=== PATIENT | female | born 1980 | race Caucasian/White ===

== ENCOUNTER 2020-01-16 14:45 | Outpatient (REF) | payer OTHER, SELFPAY ==
[2020-01-16 17:06] LABS: MANUAL DIFF FLAG NO
[2020-01-16 17:11] LABS: Basophils Percent Auto 0.3 % (0-2); Eosinophils Absolute Auto 0.1 X10*3/uL (0.0-0.4); Eosinophils Percent Auto 0.9 % (0-4); Hematocrit 43.7 % (37-47); Hemoglobin 14.5 g/dl (12.0-16.0); Imm Gran Abs Auto 0.01 X10*3/uL (0.00-0.03); Imm Gran Pct Auto 0.1 % (0.0-0.4); Lymphocytes Absolute Auto 2.8 X10*3/uL (1.2-4.9); Lymphocytes Percent Auto 41.3 % (20-40); Mean Corpuscular HGB Conc 33.2 g/dl (31.0-35.0); Mean Corpuscular Hemoglobin 31.3 pg (27.0-33.0); Mean Corpuscular Volume 94.4 fL (80-98); Mean Platelet Volume 9.9 fL (9.4-12.3); Monocytes Absolute Auto 0.5 X10*3/uL (0.1-1.2); Neutrophils Absolute Auto 3.4 X10*3/uL (2.0-8.3); Neutrophils Percent Auto 50.4 % (45-73); Platelet Count 335 X10*3/uL (160-400); Red Blood Count 4.63 X10*6/uL (4.20-5.50); Red Cell Distribution Width 11.9 % (11.0-16.0); White Blood Count 6.8 X10*3/uL (4.8-10.8)
[2020-01-16 17:46] LABS: Alanine Aminotransferase 15 U/L (0-31); Albumin Level 4.6 g/dL (3.5-5.0); Alkaline Phosphatase 86 U/L (39-117); Amylase 54 U/L (28-100); Anion Gap 11 (12-20); Aspartate Amino Transferase 18 U/L (5-31); Bilirubin Direct 0.2 mg/dL (0.0-0.5); Bilirubin Total 0.4 mg/dL (0.0-1.0); Blood Urea Nitrogen 12 mg/dL (9-16); Calcium 9.6 mg/dL (8.4-10.2); Carbon Dioxide 28 mmol/L (22-29); Chloride 101 mmol/L (96-108); Estimated Glomerular Filt Rate > 60; Glucose Random 81 mg/dL (60-115); Lipase 24 U/L (8-78); Potassium 4.2 mmol/l (3.3-5.1); Sodium 136 mmol/L (135-145); Total Protein 7.8 g/dL (6.5-8.0)
== END 2020-01-16 14:46 | disposition home or self-care (01) ==
LOC: HO.HMGCLDS 14:45
PROVIDERS: PCP Internal Medicine; Visit Provider Nurse Practitioner Family
DX: R10.9 Unspecified abdominal pain (principal)
CPT/HCPCS: 36415; 80048; 80076; 82150; 83690; 85025

== ENCOUNTER 2020-01-16 20:26 | Emergency (ER) | payer OTHER, SELFPAY ==
[2020-01-16 20:41] VITALS: BP 124/84; PULSE 93; RESP 16; TEMP 36.9; O2SAT 96; BMI 29.2
--- NOTE | 2020-01-16 21:25 | ED_ITS ---
HPI - Abdominal Pain General Chief Complaint: Abdominal Pain Stated Complaint: ABD PAIN Time Seen by Provider: 01/16/20 21:24 Source: patient Mode of arrival: ambulatory Limitations: no limitations History of Present Illness HPI narrative: epigastric pain started about 12 hours ago MD elicited complaint: abdominal pain Onset (ago): hour(s) Pain Consistency: constant Severity: moderate Quality: sharp Radiation: epigastric Migration to: no migration Associated symptoms: nausea Related Data Home Medications Medication Instructions Recorded Confirmed albuterol sulfate 90 mcg/actuation 2 puff PO Q2H PRN 01/16/20 aerosol inhaler bupropion HCl 150 mg 24 hr tablet, 150 mg PO DAILY 01/16/20 extended release dicyclomine 10 mg capsule [id number] mg PO QID PRN 01/16/20 duloxetine 60 mg capsule,delayed 60 mg PO DAILY 01/16/20 release famotidine 40 mg tablet 40 mg PO BEDTIME 01/16/20 loratadine 10 mg tablet 10 mg PO DAILY 01/16/20 sennosides 8.6 mg tablet 17.2 mg PO DAILY 01/16/20 tamsulosin 0.4 mg capsule 0.4 mg PO DAILY 01/16/20 Previous Rx's Medication Instructions Recorded omeprazole 20 mg capsule,delayed 20 mg PO DAILY 14 Days #14 cap 01/16/20 release ondansetron 4 mg disintegrating 4 mg PO Q6H PRN #30 tab 01/16/20 tablet bkpsjrqzr-foupzi-qhawrawm-scop 5 ml PO QID #50 ml 01/16/20 [] Allergies Allergy/AdvReac Type Severity Reaction Status Date / Time Penicillins Allergy Mild rash Verified 01/16/20 21:57 penicillin V Allergy Unknown swollen, Verified 01/16/20 21:57 swelling Review of Systems Constitutional: Reports no additional constitutional complaints Eyes: Reports no additional eye complaints Denies dizziness Cardiovascular: Reports no additional cardiovascular complaints Respiratory: Reports as per HPI Gastrointestinal: Reports no additional gastrointestinal complaints Genitourinary: Reports no additional female genitourinary complaints Musculoskeletal: Reports no additional musculoskeletal complaints Skin/Breast: Denies rash Reports system reviewed and no additional complaints, except as documented, Denies dizziness and Denies Sensory deficit (Neuro) Psychiatric: Denies anxiety Physical Exam Vital Signs: Vital Signs: Vital Signs Temp Pulse Resp BP Pulse Ox 01/16/20 20:41 98.5 F 93 16 124/84 96 Body Mass Index 29.2 Const: General: healthy appearing Nutritional Appearance: average body habitus Orientation/consciousness: oriented to person and patient oriented x3 Limitations: no limitations HENMT: Head: Yes normal to inspection Ears: external ears normal General nose exam: Normal external nose present Mouth: Normal oral and palatal mucos a present and oropharynx normal Throat: Yes posterior oropharynx normal Eyes: General: appearance normal, both eyes and all related structures Neck: Other: supple Neck: Yes normal visual inspection Chest: Chest palpation & inspection: normal inspection of the chest Resp: Auscultation: clear to auscultation bilaterally Cardio: Jugular venous distension: no JVD Rate: regular rate Rhythm: regular rhythm Heart sounds: S1 normal heart sound present and S2 normal heart sound present GI: Other: mild right upper quadrant tenderness, epigastric pain mild Inspection: Yes normal to inspection Palpation (GI): Tenderness to palpation present (GI) and No hepatosplenomegaly present Auscultation: normal bowel sounds : General: Yes no CVA tenderness Back/Spine/Pelvis: Back: no CVA tenderness Skin: General skin exam: no rashes or lesions noted Neuro: General: oriented to person and patient oriented x3 Cranial nerves: Yes CN's II-XII intact bilaterally Motor exam (neuro): 5/5 motor strength present throughout Sensory Exam: No Sensory deficit (Neuro) Extrem: General: Yes normal to inspection Psych: Appearance: grossly normal Course Course Course Narrative: Unofficial bedside ultasound shows contracted GB no stones seen Reevaluation(s) Reevaluation #1: patient sleeping resting comfortably Time: 22:49 MDM - Abdominal Pain MDM Narrative Medical decision making narrative: patient with gastritis vs biliary colic, however bedside ultrasound negative, lfts normal will dc home on protonix Differential Diagnosis Differential diagnosis: Likely gastritis, pancreatitis and peptic ulcer disease Lab Data Attestation: I reviewed the patient's lab results. Result diagrams: 01/16/20 21:45 01/16/20 21:45 Labs: Lab Results 01/16/20 01/16/20 01/16/20 Range/Units 21:45 21:45 21:45 WBC 7.4 (4.8-10.8) X10*3/uL RBC 4.32 (4.20-5.50) X10*6/uL Hgb 13.5 (12.0-16.0) g/dl Hct 40.6 (37-47) % MCV 94.0 (80-98) fL MCH 31.3 (27.0-33.0) pg MCHC 33.3 (31.0-35.0) g/dl RDW 11.7 (11.0-16.0) % Plt Count 296 (160-400) X10*3/uL MPV 9.5 (9.4-12.3) fL Immature Gran % (Auto) 0.3 (0.0-0.4) % Neut % (Auto) 41.5 L (45-73) % Lymph % (Auto) 46.3 H (20-40) % [place] % (Auto) 10.3 (2-11) % Eos % (Auto) 1.2 (0-4) % Baso % (Auto) 0.4 (0-2) % Lymph # (Auto) 3.4 (1.2-4.9) X10*3/uL [place] # (Auto) 0.8 (0.1-1.2) X10*3/uL Eos # (Auto) 0.1 (0.0-0.4) X10*3/uL Baso # (Auto) 0.0 (0.0-0.2) X10*3/uL Abs Immat Gran (auto) 0.02 (0.00-0.03) X10*3/uL Absolute Neuts (auto) 3.1 (2.0-8.3) X10*3/uL Absolute Nucleated RBC 0.000 (0.0-0.012) X10*3/uL Nucleated RBC % (auto) 0.0 (0.0-0.2) /100WBC Sodium 137 (135-145) mmol/L Potassium 4.3 (3.3-5.1) mmol/l Chloride 103 (96-108) mmol/L Carbon Dioxide 26 (22-29) mmol/L Anion Gap 12 (12-20) BUN 14 (9-16) mg/dL Creatinine 0.86 (0.5-1.4) mg/dL Estim Creat Clear Calc 82.7 Estimated GFR > 60 Random Glucose 87 (60-115) mg/dL Calcium 9.1 (8.4-10.2) mg/dL Total Bilirubin 0.2 (0.0-1.0) mg/dL Direct Bilirubin < 0.2 (0.0-0.5) mg/dL AST 18 (5-31) U/L ALT 14 (0-31) U/L Alkaline Phosphatase 78 (39-117) U/L Total Protein 6.8 (6.5-8.0) g/dL Albumin 3.9 (3.5-5.0) g/dL Lipase 30 (8-78) U/L Urine Test NEGATIVE (NEGATIVE) Discharge Plan Discharge Clinical Impression: Abdominal pain Qualifiers: Abdominal location: epigastric Qualified Code(s): R10.13 - Epigastric pain Gastritis Qualifiers: Gastritis type: unspecified gastritis Chronicity: unspecified Gastritis bleeding: without bleeding Qualified Code(s): K29.70 - Gastritis, unspecified, without bleeding Patient Disposition: Home, Self-Care Instructions: Gastritis (ED) Prescriptions: New fvveachaz-byfzdd-gbsfkkny-scop [] 16.2 mg-0.1037 mg/5 mL (5 mL) elixir 5 ml PO QID Qty: 50 RF: 0 No Action bupropion HCl 150 mg tablet extended release 24 hr 150 mg PO DAILY RF: 0 duloxetine 60 mg capsule,delayed release(DR/EC) 60 mg PO DAILY RF: 0 dicyclomine 10 mg capsule [id number] mg PO QID PRN (Reason: cramps) RF: 0 tamsulosin 0.4 mg capsule 0.4 mg PO DAILY RF: 0 sennosides 8.6 mg tablet 17.2 mg PO DAILY RF: 0 albuterol sulfate 90 mcg/actuation HFA aerosol inhaler 2 puff PO Q2H PRNRF: 0 loratadine 10 mg tablet 10 mg PO DAILY RF: 0 famotidine 40 mg tablet 40 mg PO BEDTIME RF: 0 ondansetron 4 mg tablet,disintegrating 4 mg PO Q6H PRN (Reason: nausea and vomiting) Qty: 30 RF: 0 omeprazole 20 mg capsule,delayed release(DR/EC) 20 mg PO DAILY 14 Days Qty: 14 RF: 0 PMFSH Past Medical History Medical History (Updated 01/16/20 @ 22:54 by Nick Onofre MD) Fibromyalgia Surgical History (Updated 01/16/20 @ 20:43 by Nils Matamoros) Hx of tonsillectomy Social History Social History Advance Directives: No Advance Directives Information Provided: Yes
--- NOTE | 2020-01-16 21:27 | PC.NURSE ---
Pt ambulating to the bathroom to provide urine sample with a negron/steady gait.
--- NOTE | 2020-01-16 21:32 | PC.NURSE ---
at bedside with Yolanda
[2020-01-16 21:55] LABS: MANUAL DIFF FLAG NO
[2020-01-16] MEDS: Pantoprazole Sodium 40 MG/10 ML VIAL IVPUSH (21:57)
[2020-01-16 21:59] LABS: Basophils Percent Auto 0.4 % (0-2); Eosinophils Absolute Auto 0.1 X10*3/uL (0.0-0.4); Eosinophils Percent Auto 1.2 % (0-4); Hematocrit 40.6 % (37-47); Hemoglobin 13.5 g/dl (12.0-16.0); Imm Gran Abs Auto 0.02 X10*3/uL (0.00-0.03); Imm Gran Pct Auto 0.3 % (0.0-0.4); Lymphocytes Absolute Auto 3.4 X10*3/uL (1.2-4.9); Lymphocytes Percent Auto 46.3 % (20-40); Mean Corpuscular HGB Conc 33.3 g/dl (31.0-35.0); Mean Corpuscular Hemoglobin 31.3 pg (27.0-33.0); Mean Platelet Volume 9.5 fL (9.4-12.3); Monocytes Absolute Auto 0.8 X10*3/uL (0.1-1.2); Monocytes Percent Auto 10.3 % (2-11); Neutrophils Absolute Auto 3.1 X10*3/uL (2.0-8.3); Neutrophils Percent Auto 41.5 % (45-73); Platelet Count 296 X10*3/uL (160-400); Red Blood Count 4.32 X10*6/uL (4.20-5.50); Red Cell Distribution Width 11.7 % (11.0-16.0); White Blood Count 7.4 X10*3/uL (4.8-10.8)
[2020-01-16 22:00] LABS: UPreg QC Valid YES; Urine Pregnancy NEGATIVE (NEGATIVE)
[2020-01-16 22:43] LABS: Alanine Aminotransferase 14 U/L (0-31); Albumin Level 3.9 g/dL (3.5-5.0); Alkaline Phosphatase 78 U/L (39-117); Anion Gap 12 (12-20); Aspartate Amino Transferase 18 U/L (5-31); Bilirubin Direct < 0.2 mg/dL (0.0-0.5); Bilirubin Total 0.2 mg/dL (0.0-1.0); Blood Urea Nitrogen 14 mg/dL (9-16); Calcium 9.1 mg/dL (8.4-10.2); Carbon Dioxide 26 mmol/L (22-29); Chloride 103 mmol/L (96-108); Creatinine Clr Calc Pharmacy 82.7; Estimated Glomerular Filt Rate > 60; Glucose Random 87 mg/dL (60-115); Lipase 30 U/L (8-78); Potassium 4.3 mmol/l (3.3-5.1); Sodium 137 mmol/L (135-145); Total Protein 6.8 g/dL (6.5-8.0)
--- NOTE | 2020-01-16 22:48 | PC.NURSE ---
MD at bedside discussing results and plan of care.
[2020-01-16 23:10] VITALS: BP 106/66; PULSE 82; RESP 16; O2SAT 96
== END 2020-01-16 23:17 | disposition home or self-care (01) ==
PROVIDERS: Emergency Provider Emergency Medicine; PCP Internal Medicine
DX: K29.70 Gastritis, unspecified, without bleeding (principal); R10.13 Epigastric pain
CPT/HCPCS: 36415; 80048; 80076; 81025; 83690; 85025; 96374; 99284

== ENCOUNTER 2020-01-17 09:35 | Outpatient (REF) | payer OTHER, SELFPAY ==
--- NOTE | 2020-01-17 09:39 | US_ITS ---
EXAMINATION: US ABDOMEN LIMITED CLINICAL INFORMATION: Unspecified abdominal pain. COMPARISON: Renal ultrasound 09/26/2019, CT abdomen and pelvis 12/29/2018 and 07/24/2018 TECHNIQUE: Real-time imaging of the right upper quadrant abdominal viscera. FINDINGS: PANCREAS: Pancreas is normal in size and contour and echogenicity. No pancreatic ductal distention or retroperitoneal effusion. LIVER: The liver is normal in size. The liver contour is normal. Parenchymal echogenicity is normal. There is a small cyst central right lobe measuring approximately 1.2 x 0.9 x 0.8 cm, also noted on prior imaging. There is no intrahepatic biliary duct dilatation seen. GALLBLADDER: Normal. The gallbladder is physiologically distended without evidence of stones, sludge, polyps, wall thickening or pericholecystic fluid. COMMON BILE DUCT: Normal in caliber measuring 0.4 cm in diameter. 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 No hydronephrosis. No renal calculi or focal parenchymal lesions. The kidney measures 12.1 cm in maximum dimension. FREE FLUID: None. IMPRESSION: 1. No cholelithiasis or ductal dilatation. Unremarkable pancreas. 2. No right hydronephrosis.
== END 2020-01-17 09:36 | disposition home or self-care (01) ==
LOC: HO.HMGCX 09:35
PROVIDERS: PCP Internal Medicine; Visit Provider Nurse Practitioner Family
DX: R10.9 Unspecified abdominal pain (principal)
CPT/HCPCS: 76705

== ENCOUNTER 2020-02-04 10:10 | Emergency (ER) | payer OTHER, SELFPAY ==
[2020-02-04 10:25] VITALS: BP 142/88; PULSE 68; RESP 16; TEMP 36; O2SAT 100; BMI 28.3
--- NOTE | 2020-02-04 10:26 | ED_ITS ---
HPI - Abdominal Pain General Chief Complaint: Abdominal Pain Stated Complaint: abd pain Time Seen by Provider: 02/04/20 10:17 Source: patient Mode of arrival: ambulatory Limitations: no limitations History of Present Illness HPI narrative: 39 yo female with a past medical history of fibromyalgia, h.pylpori here with abdominal pain x 2 days with nausea. No vomiting/diarrhea/urinary symptoms/fevers/chills. Seen here 01/16 and had labs, US unremarkable. Discussed over zoom with her GI (July Luciano) after ED visit who recommended repeat h.pylori testing, starting prilosec 20mg daily. Patient tells me she has been working alot and has not been able to provide stool sample for h.pylori. Increasing pain since yesterday after eating some [place] potatoes and corned beef meal. MD elicited complaint: abdominal pain Onset (ago): day(s) Pain Consistency: constant Location: diffuse Severity: moderate Migration to: no migration Exacerbating factors: nothing Relieving factors: nothing Associated symptoms: denies other symptoms Related Data Home Medications Medication Instructions Recorded Confirmed albuterol sulfate 90 mcg/actuation 2 puff PO Q2H PRN 01/16/20 aerosol inhaler bupropion HCl 150 mg 24 hr tablet, 150 mg PO DAILY 01/16/20 extended release dicyclomine 10 mg capsule [id number] mg PO QID PRN 01/16/20 duloxetine 60 mg capsule,delayed 60 mg PO DAILY 01/16/20 release famotidine 40 mg tablet 40 mg PO BEDTIME 01/16/20 loratadine 10 mg tablet 10 mg PO DAILY 01/16/20 sennosides 8.6 mg tablet 17.2 mg PO DAILY 01/16/20 tamsulosin 0.4 mg capsule 0.4 mg PO DAILY 01/16/20 Previous Rx's Medication Instructions Recorded ondansetron 4 mg disintegrating 4 mg PO Q6H PRN #30 tab 01/16/20 tablet tctuexpit-aayzrg-skeklvvh-scop 5 ml PO QID #50 ml 01/16/20 [] nitrofurantoin monohyd/m-cryst 100 mg PO Q12H 5 Days #10 cap 02/04/20 [Macrobid] sucralfate [Carafate] 1 g PO BID #14 tab 02/04/20 Allergies Allergy/AdvReac Type Severity Reaction Status Date / Time Penicillins Allergy Mild rash Verified 01/16/20 21:57 penicillin V Allergy Unknown swollen, Verified 01/16/20 21:57 swelling Review of Systems Review of Systems Yes all other systems are reviewed and are negative Constitutional: Reports no additional constitutional complaints, Denies body ache(s), Denies chills, Denies fever(s), Denies headache(s) and Denies weakness Eyes: Reports no additional eye complaints and Denies change in vision Reports system reviewed and no additional complaints, except as documented, Denies dizziness, Denies headache(s), Denies nasal congestion, Denies nasal dis charge and Denies neck pain Cardiovascular: Reports no additional cardiovascular complaints, Denies chest pain, Denies leg edema and Denies dyspnea Respiratory: Reports no additional respiratory complaints, Denies cough and Denies dyspnea Gastrointestinal: Reports no additional gastrointestinal complaints, Reports abdominal pain, Denies diarrhea, Reports nausea and Denies vomiting Genitourinary: Reports no additional female genitourinary complaints and Denies urinary incontinence Musculoskeletal: Reports no additional musculoskeletal complaints, Denies back pain, Denies arthralgias, Denies joint swelling, Denies neck pain, Denies numbness and Denies tingling Skin/Breast: Reports system reviewed and no additional complaints, except as docu and Denies rash Reports system reviewed and no additional complaints, except as documented, Den ies Abnormal speech present, Denies dizziness, Denies headache(s), Denies numbness, Denies tingling and Denies weakness Physical Exam Vital Signs: Vital Signs: Vital Signs Temp Pulse Resp BP Pulse Ox 02/04/20 13:29 95.8 F L 66 15 109/67 99 02/04/20 11:02 16 02/04/20 10:25 96.8 F 68 16 142/88 H 100 Body Mass Index 28.3 Const: Other: Appears uncomfortable, in pain General: cooperative and healthy appearing Orientation/consciousness: patient oriented x3 Limitations: no limitations HENMT: Head: Yes normal to inspection Ears: hearing grossly normal bilaterally General nose exam: Normal external nose present Face and sinus: Yes normal facial exam Mouth: Normal oral and palatal mucosa present Throat: Yes posterior oropharynx normal Eyes: General: appearance normal, both eyes and all related structures Pupils: Equal, round and reactive pupils present Neck: Neck: Yes normal visual inspection Chest: Chest palpation & inspection: normal inspection of the chest Resp: Effort & Inspection: normal respiratory effort Auscultation: clear to auscultation bilaterally Cardio: Rate: regular rate Rhythm: regular rhythm Peripheral pulses: Peripheral pulses 2+ throughout GI: Other: Diffuse moderate tenderness, more focal in the right upper/lower quadrants. Inspection: Yes normal to inspection Palpation (GI): Soft to palpation and Tenderness to palpation present (GI) Auscultation: normal bowel sounds Back/Spine/Pelvis: Thoracic/Lumbar Spine: thoracic and lumbar spine normal to inspection Skin: General skin exam: no rashes or lesions noted Neuro: General: patient oriented x3, no focal motor deficits and normal sensation to monofilament Cranial nerves: Yes Equal, round and reactive pupils present Cognition (Neuro): normal cognition Speech: No Abnormal speech present Gait exam (Neuro): Normal gait present Motor exam (neuro): 5/5 motor strength present throughout Extrem: General: Yes normal to inspection Course Course Course Narrative: 39 yo female here with diffuse AP, nausea x 2 days. Will check labs, UA, check CT A/P. Give NSB, antiemetic, analgesia and re-assess. 1305-Labs unremarkable, UA ?early UTI. Ct a/p unremarkable. Unable to visualize appendix however patient has no focal tenderness in the RLQ. No rebound, guarding, leukocytosis. Feeling improved on discharge. Will discharge home and continue PPI, start carafate, f/u with GI for h.pylori testing as previously recommended. MDM - Abdominal Pain MDM Narrative Medical decision making narrative: Considered peptic ulcer disease, gastritis, GERD, gastroenteritis, cholecystitis, appendicitis, renal colic Medical Records Attestation: I reviewed the patient's medical records. Lab Data Attestation: I reviewed the patient's lab results. Result diagrams: 02/04/20 10:52 02/04/20 10:52 Labs: Lab Results 02/04/20 02/04/20 02/04/20 Range/Units 10:52 10:52 10:52 WBC 5.7 (4.8-10.8) X10*3/uL RBC 4.67 (4.20-5.50) X10*6/uL Hgb 14.6 (12.0-16.0) g/dl Hct 44.1 (37-47) % MCV 94.4 (80-98) fL MCH 31.3 (27.0-33.0) pg MCHC 33.1 (31.0-35.0) g/dl RDW 11.6 (11.0-16.0) % Plt Count 356 (160-400) X10*3/uL MPV 9.5 (9.4-12.3) fL Immature Gran % (Auto) 0.0 (0.0-0.4) % Neut % (Auto) 42.9 L (45-73) % Lymph % (Auto) 47.5 H (20-40) % [place] % (Auto) 8.5 (2-11) % Eos % (Auto) 0.7 (0-4) % Baso % (Auto) 0.4 (0-2) % Lymph # (Auto) 2.7 (1.2-4.9) X10*3/uL [place] # (Auto) 0.5 (0.1-1.2) X10*3/uL Eos # (Auto) 0.0 (0.0-0.4) X10*3/uL Baso # (Auto) 0.0 (0.0-0.2) X10*3/uL Abs Immat Gran (auto) 0.00 (0.00-0.03) X10*3/uL Absolute Neuts (auto) 2.4 (2.0-8.3) X10*3/uL Absolute Nucleated RBC 0.000 (0.0-0.012) X10*3/uL Nucleated RBC % (auto) 0.0 (0.0-0.2) /100WBC Sodium 140 (135-145) mmol/L Potassium 4.8 (3.3-5.1) mmol/l Chloride 102 (96-108) mmol/L Carbon Dioxide 31 H (22-29) mmol/L Anion Gap 12 (12-20) BUN 12 (9-16) mg/dL Creatinine 0.79 (0.5-1.4) mg/dL Estim Creat Clear Calc 88.7 Estimated GFR > 60 Random Glucose 90 (60-115) mg/dL Calcium 9.8 (8.4-10.2) mg/dL Magnesium 2.2 (1.6-2.6) mg/dL Total Bilirubin 0.7 (0.0-1.0) mg/dL Direct Bilirubin 0.2 (0.0-0.5) mg/dL AST 23 (5-31) U/L ALT 14 (0-31) U/L Alkaline Phosphatase 88 (39-117) U/L Total Protein 7.5 (6.5-8.0) g/dL Albumin 4.4 (3.5-5.0) g/dL Lipase 37 (8-78) U/L Urine Color Urine Appearance Urine pH (5.0-8.0) Ur Specific [place] (1.005-1.025) Urine Protein (NEG-TRACE) MG/DL Urine Glucose (UA) (NEG) MG/DL Urine Ketones (NEG) MG/DL Urine Blood (NEG) Urine Nitrite (NEG) Ur Leukocyte Esterase (NEG) Urine RBC (0) /HPF Urine WBC (0-4) /HPF Ur Squamous Epith Cells /LPF Urine Bacteria /LPF Urine Test (NEGATIVE) 02/04/20 Range/Units 10:52 WBC (4.8-10.8) X10*3/uL RBC (4.20-5.50) X10*6/uL Hgb (12.0-16.0) g/dl Hct (37-47) % MCV (80-98) fL MCH (27.0-33.0) pg MCHC (31.0-35.0) g/dl RDW (11.0-16.0) % Plt Count (160-400) X10*3/uL MPV (9.4-12.3) fL Immature Gran % (Auto) (0.0-0.4) % Neut % (Auto) (45-73) % Lymph % (Auto) (20-40) % [place] % (Auto) (2-11) % Eos % (Auto) (0-4) % Baso % (Auto) (0-2) % Lymph # (Auto) (1.2-4.9) X10*3/uL [place] # (Auto) (0.1-1.2) X10*3/uL Eos # (Auto) (0.0-0.4) X10*3/uL Baso # (Auto) (0.0-0.2) X10*3/uL Abs Immat Gran (auto) (0.00-0.03) X10*3/uL Absolute Neuts (auto) (2.0-8.3) X10*3/uL Absolute Nucleated RBC (0.0-0.012) X10*3/uL Nucleated RBC % (auto) (0.0-0.2) /100WBC Sodium (135-145) mmol/L Potassium (3.3-5.1) mmol/l Chloride (96-108) mmol/L Carbon Dioxide (22-29) mmol/L Anion Gap (12-20) BUN (9-16) mg/dL Creatinine (0.5-1.4) mg/dL Estim Creat Clear Calc Estimated GFR Random Glucose (60-115) mg/dL Calcium (8.4-10.2) mg/dL Magnesium (1.6-2.6) mg/dL Total Bilirubin (0.0-1.0) mg/dL Direct Bilirubin (0.0-0.5) mg/dL AST (5-31) U/L ALT (0-31) U/L Alkaline Phosphatase (39-117) U/L Total Protein (6.5-8.0) g/dL Albumin (3.5-5.0) g/dL Lipase (8-78) U/L Urine Color YELLOW Urine Appearance CLEAR Urine pH 7.0 (5.0-8.0) Ur Specific [place] 1.010 (1.005-1.025) Urine Protein NEG (NEG-TRACE) MG/DL Urine Glucose (UA) NEG (NEG) MG/DL Urine Ketones NEG (NEG) MG/DL Urine Blood TRACE (NEG) Urine Nitrite NEG (NEG) Ur Leukocyte Esterase NEG (NEG) Urine RBC 0-2 (0) /HPF Urine WBC 0 (0-4) /HPF Ur Squamous Epith Cells TRACE /LPF Urine Bacteria NONE /LPF Urine Test NEGATIVE (NEGATIVE) Imaging Data CT scan - abdomen: Attestation: I personally reviewed and interpreted this imaging study as follows: Radiologist's impression: EXAMINATION: CT ABDOMEN AND PELVIS WITH CONTRAST CLINICAL INFORMATION: Diffuse abdominal pain, vomiting. COMPARISON: CT chest 09/17/2019, CT abdomen and pelvis 12/21/2018 TECHNIQUE: Multidetector volumetric images were obtained from the superior aspect of the liver through the pubic symphysis following administration 85 mL ofOmnipaque 350 intravenous contrast. Sagittal and coronal reformatted images were obtained on the technologist's workstation. Oral contrast: No This CT examination was performed using dose optimization techniques as appropriate, variously including the following: *Automated exposure control *Adjustment of mA and/or kV according to patient size (this includes techniques or standardized protocols for targeted exams where dose is matched to indication/reason for exam; i.e. extremities or head) *Use of iterative reconstruction technique DLP: 668 mGy-cm FINDINGS: LUNG BASES: There is minimal dependent atelectasis. LIVER, GALLBLADDER, AND BILIARY TREE: The liver is normal in size, shape, and attenuation. There is a 1.1 cm hypodensity right hepatic lobe, image 21/3, likely cysts. There is a left hepatic lobe hypodensity with peripheral contrast enhancement likely hemangioma measuring 1.5 cm and axial image 17/3. No intrahepatic ductal dilatation seen. The gallbladder is unremarkable with no evidence of radiopaque gallstones, gallbladder wall thickening, or obvious pericholecystic inflammatory changes. PANCREAS: Unremarkable. SPLEEN: Unremarkable. ADRENAL GLANDS: Unremarkable. KIDNEYS AND URETERS: The kidneys are normal in size, shape, and attenuation. No hydronephrosis, hydroureter, or calculi seen. No perinephric stranding. BLADDER: Unremarkable. GASTROINTESTINAL TRACT: There is scattered stool and gas seen throughout the colon without distention. The small bowel loops are normal caliber. Appendix is not visualized with certainty. The stomach is nondistended. ABDOMINAL WALL: No significant hernia is appreciated. LYMPH NODES: Few benign lymph nodes are seen in the right lower quadrant mesentery. VASCULAR: Unremarkable. PELVIC VISCERA: The uterus is retroverted with an IUD well located within endometrial canal. No adnexal mass seen. There is no free fluid. OSSEOUS STRUCTURES: No lytic or sclerotic process seen. CT/CT abdomen pelvis w con IMPRESSION: No acute intra-abdominal process seen. Likely small cyst right hepatic lobe and a hemangioma left hepatic lobe. Mild constipation. Appendix is not seen. Retroverted uterus. Discharge Plan Discharge Clinical Impression: Gastritis, UTI (urinary tract infection) Patient Disposition: Home, Self-Care Instructions: Gastritis (ED) Additional Instructions: Very bland diet Follow-up with GI as discussed for additional testing. Prescriptions: New nitrofurantoin monohyd/m-cryst [Macrobid] 100 mg capsule 100 mg PO Q12H 5 Days Qty: 10 RF: 0 sucralfate [Carafate] 1 gram tablet 1 g PO BID Qty: 14 RF: 0 No Action kmjhsrjzq-dgscor-gjxnqvbu-scop [] 16.2 mg-0.1037 mg/5 mL (5 mL) elixir 5 ml PO QID Qty: 50 RF: 0 bupropion HCl 150 mg tablet extended release 24 hr 150 mg PO DAILY RF: 0 duloxetine 60 mg capsule,delayed release(DR/EC) 60 mg PO DAILY RF: 0 dicyclomine 10 mg capsule [id number] mg PO QID PRN (Reason: cramps) RF: 0 tamsulosin 0.4 mg capsule 0.4 mg PO DAILY RF: 0 sennosides 8.6 mg tablet 17.2 mg PO DAILY RF: 0 albuterol sulfate 90 mcg/actuation HFA aerosol inhaler 2 puff PO Q2H PRNRF: 0 loratadine 10 mg tablet 10 mg PO DAILY RF: 0 famotidine 40 mg tablet 40 mg PO BEDTIME RF: 0 ondansetron 4 mg tablet,disintegrating 4 mg PO Q6H PRN (Reason: nausea and vomiting) Qty: 30 RF: 0 Referrals: Monalisa Urban MD [Primary Care Provider] - 2 days Stand Alone Forms: Work/School Release Interventions: ED Discharge Assessment Last Done: 02/04/20 14:42 Discharge Date/Time: 02/04/20 14:43 [facility] Past Medical History Attestation statement: The following information was validated with the patient. Source: obtained from family and nursing notes reviewed Medical History Fibromyalgia Surgical History Hx of tonsillectomy Social History Social History Smoking Status: Never smoker Use of substances other than those prescribed or required for medical reasons: No Advance Directives: No Advance Directives Information Provided: Yes
[2020-02-04 11:02] VITALS: RESP 16
[2020-02-04] MEDS: Morphine Sulfate 4 MG/ML CARTRIDGE IVPUSH (11:02)
[2020-02-04] MEDS: ondansetron HCL 4 MG/2 ML VIAL IVPUSH (11:02)
[2020-02-04] MEDS: 0.9 % Sodium Chloride 1,000 ML 999 ML IV (11:02)
[2020-02-04] MEDS: Famotidine/PF 20 MG/2 ML VIAL IVPUSH (11:03)
--- NOTE | 2020-02-04 11:03 | PC.NURSE ---
ns 1l bolus scanned x 3
[2020-02-04 11:25] LABS: MANUAL DIFF FLAG NO
[2020-02-04 11:28] LABS: Basophils Percent Auto 0.4 % (0-2); Eosinophils Percent Auto 0.7 % (0-4); Hematocrit 44.1 % (37-47); Hemoglobin 14.6 g/dl (12.0-16.0); Lymphocytes Absolute Auto 2.7 X10*3/uL (1.2-4.9); Lymphocytes Percent Auto 47.5 % (20-40); Mean Corpuscular HGB Conc 33.1 g/dl (31.0-35.0); Mean Corpuscular Hemoglobin 31.3 pg (27.0-33.0); Mean Corpuscular Volume 94.4 fL (80-98); Mean Platelet Volume 9.5 fL (9.4-12.3); Monocytes Absolute Auto 0.5 X10*3/uL (0.1-1.2); Monocytes Percent Auto 8.5 % (2-11); Neutrophils Absolute Auto 2.4 X10*3/uL (2.0-8.3); Neutrophils Percent Auto 42.9 % (45-73); Platelet Count 356 X10*3/uL (160-400); Red Blood Count 4.67 X10*6/uL (4.20-5.50); Red Cell Distribution Width 11.6 % (11.0-16.0); White Blood Count 5.7 X10*3/uL (4.8-10.8)
[2020-02-04 11:48] LABS: Lipase 37 U/L (8-78); Magnesium 2.2 mg/dL (1.6-2.6)
[2020-02-04 11:55] LABS: Alanine Aminotransferase 14 U/L (0-31); Albumin Level 4.4 g/dL (3.5-5.0); Alkaline Phosphatase 88 U/L (39-117); Anion Gap 12 (12-20); Aspartate Amino Transferase 23 U/L (5-31); Bilirubin Direct 0.2 mg/dL (0.0-0.5); Bilirubin Total 0.7 mg/dL (0.0-1.0); Blood Urea Nitrogen 12 mg/dL (9-16); Calcium 9.8 mg/dL (8.4-10.2); Carbon Dioxide 31 mmol/L (22-29); Chloride 102 mmol/L (96-108); Creatinine Clr Calc Pharmacy 88.7; Estimated Glomerular Filt Rate > 60; Glucose Random 90 mg/dL (60-115); Potassium 4.8 mmol/l (3.3-5.1); Sodium 140 mmol/L (135-145); Total Protein 7.5 g/dL (6.5-8.0)
[2020-02-04 12:02] LABS: Glucose Urine UA NEG (NEG); Leukocyte Esterase Urine NEG (NEG); Nitrite Urine NEG (NEG); Urine Blood TRACE (NEG); Urine Ketones NEG (NEG); Urine Protein NEG (NEG-TRACE)
[2020-02-04 12:06] LABS: Appearance Urine CLEAR; Color Urine YELLOW
[2020-02-04 12:08] LABS: UPreg QC Valid YES; Urine Pregnancy NEGATIVE (NEGATIVE)
[2020-02-04 12:28] LABS: RBC Urine 0-2 /HPF (0); Squamous Epithelial Cell Urine TRACE /LPF; WBC Urine 0 /HPF (0-4)
[2020-02-04] MEDS: iohexoL 350 MG/ML 100 ML INFUS..BTL IV (12:31)
[2020-02-04 13:29] VITALS: BP 109/67; PULSE 66; RESP 15; TEMP 35.4; O2SAT 99
[2020-02-04] MEDS: Lidocaine HCl Viscous 2 % 15 ML SOLUTION MUCOUS MEM (13:35)
[2020-02-04] MEDS: Magnesium Hydrox/Alum Hydrox 30 ML ORAL.SUSP PO (13:35)
== END 2020-02-04 14:43 | disposition home or self-care (01) ==
PROVIDERS: Nurse Practitioner Family; Emergency Provider Emergency Medicine; PCP Internal Medicine
DX: K29.70 Gastritis, unspecified, without bleeding (principal); N39.0 Urinary tract infection, site not specified; Z79.899 Other long term (current) drug therapy
CPT/HCPCS: 36415; 74177; 80048; 80076; 81001; 81003; 81025; 83690; 83735; 85025; 96361; 96374; 96375; 99284; J2270; J2405; Q9967

== ENCOUNTER 2020-02-05 17:58 | Outpatient (REF) | payer OTHER, SELFPAY | END 2020-02-05 17:59 | disposition home or self-care (01) | LOC: HO.LNP 17:58 | PROVIDERS: Visit Provider Nurse Practitioner | DX: R10.13 Epigastric pain (principal); A04.8 Other specified bacterial intestinal infections | CPT/HCPCS: 87338 ==

== ENCOUNTER 2020-02-17 18:47 | Emergency (ER) | payer OTHER, SELFPAY ==
[2020-02-17 19:23] VITALS: BP 115/62; PULSE 100; RESP 16; TEMP 36.5; O2SAT 100; BMI 27.4
[2020-02-17 20:22] LABS: Glucose Urine UA NEG (NEG); Leukocyte Esterase Urine NEG (NEG); Nitrite Urine NEG (NEG); Urine Blood 1+ (NEG); Urine Ketones NEG (NEG); Urine Protein NEG (NEG-TRACE)
[2020-02-17 20:24] LABS: Appearance Urine CLEAR; Color Urine YELLOW
[2020-02-17 20:25] LABS: UPreg QC Valid YES; Urine Pregnancy NEGATIVE (NEGATIVE)
[2020-02-17 20:29] LABS: Squamous Epithelial Cell Urine 1+ /LPF; WBC Urine 0 /HPF (0-4)
[2020-02-17 21:33] LABS: Basophils Percent Auto 0.4 % (0-2); Eosinophils Percent Auto 0.5 % (0-4); Hematocrit 41.1 % (37-47); Hemoglobin 13.6 g/dl (12.0-16.0); Imm Gran Abs Auto 0.01 X10*3/uL (0.00-0.03); Imm Gran Pct Auto 0.1 % (0.0-0.4); Lymphocytes Absolute Auto 3.6 X10*3/uL (1.2-4.9); Lymphocytes Percent Auto 47.1 % (20-40); MANUAL DIFF FLAG NO; Mean Corpuscular HGB Conc 33.1 g/dl (31.0-35.0); Mean Corpuscular Hemoglobin 31.2 pg (27.0-33.0); Mean Corpuscular Volume 94.3 fL (80-98); Mean Platelet Volume 9.4 fL (9.4-12.3); Monocytes Absolute Auto 0.7 X10*3/uL (0.1-1.2); Monocytes Percent Auto 8.8 % (2-11); Neutrophils Absolute Auto 3.3 X10*3/uL (2.0-8.3); Neutrophils Percent Auto 43.1 % (45-73); Platelet Count 293 X10*3/uL (160-400); Red Blood Count 4.36 X10*6/uL (4.20-5.50); Red Cell Distribution Width 11.5 % (11.0-16.0); White Blood Count 7.7 X10*3/uL (4.8-10.8)
--- NOTE | 2020-02-17 21:35 | ED.ABDPAIN ---
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 likely IBS comes here with lower abdominal pain for last 6 hours with nausea patient has been constipated for a while no vomiting no fever previous workup was negative had upper GI 3 years ago which showed H pylori patient has a plan to follow-up with poultry slaughterer MD elicited complaint: abdominal pain Pertinent past history: constipation Onset (ago): hour(s) (7) Pain Consistency: constant Location: suprapubic Severity: mild Quality: cramping Radiation: suprapubic Migration to: no migration Related Data Home Medications Medication Instructions Recorded Confirmed albuterol sulfate 90 mcg/actuation 2 puff PO Q2H PRN 01/16/20 aerosol inhaler bupropion HCl 150 mg 24 hr tablet, 150 mg PO DAILY 01/16/20 extended release dicyclomine 10 mg capsule [id number] mg PO QID PRN 01/16/20 duloxetine 60 mg capsule,delayed 60 mg PO DAILY 01/16/20 release famotidine 40 mg tablet 40 mg PO BEDTIME 01/16/20 loratadine 10 mg tablet 10 mg PO DAILY 01/16/20 sennosides 8.6 mg tablet 17.2 mg PO DAILY 01/16/20 tamsulosin 0.4 mg capsule 0.4 mg PO DAILY 01/16/20 Previous Rx's Medication Instructions Recorded ondansetron 4 mg disintegrating 4 mg PO Q6H PRN #30 tab 01/16/20 tablet dcipesbdz-zosmis-oshkfgvj-scop 5 ml PO QID #50 ml 01/16/20 [] nitrofurantoin monohyd/m-cryst 100 mg PO Q12H 5 Days #10 cap 02/04/20 [Macrobid] sucralfate [Carafate] 1 g PO BID #14 tab 02/04/20 Allergies Allergy/AdvReac Type Severity Reaction Status Date / Time Penicillins Allergy Mild rash Verified 01/16/20 21:57 penicillin V Allergy Unknown swollen, Verified 01/16/20 21:57 swelling Review of Systems Review of Systems REVIEW OF SYSTEMS: Pertinent positives and negatives are stated above in the history. GEN: no fevers, chills, fatigue HEENT: no nasal congestion, sore throat, ear pain NEURO: no headache, dizziness, focal weakness PULM: no cough, shortness of breath CV: no chest pain, palpitations, LE edema ABD: no vomiting, diarrhea : no dysuria, urgency, frequency SKIN: no rash ROS otherwise negative x 10 Physical Exam Vital Signs: Vital Signs: Last Vital Signs Temp 97.7 F 02/17/20 19:23 Pulse 100 02/17/20 19:23 Resp 16 02/17/20 19:23 BP 115/62 02/17/20 19:23 Pulse Ox 100 02/17/20 19:23 Body Mass Index 27.4 Appearance: Alert. Oriented X3. No acute distress. Eyes: Pupils equal, round and reactive to light. ENT: Pharynx normal. Neck: Normal inspection. Neck supple. CVS: Normal heart rate and rhythm. Pulses normal. Respiratory: No respiratory distress. Breath sounds normal. Abdomen: Soft mild diffuse tenderness lower abdomen no rebound tenderness no guarding no masses bowel sounds normal. Skin: Skin warm and dry. Normal skin color. Normal skin turgor. Extremities: No lower extremity edema. Good range of movement Neuro: Oriented X 3. No motor deficit. No sensory deficit. Course Course Course Narrative: patient with chronic nonspecific lower abdominal pain in the past on dicyclomine which she did not take today comes here with similar complaints already seen by poultry slaughterer clinically patient is IBS labs were normal to discharge her home on dicyclomine advised to follow-up with poultry slaughterer MDM - Abdominal Pain Differential Diagnosis Differential diagnosis: Likely abdominal pain and constipation Medical Records Attestation: I reviewed the patient's medical records. Lab Data Attestation: I reviewed the patient's lab results. Result diagrams: 02/17/20 21:25 02/17/20 21:25 Labs: Lab Results 02/17/20 02/17/20 02/17/20 Range/Units 19:59 19:59 21:25 WBC 7.7 (4.8-10.8) X10*3/uL RBC 4.36 (4.20-5.50) X10*6/uL Hgb 13.6 (12.0-16.0) g/dl Hct 41.1 (37-47) % MCV 94.3 (80-98) fL MCH 31.2 (27.0-33.0) pg MCHC 33.1 (31.0-35.0) g/dl RDW 11.5 (11.0-16.0) % Plt Count 293 (160-400) X10*3/uL MPV 9.4 (9.4-12.3) fL Immature Gran % (Auto) 0.1 (0.0-0.4) % Neut % (Auto) 43.1 L (45-73) % Lymph % (Auto) 47.1 H (20-40) % [place] % (Auto) 8.8 (2-11) % Eos % (Auto) 0.5 (0-4) % Baso % (Auto) 0.4 (0-2) % Lymph # (Auto) 3.6 (1.2-4.9) X10*3/uL [place] # (Auto) 0.7 (0.1-1.2) X10*3/uL Eos # (Auto) 0.0 (0.0-0.4) X10*3/uL Baso # (Auto) 0.0 (0.0-0.2) X10*3/uL Abs Immat Gran (auto) 0.01 (0.00-0.03) X10*3/uL Absolute Neuts (auto) 3.3 (2.0-8.3) X10*3/uL Absolute Nucleated RBC 0.000 (0.0-0.012) X10*3/uL Nucleated RBC % (auto) 0.0 (0.0-0.2) /100WBC Hold Blue Top Sodium (135-145) mmol/L Potassium (3.3-5.1) mmol/l Chloride (96-108) mmol/L Carbon Dioxide (22-29) mmol/L Anion Gap (12-20) BUN (9-16) mg/dL Creatinine (0.5-1.4) mg/dL Estim Creat Clear Calc Estimated GFR Random Glucose (60-115) mg/dL Calcium (8.4-10.2) mg/dL Total Bilirubin (0.0-1.0) mg/dL AST (5-31) U/L ALT (0-31) U/L Alkaline Phosphatase (39-117) U/L Total Protein (6.5-8.0) g/dL Albumin (3.5-5.0) g/dL Urine Color YELLOW Urine Appearance CLEAR Urine pH 7.0 (5.0-8.0) Ur Specific [place] 1.010 (1.005-1.025) Urine Protein NEG (NEG-TRACE) MG/DL Urine Glucose (UA) NEG (NEG) MG/DL Urine Ketones NEG (NEG) MG/DL Urine Blood 1+ H (NEG) Urine Nitrite NEG (NEG) Ur Leukocyte Esterase NEG (NEG) Urine RBC 1-4 (0) /HPF Urine WBC 0 (0-4) /HPF Ur Squamous Epith Cells 1+ /LPF Urine Bacteria NONE /LPF Urine Test NEGATIVE (NEGATIVE) 02/17/20 02/17/20 Range/Units 21:25 21:25 WBC (4.8-10.8) X10*3/uL RBC (4.20-5.50) X10*6/uL Hgb (12.0-16.0) g/dl Hct (37-47) % MCV (80-98) fL MCH (27.0-33.0) pg MCHC (31.0-35.0) g/dl RDW (11.0-16.0) % Plt Count (160-400) X10*3/uL MPV (9.4-12.3) fL Immature Gran % (Auto) (0.0-0.4) % Neut % (Auto) (45-73) % Lymph % (Auto) (20-40) % [place] % (Auto) (2-11) % Eos % (Auto) (0-4) % Baso % (Auto) (0-2) % Lymph # (Auto) (1.2-4.9) X10*3/uL [place] # (Auto) (0.1-1.2) X10*3/uL Eos # (Auto) (0.0-0.4) X10*3/uL Baso # (Auto) (0.0-0.2) X10*3/uL Abs Immat Gran (auto) (0.00-0.03) X10*3/uL Absolute Neuts (auto) (2.0-8.3) X10*3/uL Absolute Nucleated RBC (0.0-0.012) X10*3/uL Nucleated RBC % (auto) (0.0-0.2) /100WBC Hold Blue Top SEE NOTE Sodium 137 (135-145) mmol/L Potassium 4.0 (3.3-5.1) mmol/l Chloride 102 (96-108) mmol/L Carbon Dioxide 29 (22-29) mmol/L Anion Gap 10 L (12-20) BUN 13 (9-16) mg/dL Creatinine 0.80 (0.5-1.4) mg/dL Estim Creat Clear Calc 86.2 Estimated GFR > 60 Random Glucose 67 (60-115) mg/dL Calcium 8.9 D (8.4-10.2) mg/dL Total Bilirubin 0.5 (0.0-1.0) mg/dL AST 17 (5-31) U/L ALT 13 (0-31) U/L Alkaline Phosphatase 72 (39-117) U/L Total Protein 7.1 (6.5-8.0) g/dL Albumin 4.3 (3.5-5.0) g/dL Urine Color Urine Appearance Urine pH (5.0-8.0) Ur Specific [place] (1.005-1.025) Urine Protein (NEG-TRACE) MG/DL Urine Glucose (UA) (NEG) MG/DL Urine Ketones (NEG) MG/DL Urine Blood (NEG) Urine Nitrite (NEG) Ur Leukocyte Esterase (NEG) Urine RBC (0) /HPF Urine WBC (0-4) /HPF Ur Squamous Epith Cells /LPF Urine Bacteria /LPF Urine Test (NEGATIVE) Discharge Plan Discharge Prescriptions: No Action nitrofurantoin monohyd/m-cryst [Macrobid] 100 mg capsule 100 mg PO Q12H 5 Days Qty: 10 RF: 0 sucralfate [Carafate] 1 gram tablet 1 g PO BID Qty: 14 RF: 0 cuxxvjphb-meryye-[place]ak-scop [] 16.2 mg-0.1037 mg/5 mL (5 mL) elixir 5 ml PO QID Qty: 50 RF: 0 bupropion HCl 150 mg tablet extended release 24 hr 150 mg PO DAILY RF: 0 duloxetine 60 mg capsule,delayed release(DR/EC) 60 mg PO DAILY RF: 0 dicyclomine 10 mg capsule [id number] mg PO QID PRN (Reason: cramps) RF: 0 tamsulosin 0.4 mg capsule 0.4 mg PO DAILY RF: 0 sennosides 8.6 mg tablet 17.2 mg PO DAILY RF: 0 albuterol sulfate 90 mcg/actuation HFA aerosol inhaler 2 puff PO Q2H PRNRF: 0 loratadine 10 mg tablet 10 mg PO DAILY RF: 0 famotidine 40 mg tablet 40 mg PO BEDTIME RF: 0 ondansetron 4 mg tablet,disintegrating 4 mg PO Q6H PRN (Reason: nausea and vomiting) Qty: 30 RF: 0 PMFSH Past Medical History Medical History Fibromyalgia Surgical History Hx of tonsillectomy Social History Social History Smoking Status: Never smoker Advance Directives: No Advance Directives Information Provided: No Advance Directives on File: No
[2020-02-17] MEDS: Dicyclomine HCl 10 MG CAPSULE 20 MG PO (21:51)
[2020-02-17 22:08] LABS: Alanine Aminotransferase 13 U/L (0-31); Albumin Level 4.3 g/dL (3.5-5.0); Alkaline Phosphatase 72 U/L (39-117); Anion Gap 10 (12-20); Aspartate Amino Transferase 17 U/L (5-31); Bilirubin Total 0.5 mg/dL (0.0-1.0); Blood Urea Nitrogen 13 mg/dL (9-16); Calcium 8.9 mg/dL (8.4-10.2); Carbon Dioxide 29 mmol/L (22-29); Chloride 102 mmol/L (96-108); Creatinine Clr Calc Pharmacy 86.2; Estimated Glomerular Filt Rate > 60; Glucose Random 67 mg/dL (60-115); Sodium 137 mmol/L (135-145); Total Protein 7.1 g/dL (6.5-8.0)
== END 2020-02-17 22:24 | disposition home or self-care (01) ==
PROVIDERS: Emergency Provider Internal Medicine; PCP Internal Medicine
DX: R10.30 Lower abdominal pain, unspecified (principal); K59.00 Constipation, unspecified; Z79.899 Other long term (current) drug therapy
CPT/HCPCS: 36415; 80053; 81001; 81025; 85025; 99283

== ENCOUNTER → 2020-02-26 15:47 | Outpatient (BNVA) | payer OTHER, SELFPAY | PROVIDERS: PCP Internal Medicine; Referring Provider Internal Medicine; Visit Provider Nurse Practitioner | DX: K59.04 Chronic idiopathic constipation (principal); R10.13 Epigastric pain; M79.7 Fibromyalgia; Z87.891 Personal history of nicotine dependence | CPT/HCPCS: 99212 ==

== ENCOUNTER 2020-03-10 14:33 | Emergency (ER) | payer OTHER, SELFPAY ==
[2020-03-10 15:00] VITALS: BP 107/74; PULSE 91; RESP 18; TEMP 37.3; O2SAT 98; BMI 28.3
--- NOTE | 2020-03-10 15:34 | CT_ITS ---
EXAMINATION: CT ABDOMEN AND PELVIS WITH CONTRAST CLINICAL INFORMATION: Right lower quadrant abdominal pain COMPARISON: Multiple prior exams. Most recent CT scan abdomen pelvis 02/04/2020 TECHNIQUE: Multidetector volumetric images were obtained from the superior aspect of the liver through the pubic symphysis following administration 85 mL of Omnipaque 350 intravenous contrast. Sagittal and coronal reformatted images were obtained on the technologist's workstation. Oral contrast: No This CT examination was performed using dose optimization techniques as appropriate, variously including the following: *Automated exposure control *Adjustment of mA and/or kV according to patient size (this includes techniques or standardized protocols for targeted exams where dose is matched to indication/reason for exam; i.e. extremities or head) *Use of iterative reconstruction technique DLP: 594 mGy-cm FINDINGS: LUNG BASES: The visualized lung bases are unremarkable. LIVER, GALLBLADDER, AND BILIARY TREE: The liver is normal in size, shape, and attenuation. No focal hepatic lesion or biliary ductal dilatation is present. Small hypodensity in the mid right lobe of liver unchanged since prior studies consistent with small hepatic cyst. There is a stable hemangioma the anterior left lobe of which liver measuring about 1.4 cm of size. The gallbladder is unremarkable with no evidence of radiopaque gallstones, gallbladder wall thickening, or obvious pericholecystic inflammatory changes. PANCREAS: Unremarkable. SPLEEN: Unremarkable. ADRENAL GLANDS: Unremarkable. KIDNEYS AND URETERS: The kidneys are normal in size, shape, and attenuation. No hydronephrosis, hydroureter, or calculi seen. No perinephric stranding. BLADDER: Unremarkable. GASTROINTESTINAL TRACT: There is no acute abnormality. There is no bowel wall thickening /edema. There is no bowel obstruction. There is a moderate volume of stool in the colon. The appendix is nonvisualized . There is no inflammation the mesentery The small bowel loops are unremarkable. The stomach is normal. There is no hiatal hernia. ABDOMINAL WALL: No significant hernia is appreciated. LYMPH NODES: Normal. VASCULAR: Unremarkable. PELVIC VISCERA: Uterus is retroverted. IUD in the endometrial cavity. There is no adnexal abnormality. OSSEOUS STRUCTURES: Unremarkable. CT/CT abdomen pelvis w con IMPRESSION: There is no acute abnormality the abdomen or the pelvis. The appendix is not visualized. There is no inflammation the mesentery. There is no acute abnormality of the bowel.
[2020-03-10] MEDS: 0.9 % Sodium Chloride 1,000 ML 999 ML IV (15:48)
[2020-03-10] MEDS: Morphine Sulfate 4 MG/ML CARTRIDGE IVPUSH (15:52)
[2020-03-10] MEDS: ondansetron HCL 4 MG/2 ML VIAL IVPUSH (15:52)
[2020-03-10 15:53] VITALS: BP 112/72; PULSE 72; RESP 17; O2SAT 100
[2020-03-10 15:54] LABS: MANUAL DIFF FLAG NO
[2020-03-10 15:57] LABS: Basophils Percent Auto 0.3 % (0-2); Eosinophils Percent Auto 0.5 % (0-4); Glucose Urine UA NEG (NEG); Hematocrit 41.5 % (37-47); Imm Gran Abs Auto 0.01 X10*3/uL (0.00-0.03); Imm Gran Pct Auto 0.1 % (0.0-0.4); Leukocyte Esterase Urine NEG (NEG); Lymphocytes Absolute Auto 2.8 X10*3/uL (1.2-4.9); Lymphocytes Percent Auto 38.6 % (20-40); Mean Corpuscular HGB Conc 33.7 g/dl (31.0-35.0); Mean Corpuscular Hemoglobin 31.5 pg (27.0-33.0); Mean Corpuscular Volume 93.3 fL (80-98); Mean Platelet Volume 9.6 fL (9.4-12.3); Monocytes Absolute Auto 0.5 X10*3/uL (0.1-1.2); Monocytes Percent Auto 6.9 % (2-11); Neutrophils Absolute Auto 3.9 X10*3/uL (2.0-8.3); Neutrophils Percent Auto 53.6 % (45-73); Nitrite Urine NEG (NEG); PH 7.5 (5.0-8.0); Platelet Count 321 X10*3/uL (160-400); Red Blood Count 4.45 X10*6/uL (4.20-5.50); Red Cell Distribution Width 11.3 % (11.0-16.0); Specific Gravity - Urine 1.015 (1.005-1.025); Urine Blood TRACE (NEG); Urine Ketones NEG (NEG); Urine Protein NEG (NEG-TRACE); White Blood Count 7.3 X10*3/uL (4.8-10.8)
[2020-03-10 16:00] LABS: Appearance Urine CLEAR; Color Urine YELLOW; UPreg QC Valid YES; Urine Pregnancy NEGATIVE (NEGATIVE)
[2020-03-10 16:18] LABS: Bacteria Urine TRACE /LPF; RBC Urine 0 /HPF (0); Squamous Epithelial Cell Urine 1+ /LPF; WBC Urine 0 /HPF (0-4)
[2020-03-10 16:20] VITALS: BP 113/73; PULSE 78; RESP 17; TEMP 36.9; O2SAT 100
[2020-03-10] MEDS: Ketorolac Tromethamine 30 MG/ML VIAL IVPUSH (16:28)
[2020-03-10 16:39] LABS: Alanine Aminotransferase 13 U/L (0-31); Albumin Level 4.3 g/dL (3.5-5.0); Alkaline Phosphatase 68 U/L (39-117); Anion Gap 10 (12-20); Aspartate Amino Transferase 18 U/L (5-31); Bilirubin Total 0.5 mg/dL (0.0-1.0); Blood Urea Nitrogen 7 mg/dL (9-16); Calcium 9.2 mg/dL (8.4-10.2); Carbon Dioxide 28 mmol/L (22-29); Chloride 103 mmol/L (96-108); Estimated Glomerular Filt Rate > 60; Glucose Random 88 mg/dL (60-115); Potassium 4.1 mmol/l (3.3-5.1); Sodium 137 mmol/L (135-145)
[2020-03-10] MEDS: iohexoL 350 MG/ML 100 ML INFUS..BTL IV (17:01)
--- NOTE | 2020-03-10 17:46 | US_ITS ---
EXAMINATION: PELVIC ULTRASOUND CLINICAL INFORMATION: Pelvic pain with question of torsion COMPARISON: CT abdomen pelvis earlier today TECHNIQUE: Both transabdominal endovaginal scanning was performed. Spectral Doppler imaging was also utilized. FINDINGS: Retroverted retroflexed uterus is present measuring 9.5 x 3.4 x 6.2 cm. Endometrial thickness is 0.4 cm. An IUD appears in good position within the endometrial cavity. Right ovary measures 3.7 x 1.7 x 1.9 cm for a volume of 6.3 mL and contains a corpus luteal cyst measuring 2.0 x 0.9 x 1.2 cm. Left ovary measures 3.2 x 1.9 x 1.4 cm for a volume of 4.5 mL and appears normal. A small amount of free fluid is present in the cul-de-sac. Doppler study: Both ovaries demonstrate normal arterial and venous Doppler signal. There is no evidence of ovarian torsion. US/US pelvic complete IMPRESSION: An IUD is present in good position within the uterus. A small amount of free pelvic fluid is seen. No evidence of ovarian torsion.
--- NOTE | 2020-03-10 17:46 | US_ITS ---
EXAMINATION: PELVIC ULTRASOUND CLINICAL INFORMATION: Pelvic pain with question of torsion COMPARISON: CT abdomen pelvis earlier today TECHNIQUE: Both transabdominal endovaginal scanning was performed. Spectral Doppler imaging was also utilized. FINDINGS: Retroverted retroflexed uterus is present measuring 9.5 x 3.4 x 6.2 cm. Endometrial thickness is 0.4 cm. An IUD appears in good position within the endometrial cavity. Right ovary measures 3.7 x 1.7 x 1.9 cm for a volume of 6.3 mL and contains a corpus luteal cyst measuring 2.0 x 0.9 x 1.2 cm. Left ovary measures 3.2 x 1.9 x 1.4 cm for a volume of 4.5 mL and appears normal. A small amount of free fluid is present in the cul-de-sac. Doppler study: Both ovaries demonstrate normal arterial and venous Doppler signal. There is no evidence of ovarian torsion. US/US pelvic ovarian doppler IMPRESSION: An IUD is present in good position within the uterus. A small amount of free pelvic fluid is seen. No evidence of ovarian torsion.
[2020-03-10] MEDS: Acetaminophen 325 MG TABLET 975 MG PO (17:52)
--- NOTE | 2020-03-10 18:00 | US_ITS ---
EXAMINATION: PELVIC ULTRASOUND CLINICAL INFORMATION: Pelvic pain with question of torsion COMPARISON: CT abdomen pelvis earlier today TECHNIQUE: Both transabdominal endovaginal scanning was performed. Spectral Doppler imaging was also utilized. FINDINGS: Retroverted retroflexed uterus is present measuring 9.5 x 3.4 x 6.2 cm. Endometrial thickness is 0.4 cm. An IUD appears in good position within the endometrial cavity. Right ovary measures 3.7 x 1.7 x 1.9 cm for a volume of 6.3 mL and contains a corpus luteal cyst measuring 2.0 x 0.9 x 1.2 cm. Left ovary measures 3.2 x 1.9 x 1.4 cm for a volume of 4.5 mL and appears normal. A small amount of free fluid is present in the cul-de-sac. Doppler study: Both ovaries demonstrate normal arterial and venous Doppler signal. There is no evidence of ovarian torsion. US/US transvaginal IMPRESSION: An IUD is present in good position within the uterus. A small amount of free pelvic fluid is seen. No evidence of ovarian torsion.
--- NOTE | 2020-03-10 19:07 | ED_ITS ---
HPI - Abdominal Pain General Chief Complaint: Abdominal Pain Stated Complaint: abd pain Time Seen by Provider: 03/10/20 15:33 Source: patient Mode of arrival: ambulatory Limitations: no limitations History of Present Illness HPI narrative: 31-year-old female with history of anxiety presenting with complaint of states she was seen this morning at her primary care doctor for acute right lower quadrant pain and since the emergency room for rule out appendicitis. States she woke up with right lower quadrant abdominal pain this morning progressively getting worse with associated nausea but no vomiting or diarrhea. Denies any fever or chills. No recent sick contacts. No URI symptoms. MD elicited complaint: abdominal pain Onset (ago): hour(s) Location: RLQ Severity: moderate Quality: cramping and stabbing Migration to: no migration Exacerbating factors: nothing Associated symptoms: denies other symptoms Treatments prior to arrival: other Related Data Home Medications Medication Instructions Recorded Confirmed albuterol sulfate 90 mcg/actuation 2 puff PO Q2H PRN 01/16/20 aerosol inhaler bupropion HCl 150 mg 24 hr tablet, 150 mg PO DAILY 01/16/20 extended release dicyclomine 10 mg capsule [id number] mg PO QID PRN 01/16/20 duloxetine 60 mg capsule,delayed 60 mg PO DAILY 01/16/20 release famotidine 40 mg tablet 40 mg PO BEDTIME 01/16/20 loratadine 10 mg tablet 10 mg PO DAILY 01/16/20 tamsulosin 0.4 mg capsule 0.4 mg PO DAILY 01/16/20 diphenhydramine HCl 25 mg tablet 25 mg PO BEDTIME 02/26/20 Previous Rx's Medication Instructions Recorded ondansetron 4 mg disintegrating 4 mg PO Q6H PRN #30 tab 01/16/20 tablet linaclotide 145 mcg capsule 145 mcg PO QAM #30 cap 02/26/20 Allergies Allergy/AdvReac Type Severity Reaction Status Date / Time Penicillins Allergy Mild rash Verified 02/26/20 15:55 Review of Systems Review of Systems Constitutional: No Weight loss, No Fever, No Chills, No Night Sweats, No Fatigue, No Malaise ENT/Mouth: No Hearing loss, No Ear Pain, No Nasal Congestion, No Sinus Pain, No Hoarseness, No sore throat, No Rhinorrhea, No Swallowing Difficulty Eyes: No Eye Pain, No Swelling, No Redness, No Foreign Body, No Discharge, No Vision Changes Cardiovascular: No Chest Pain, No SOB, No Dyspnea on Exertion, No Orthopnea, No Edema, No Palpitations Respiratory: No Cough, No Sputum, No Wheezing, No Smoke Exposure, No Dyspnea Gastrointestinal: + Nausea, No Vomiting, No Diarrhea, No Constipation, + abdominal Pain, No Hematochezia, No Melena Genitourinary: no irregular bleeding, No Dysuria, No Urinary Frequency, No Hematuria, No Urinary Incontinence, No Urgency, No Flank Pain, No Urinary Flow Changes, No Hesitancy Musculoskeletal: No joint pain, No Myalgias, No Joint Swelling Skin: No Skin Lesions, No rash Neuro: No Weakness, No Numbness, No Paresthesias, No Loss of Consciousness, No Dizziness, No Headache Psych: No Anxiety/Panic, No Depression, No SI/HI/AH/VH, No Social Issues Heme/Lymph: No Bruising, No Bleeding,No Lymphadenopathy Endocrine: No Polyuria, No Polydipsia, No Temperature Intolerance Physical Exam Vital Signs: Vital Signs: Last Vital Signs Temp 98.7 F 03/10/20 19:21 Pulse 70 03/10/20 19:21 Resp 16 03/10/20 19:21 BP 102/69 03/10/20 19:21 Pulse Ox 100 03/10/20 19:21 Body Mass Index 28.3 Reviewed Const: General: cooperative and healthy appearing; No acute distress or intoxicated appearing Nutritional Appearance: average body habitus Orientation/consciousness: patient oriented x3 HENMT: Head: Yes normal to inspection Ears: hearing grossly normal bilaterally Eyes: General: appearance normal, both eyes and all related structures Visual Marie: normal visual marie by confrontation Neck: Neck: Yes normal visual inspection and No tender Thyroid: Thyroid no rmal Chest: Chest palpation & inspection: normal inspection of the chest Resp: Effort & Inspection: normal respiratory effort Auscultation: clear to auscultation bilaterally Cardio: Jugular venous distension: no JVD Rhythm: regular rhythm GI: Inspection: Yes normal to inspection Palpation (GI): Tenderness to palpation present (GI) and Guarding due to palpation present (GI) in the RLQ Percussion: Yes normal to percussion Auscultation: normal bowel sounds : General: Yes no CVA tenderness Back/Spine/Pelvis: Back: no CVA tenderness Skin: General skin exam: no rashes or lesions noted Neuro: General: patient oriented x3 Extrem: General: Yes normal to inspection Course Course Course Narrative: CT scan of the abdomen pelvis with IV contrast showed no acute abnormality. She has for additional pain medications subsequently ultrasound of the pelvis was done rule out cyst versus torsion and this was also within normal limits. At this point patient has had serial examinations as well as studies all reassuring unclear etiology of her pain though I do not suspect this to be any acute etiology. No evidence of acute abdomen. No peritonitis. She is hemodynamically stable. Will discharge home with clear precaution return follow-up instructions with advice to follow up with her smallpox hospital doctor in return instructions as well as follow-up with GI. Patient did eat and drink in the ED. He got up to go the bathroom without any evidence of abdominal guarding. MDM - Abdominal Pain MDM Narrative Medical decision making narrative: labs overall reassuring. No leukocytosis risk and benefits of repeating the CT scan reviewed including differential of having renal calculi, appendicitis versus ovarian etiology she would like to go ahead and proceed with a CT scan. Differential Diagnosis Differential diagnosis: Likely abdominal pain, acute appendicitis, calculus of kidney, ovarian cyst and renal colic; Unlikely aortic dissection, bowel perforation, constipation, diverticulitis, endometriosis, gastroenteritis, gastritis, mesenteric ischemia, pancreatitis, peptic ulcer disease and small bowel obstruction Differential diagnosis narrative:: Medical Records Attestation: I reviewed the patient's medical records. Medical records narrative: PATIENT WAS HERE PREVIOUSLY IN JANUARY AND THEN IN BEGINNING OF FEBRUARY FOR WHICH SHE REPORTS EPIGASTRIC PAIN THIS PAIN IS DIFFERENT. THESE RECORDS REVIEWED INCLUDING ULTRASOUND OF THE ABDOMEN WELL ct ABD/ PELVIC Lab Data Result diagrams: 03/10/20 15:46 03/10/20 15:46 Labs: Lab Results 03/10/20 03/10/20 03/10/20 Range/Units 15:46 15:46 15:46 WBC 7.3 (4.8-10.8) X10*3/uL RBC 4.45 (4.20-5.50) X10*6/uL Hgb 14.0 (12.0-16.0) g/dl Hct 41.5 (37-47) % MCV 93.3 (80-98) fL MCH 31.5 (27.0-33.0) pg MCHC 33.7 (31.0-35.0) g/dl RDW 11.3 (11.0-16.0) % Plt Count 321 (160-400) X10*3/uL MPV 9.6 (9.4-12.3) fL Immature Gran % (Auto) 0.1 (0.0-0.4) % Neut % (Auto) 53.6 (45-73) % Lymph % (Auto) 38.6 (20-40) % [place] % (Auto) 6.9 (2-11) % Eos % (Auto) 0.5 (0-4) % Baso % (Auto) 0.3 (0-2) % Lymph # (Auto) 2.8 (1.2-4.9) X10*3/uL [place] # (Auto) 0.5 (0.1-1.2) X10*3/uL Eos # (Auto) 0.0 (0.0-0.4) X10*3/uL Baso # (Auto) 0.0 (0.0-0.2) X10*3/uL Abs Immat Gran (auto) 0.01 (0.00-0.03) X10*3/uL Absolute Neuts (auto) 3.9 (2.0-8.3) X10*3/uL Absolute Nucleated RBC 0.000 (0.0-0.012) X10*3/uL Nucleated RBC % (auto) 0.0 (0.0-0.2) /100WBC Sodium 137 (135-145) mmol/L Potassium 4.1 (3.3-5.1) mmol/l Chloride 103 (96-108) mmol/L Carbon Dioxide 28 (22-29) mmol/L Anion Gap 10 L (12-20) BUN 7 L (9-16) mg/dL Creatinine 0.77 (0.5-1.4) mg/dL Estim Creat Clear Calc 91.0 Estimated GFR > 60 Random Glucose 88 (60-115) mg/dL Calcium 9.2 (8.4-10.2) mg/dL Total Bilirubin 0.5 (0.0-1.0) mg/dL AST 18 (5-31) U/L ALT 13 (0-31) U/L Alkaline Phosphatase 68 (39-117) U/L Total Protein 7.0 (6.5-8.0) g/dL Albumin 4.3 (3.5-5.0) g/dL Urine Color YELLOW Urine Appearance CLEAR Urine pH 7.5 (5.0-8.0) Ur Specific [place] 1.015 (1.005-1.025) Urine Protein NEG (NEG-TRACE) MG/DL Urine Glucose (UA) NEG (NEG) MG/DL Urine Ketones NEG (NEG) MG/DL Urine Blood TRACE (NEG) Urine Nitrite NEG (NEG) Ur Leukocyte Esterase NEG (NEG) Urine RBC 0 (0) /HPF Urine WBC 0 (0-4) /HPF Ur Squamous Epith Cells 1+ /LPF Urine Bacteria TRACE /LPF Urine Test NEGATIVE (NEGATIVE) Imaging Data CT scan - abdomen: Radiologist's impression: [place] [address] CT Scan Report Signed Patient: Jennifer Landrum#: [id number] : 1980Acct:[id number] Age/Sex: 39 / FADM Date: 03/10/20 Loc: HO.ED Attending Dr: Ordering Physician: Jasen Mccelllan NP Date of Service: 03/10/20 Procedure(s): CT abdomen pelvis w con Accession Number(s): [id number] cc: Jasen Mcclellan NP~ EXAMINATION: CT ABDOMEN AND PELVIS WITH CONTRAST CLINICAL INFORMATION: Right lower quadrant abdominal pain COMPARISON: Multiple prior exams. Most recent CT scan abdomen pelvis 02/04/2020 TECHNIQUE: Multidetector volumetric images were obtained from the superior aspect of the liver through the pubic symphysis following administration 85 mL of Omnipaque 350 intravenous contrast. Sagittal and coronal reformatted images were obtained on the technologist's workstation. Oral contrast: No This CT examination was performed using dose optimization techniques as appropriate, variously including the following: *Automated exposure control *Adjustment of mA and/or kV according to patient size (this includes techniques or standardized protocols for targeted exams where dose is matched to indication/reason for exam; i.e. extremities or head) *Use of iterative reconstruction technique DLP: 594 mGy-cm FINDINGS: LUNG BASES: The visualized lung bases are unremarkable. LIVER, GALLBLADDER, AND BILIARY TREE: The liver is normal in size, shape, and attenuation. No focal hepatic lesion or biliary ductal dilatation is present. Small hypodensity in the mid right lobe of liver unchanged since prior studies consistent with small hepatic cyst. There is a stable hemangioma the anterior left lobe of which liver measuring about 1.4 cm of size. The gallbladder is unremarkable with no evidence of radiopaque gallstones, gallbladder wall thickening, or obvious pericholecystic inflammatory changes. PANCREAS: Unremarkable. SPLEEN: Unremarkable. ADRENAL GLANDS: Unremarkable. KIDNEYS AND URETERS: The kidneys are normal in size, shape, and attenuation. No hydronephrosis, hydroureter, or calculi seen. No perinephric stranding. BLADDER: Unremarkable. GASTROINTESTINAL TRACT: There is no acute abnormality. There is no bowel wall thickening /edema. There is no bowel obstruction. There is a moderate volume of stool in the colon. The appendix is nonvisualized . There is no inflammation the mesentery The small bowel loops are unremarkable. The stomach is normal. There is no hiatal hernia. ABDOMINAL WALL: No significant hernia is appreciated. LYMPH NODES: Normal. VASCULAR: Unremarkable. PELVIC VISCERA: Uterus is retroverted. IUD in the endometrial cavity. There is no adnexal abnormality. OSSEOUS STRUCTURES: Unremarkable. CT/CT abdomen pelvis w con IMPRESSION: There is no acute abnormality the abdomen or the pelvis. The appendix is not visualized. There is no inflammation the mesentery. There is no acute abnormality of the bowel. Dictated By:MAURILIO WYMAN MD Signed By:<Electronically signed by MAURILIO WYMAN MD in OV>03/10/20 1722 DD/ 1534 TD/TT: Equine Manager: CHRYSTAL Pelvis ovarian ultrasound: Radiologist's impression: [address] [address] Ultrasound Report Signed Patient: Jennifer Landrum#: [id number] : 1980Acct:[id number] Age/Sex: 39 / FADM Date: 03/10/20 Loc: HO.ED Attending Dr: Ordering Physician: Jasen Mcclellan NP Date of Service: 03/10/20 Procedure(s): US pelvic ovarian doppler Accession Number(s): [id number] cc: Jasen Mcclellan NP~ EXAMINATION: PELVIC ULTRASOUND CLINICAL INFORMATION: Pelvic pain with question of torsion COMPARISON: CT abdomen pelvis earlier today TECHNIQUE: Both transabdominal endovaginal scanning was performed. Spectral Doppler imaging was also utilized. FINDINGS: Retroverted retroflexed uterus is present measuring 9.5 x 3.4 x 6.2 cm. Endometrial thickness is 0.4 cm. An IUD appears in good position within the endometrial cavity. Right ovary measures 3.7 x 1.7 x 1.9 cm for a volume of 6.3 mL and contains a corpus luteal cyst measuring 2.0 x 0.9 x 1.2 cm. Left ovary measures 3.2 x 1.9 x 1.4 cm for a volume of 4.5 mL and appears normal. A small amount of free fluid is present in the cul-de-sac. Doppler study: Both ovaries demonstrate normal arterial and venous Doppler signal. There is no evidence of ovarian torsion. US/US pelvic ovarian doppler IMPRESSION: An IUD is present in good position within the uterus. A small amount of free pelvic fluid is seen. No evidence of ovarian torsion. Dictated By:ÁNGELA LEACH MD Signed By:<Electronically signed by ÁNGELA LEACH MD in OV>03/10/20 1842 DD/ 1746 TD/TT: Equine Manager: SS Discharge Plan Discharge Clinical Impression: Abdominal pain Patient Disposition: Home, Self-Care Instructions: Abdominal Pain (ED) Additional Instructions: your CT scan of the abdomen did not show any acute infection or evidence of appendicitis today Your blood work was overall stable The ultrasound did not show any ovarian cyst or ovarian torsion I do not have a clear cause of your pain today I would like for to follow up with her primary care doctor and if abdominal pain continues please 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 Return to emergency if any concerns or worsening symptoms Thank you Prescriptions: No Action bupropion HCl 150 mg tablet extended release 24 hr 150 mg PO DAILY RF: 0 duloxetine 60 mg capsule,delayed release(DR/EC) 60 mg PO DAILY RF: 0 dicyclomine 10 mg capsule [id number] mg PO QID PRN (Reason: cramps) RF: 0 tamsulosin 0.4 mg capsule 0.4 mg PO DAILY RF: 0 albuterol sulfate 90 mcg/actuation HFA aerosol inhaler 2 puff PO Q2H PRNRF: 0 loratadine 10 mg tablet 10 mg PO DAILY RF: 0 famotidine 40 mg tablet 40 mg PO BEDTIME RF: 0 ondansetron 4 mg tablet,disintegrating 4 mg PO Q6H PRN (Reason: nausea and vomiting) Qty: 30 RF: 0 Linzess 145 mcg capsule 145 mcg PO QAM Qty: 30 RF: 3 Referrals: Monalisa Urban MD [Primary Care Provider] - 1 week [facility] Past Medical History Medical History Fibromyalgia Surgical History Hx of tonsillectomy Family History Family History (Updated 02/26/20 @ 16:04 by BOB Moy) Family/Other No problems noted. Social History Social History (Updated 02/26/20 @ 16:05 by BOB Moy) Alcohol intake: current Alcohol intake frequency: holidays/special occasions only Smoking Status: Never smoker Advance Directives: No Advance Directives Information Provided: Yes
[2020-03-10 19:21] VITALS: BP 102/69; PULSE 70; RESP 16; TEMP 37.1; O2SAT 100
== END 2020-03-10 20:45 | disposition home or self-care (01) ==
PROVIDERS: Nurse Practitioner Primary Care; Emergency Provider Emergency Medicine; PCP Internal Medicine
DX: R10.31 Right lower quadrant pain (principal); R10.2 Pelvic and perineal pain
CPT/HCPCS: 36415; 74177; 76830; 76856; 80053; 81001; 81025; 85025; 93975; 96361; 96374; 96375; 99284; J1885; J2270; J2405; Q9967

== ENCOUNTER → 2020-03-18 14:53 | Outpatient (BNVA) | payer OTHER, SELFPAY | PROVIDERS: PCP Internal Medicine; Visit Provider Nurse Practitioner | DX: Z76.89 Persons encountering health services in other specified circumstances (principal) ==

== ENCOUNTER 2020-10-05 17:37 | Emergency (ER) | payer OTHER, SELFPAY ==
--- NOTE | ~2020-10-05 | CT_ITS ---
EXAMINATION: CT ABDOMEN AND PELVIS WITHOUT CONTRAST CLINICAL INFORMATION: Right side abdomen pain COMPARISON: Portions of a previous study 03/10/20 TECHNIQUE: Multidetector volumetric imaging was performed from the superior aspect of the liver through the pubic symphysis. Sagittal and coronal reformatted images were obtained on the technologist's workstation. This CT examination was performed using dose optimization techniques as appropriate, variously including the following: *Automated exposure control *Adjustment of mA and/or kV according to patient size (this includes techniques or standardized protocols for targeted exams where dose is matched to indication/reason for exam; i.e. extremities or head) *Use of iterative reconstruction technique DLP: 519 mGy-cm FINDINGS: Digital Traffic Enumerator: No opaque calculus. Gas and enteric material throughout large and small bowel to level the rectum. LUNG BASES: There are a few nonspecific reticular opacities in the visualized lung bases. LIVER, GALLBLADDER, AND BILIARY TREE: There is a circumscribed round low attenuating lesion in hepatic segment 6 which likely represents a cyst and is unchanged. There is a subtle low attenuating lesion abutting the ventral aspect at the junction of hepatic segment 2 and 3. Previously this had peripheral enhancement suggesting hemangioma. There is no opaque gallstone. There is no biliary dilation. PANCREAS: Limited assessment without a definite abnormality. SPLEEN: Normal ADRENAL GLANDS: No suspicious abnormality KIDNEYS AND URETERS: There is visualization of the intrarenal collecting system and proximal ureter on the right. The mid and distal ureter do not appear dilated and there is no definite opaque urinary calculus. There is no perinephric stranding. No suspicious renal mass. BLADDER: Within normal limits GASTROINTESTINAL TRACT: Large amount of fecal residue throughout the colon. No definite CT evidence of acute appendicitis. No evidence of small bowel obstruction. No suspicious abnormality the stomach. There are a few nonspecific mesenteric lymph nodes. ABDOMINAL WALL: No significant hernia is appreciated. LYMPH NODES: No retroperitoneal adenopathy. No upper abdominal fluid. Trace amount of nonspecific free pelvic fluid. There was a similar amount of pelvic fluid on 03/10/20 VASCULAR: No abdominal aortic aneurysm PELVIC VISCERA: The uterus is retroverted and retroflexed. Small amount of gas near the vaginal fornices. There is an IUD present which appears contained within the uterus. OSSEOUS STRUCTURES: No suspicious abnormality. CT/CT abdomen pelvis wo con IMPRESSION: No etiology for right-sided pain demonstrated. Specifically no evidence of opaque urinary calculus. No bowel obstruction.
[2020-10-05 17:50] VITALS: BP 118/77; PULSE 93; RESP 18; TEMP 37.3; O2SAT 99; BMI 27.8
--- NOTE | 2020-10-05 18:31 | ED.ABDPAIN ---
HPI - Abdominal Pain General Chief Complaint: Abdominal Pain Stated Complaint: Abd pain Time Seen by Provider: 10/05/20 18:29 Source: patient Mode of arrival: ambulatory Limitations: no limitations History of Present Illness HPI narrative: 39-year-old female came in to the emergency department for evaluation of nausea, vomiting, abdominal pain. Symptoms started since yesterday, no history of suspicious bad food, patient just traveled from [place] yesterday, no sick contact, symptoms is worsening by food, nothing made symptoms better, no fever, no chills. Never had the symptoms in the past, patient was evaluated at walk-in Urgent care clinic. Related Data Home Medications Medication Instructions Recorded Confirmed albuterol sulfate 90 mcg/actuation 2 puff PO Q2H PRN 01/16/20 04/07/20 aerosol inhaler duloxetine 60 mg capsule,delayed 60 mg PO DAILY 01/16/20 04/07/20 release loratadine 10 mg tablet 10 mg PO DAILY 01/16/20 04/07/20 diphenhydramine HCl 25 mg tablet 25 mg PO BEDTIME 02/26/20 04/07/20 lorazepam 0.5 mg tablet 0.5 mg PO DAILY PRN 04/07/20 04/07/20 Previous Rx's Medication Instructions Recorded linaclotide 145 mcg capsule 145 mcg PO QAM #30 cap 02/26/20 dicyclomine 20 mg tablet 20 mg PO QID 30 Days #120 tab 03/18/20 lactulose 10 gram/15 mL oral 10 g PO BEDTIME PRN 30 Days #237 ml 04/07/20 solution pantoprazole 40 mg tablet,delayed 40 mg PO DAILY 90 Days #90 tab 04/07/20 release bupropion HCl 150 mg 24 hr tablet, 150 mg PO DAILY 90 Days #90 tab 08/25/20 extended release terbinafine HCl 250 mg tablet 250 mg PO DAILY 90 Days #90 tab 08/25/20 omeprazole magnesium [Prilosec OTC] 20 mg PO BID #60 tab 10/05/20 ondansetron HCl [Zofran] 4 mg PO Q8H PRN #10 tab 10/05/20 Allergies Allergy/AdvReac Type Severity Reaction Status Date / Time Penicillins Allergy Mild rash Verified 04/07/20 11:40 Review of Systems Review of Systems all other systems are reviewed and are negative Constitutional: Reports as per HPI and Reports no additional constitutional complaints Eyes: Reports as per HPI and Reports no additional eye complaints Reports system reviewed and no additional complaints, except as documented Cardiovascular: Reports as per HPI and Reports no additional cardiovascular complaints Respiratory: Reports as per HPI and Reports no additional respiratory complaints Gastrointestinal: Reports as per HPI and Reports no additional gastrointestinal complaints Genitourinary: Reports no additional female genitourinary complaints Musculoskeletal: Reports no additional musculoskeletal complaints Skin/Breast: Reports system reviewed and no additional complaints, except as docu Psychiatric: Reports no additional psychiatric complaints Endocrine: Reports no additional endocrine complaints Hematologic/Lymphatic: Reports no additional hematologic/lymphatic complaints Allergic/Immunologic: Reports no additional allergic/immunologic complaints Reports system reviewed and no additional complaints, except as documented and Reports Abnormal speech present Physical Exam Vital Signs: Vital Signs: Last Vital Signs Temp 98.9 F 10/05/20 19:15 Pulse 75 10/05/20 20:00 Resp 16 10/05/20 20:00 BP 100/65 10/05/20 20:00 Pulse Ox 99 10/05/20 20:00 Body Mass Index 27.8 vital signs have been reviewed as appeared to be correct. Blood pressure normal. Heart rate normal. Respiration rate normal. Temperature normal. Oxygen saturation normal. Appearance: Alert. Oriented X3. No acute distress. Head: Normal external exam. Normocephalic. Atraumatic. No Mg signs noted. No raccoon eyes noted Eyes: PERRLA. EOMI. Conjunctiva and sclera normal. Eyelids normal. ENT: TM's Normal. Pharynx normal. Uvula midline. Moist mucous membranes. No trismus noted. No drooling noted. No muffled voice noted. Neck: Normal inspection. Neck supple. FROM. No adenopathy. Thyroid Normal. No meningeal signs. No neck mass noted. CVS: Normal heart rate and rhythm. Heart sound normal. No murmurs noted. Pulses normal throughout. Respiratory: No respiratory distress. Painless inspiration. Breath sounds normal. No wheezes/rales/rhonchi noted. Chest nontender. No accessory muscle usage noted or decreased air movement noted. Abdomen: Soft, lower abdominal tenderness, no rebound tenderness, no guarding. Bowel sounds normal in all 4 quadrants. No distention noted. No organomegaly noted. No visible injury noted. Back: No CVA tenderness. Full range of motion noted. Skin: Skin warm and dry. Normal skin color. Normal skin turgor. No rashes/lesions/lacerations noted. Extremities: No lower extremity edema. Extremities exhibit normal range of motion. Extremities nontender. Neuro: Oriented X 3. No motor deficit. No sensory deficit. Reflexes normal. Course Course Course Narrative: assessment and plan. 39-year-old female with nausea, vomiting, abdominal pain. Physical exam laboratory workup consistent with gastritis. Patient exam has improved, no nausea, no vomiting able to tolerate p.o. intake, slight epigastric abdominal pain and tenderness. Discharge the patient on Prilosec/Zofran and follow up with GI. MDM - Abdominal Pain Lab Data Attestation: I reviewed the patient's lab results. Result diagrams: 10/05/20 19:25 10/05/20 19:25 Labs: Lab Results 10/05/20 10/05/20 10/05/20 Range/Units 19:25 19:25 19:25 WBC 5.8 (4.8-10.8) X10*3/uL RBC 4.48 (4.20-5.50) X10*6/uL Hgb 14.0 (12.0-16.0) g/dl Hct 41.1 (37-47) % MCV 91.7 (80-98) fL MCH 31.3 (27.0-33.0) pg MCHC 34.1 (31.0-35.0) g/dl RDW 11.6 (11.0-16.0) % Plt Count 220 D (160-400) X10*3/uL MPV 9.6 (9.4-12.3) fL Immature Gran % (Auto) 0.2 (0.0-0.4) % Neut % (Auto) 64.1 (45-73) % Lymph % (Auto) 22.8 (20-40) % Hanson % (Auto) 12.5 H (2-11) % Eos % (Auto) 0.2 (0-4) % Baso % (Auto) 0.2 (0-2) % Lymph # (Auto) 1.3 (1.2-4.9) X10*3/uL Hanson # (Auto) 0.7 (0.1-1.2) X10*3/uL Eos # (Auto) 0.0 (0.0-0.4) X10*3/uL Baso # (Auto) 0.0 (0.0-0.2) X10*3/uL Abs Immat Gran (auto) 0.01 (0.00-0.03) X10*3/uL Absolute Neuts (auto) 3.7 (2.0-8.3) X10*3/uL Absolute Nucleated RBC 0.000 (0.0-0.012) X10*3/uL Nucleated RBC % (auto) 0.0 (0.0-0.2) /100WBC Sodium 137 (135-145) mmol/L Potassium 4.1 (3.3-5.1) mmol/L Chloride 104 (96-108) mmol/L Carbon Dioxide 23 (22-29) mmol/L Anion Gap 14 (12-20) BUN 10 (9-16) mg/dL Creatinine 0.84 (0.5-1.4) mg/dL Estim Creat Clear Calc 82.6 Estimated GFR > 60 Random Glucose 95 (60-115) mg/dL Calcium 8.8 (8.4-10.2) mg/dL Total Bilirubin 0.7 (0.0-1.0) mg/dL Direct Bilirubin 0.2 (0.0-0.5) mg/dL AST 13 (5-31) U/L ALT 9 (0-31) U/L Alkaline Phosphatase 61 (39-117) U/L Total Protein 6.4 L (6.5-8.0) g/dL Albumin 3.9 (3.5-5.0) g/dL Lipase 17 (8-78) U/L Urine Color YELLOW Urine Appearance CLEAR Urine pH 6.0 (5.0-8.0) Ur Specific [place] <= 1.005 (1.005-1.025) Urine Protein NEG (NEG-TRACE) MG/DL Urine Glucose (UA) NEG (NEG) MG/DL Urine Ketones 5 (NEG) MG/DL Urine Blood 2+ H (NEG) Urine Nitrite NEG (NEG) Ur Leukocyte Esterase NEG (NEG) Urine RBC 15-29 H (0) /HPF Urine WBC 0-2 (0-4) /HPF Ur Squamous Epith Cells 2+ /LPF Urine Bacteria TRACE /LPF Urine Mucus TRACE /LPF Urine Test (NEGATIVE) 10/05/20 Range/Units 19:25 WBC (4.8-10.8) X10*3/uL RBC (4.20-5.50) X10*6/uL Hgb (12.0-16.0) g/dl Hct (37-47) % MCV (80-98) fL MCH (27.0-33.0) pg MCHC (31.0-35.0) g/dl RDW (11.0-16.0) % Plt Count (160-400) X10*3/uL MPV (9.4-12.3) fL Immature Gran % (Auto) (0.0-0.4) % Neut % (Auto) (45-73) % Lymph % (Auto) (20-40) % Hanson % (Auto) (2-11) % Eos % (Auto) (0-4) % Baso % (Auto) (0-2) % Lymph # (Auto) (1.2-4.9) X10*3/uL [place] # (Auto) (0.1-1.2) X10*3/uL Eos # (Auto) (0.0-0.4) X10*3/uL Baso # (Auto) (0.0-0.2) X10*3/uL Abs Immat Gran (auto) (0.00-0.03) X10*3/uL Absolute Neuts (auto) (2.0-8.3) X10*3/uL Absolute Nucleated RBC (0.0-0.012) X10*3/uL Nucleated RBC % (auto) (0.0-0.2) /100WBC Sodium (135-145) mmol/L Potassium (3.3-5.1) mmol/L Chloride (96-108) mmol/L Carbon Dioxide (22-29) mmol/L Anion Gap (12-20) BUN (9-16) mg/dL Creatinine (0.5-1.4) mg/dL Estim Creat Clear Calc Estimated GFR Random Glucose (60-115) mg/dL Calcium (8.4-10.2) mg/dL Total Bilirubin (0.0-1.0) mg/dL Direct Bilirubin (0.0-0.5) mg/dL AST (5-31) U/L ALT (0-31) U/L Alkaline Phosphatase (39-117) U/L Total Protein (6.5-8.0) g/dL Albumin (3.5-5.0) g/dL Lipase (8-78) U/L Urine Color Urine Appearance Urine pH (5.0-8.0) Ur Specific [place] (1.005-1.025) Urine Protein (NEG-TRACE) MG/DL Urine Glucose (UA) (NEG) MG/DL Urine Ketones (NEG) MG/DL Urine Blood (NEG) Urine Nitrite (NEG) Ur Leukocyte Esterase (NEG) Urine RBC (0) /HPF Urine WBC (0-4) /HPF Ur Squamous Epith Cells /LPF Urine Bacteria /LPF Urine Mucus /LPF Urine Test NEGATIVE (NEGATIVE) Discharge Plan Discharge Clinical Impression: Gastritis Patient Disposition: Home, Self-Care Instructions: Gastritis (ED) Prescriptions: New ondansetron HCl [Zofran] 4 mg tablet 4 mg PO Q8H PRN (Reason: nausea and vomiting) Qty: 10 RF: 0 omeprazole magnesium [Prilosec OTC] 20 mg tablet,delayed release (DR/EC) 20 mg PO BID Qty: 60 RF: 0 No Action bupropion HCl 150 mg tablet extended release 24 hr 150 mg PO DAILY 90 Days Qty: 90 RF: 3 terbinafine HCl 250 mg tablet 250 mg PO DAILY 90 Days Qty: 90 RF: 0 lorazepam 0.5 mg tablet 0.5 mg PO DAILY PRNRF: 0 lactulose 10 gram/15 mL solution 10 g PO BEDTIME PRN (Reason: constipation) 30 Days Qty: 237 RF: 1 pantoprazole 40 mg tablet,delayed release (DR/EC) 40 mg PO DAILY 90 Days Qty: 90 RF: 1 duloxetine 60 mg capsule,delayed release(DR/EC) 60 mg PO DAILY RF: 0 albuterol sulfate 90 mcg/actuation HFA aerosol inhaler 2 puff PO Q2H PRNRF: 0 loratadine 10 mg tablet 10 mg PO DAILY RF: 0 diphenhydramine HCl [Benadryl Allergy] 25 mg tablet 25 mg PO BEDTIME RF: 0 Linzess 145 mcg capsule 145 mcg PO QAM Qty: 30 RF: 3 dicyclomine 20 mg tablet 20 mg PO QID 30 Days Qty: 120 RF: 3 Referrals: Felicia Velazquez MD [Physician] - 2 days [facility] Past Medical History Medical History Fibromyalgia Surgical History Hx of tonsillectomy Family History Family History Father Medical history unknown Mother Medical history unknown Maternal Grandmother Breast cancer Maternal Grandfather No problems noted. Paternal Grandmother No problems noted. Social History Social History Alcohol intake: current Alcohol intake frequency: holidays/special occasions only Advance Directives: No Advance Directives Information Provided: Yes Patient : No
[2020-10-05 19:15] VITALS: BP 107/68; PULSE 80; RESP 16; TEMP 37.2; O2SAT 98
[2020-10-05] MEDS: 0.9 % Sodium Chloride 1,000 ML 999 ML IVCONT (19:26)
[2020-10-05] MEDS: Famotidine/PF 20 MG/2 ML VIAL IVPUSH (19:29)
[2020-10-05] MEDS: Magnesium Hydrox/Alum Hydrox 30 ML ORAL.SUSP PO (19:29)
[2020-10-05] MEDS: ondansetron HCL 4 MG/2 ML VIAL IVPUSH (19:29)
[2020-10-05 19:31] LABS: Basophils Percent Auto 0.2 % (0-2); Eosinophils Percent Auto 0.2 % (0-4); Hematocrit 41.1 % (37-47); Imm Gran Abs Auto 0.01 X10*3/uL (0.00-0.03); Imm Gran Pct Auto 0.2 % (0.0-0.4); Lymphocytes Absolute Auto 1.3 X10*3/uL (1.2-4.9); Lymphocytes Percent Auto 22.8 % (20-40); MANUAL DIFF FLAG NO; Mean Corpuscular HGB Conc 34.1 g/dl (31.0-35.0); Mean Corpuscular Hemoglobin 31.3 pg (27.0-33.0); Mean Corpuscular Volume 91.7 fL (80-98); Mean Platelet Volume 9.6 fL (9.4-12.3); Monocytes Absolute Auto 0.7 X10*3/uL (0.1-1.2); Monocytes Percent Auto 12.5 % (2-11); Neutrophils Absolute Auto 3.7 X10*3/uL (2.0-8.3); Neutrophils Percent Auto 64.1 % (45-73); Platelet Count 220 X10*3/uL (160-400); Red Blood Count 4.48 X10*6/uL (4.20-5.50); Red Cell Distribution Width 11.6 % (11.0-16.0); White Blood Count 5.8 X10*3/uL (4.8-10.8)
[2020-10-05 19:34] LABS: UPreg QC Valid YES; Urine Pregnancy NEGATIVE (NEGATIVE)
[2020-10-05 19:35] LABS: Appearance Urine CLEAR; Color Urine YELLOW; Glucose Urine UA NEG (NEG); Leukocyte Esterase Urine NEG (NEG); Nitrite Urine NEG (NEG); Specific Gravity - Urine <= 1.005 (1.005-1.025); Urine Blood 2+ (NEG); Urine Ketones 5 MG/DL (NEG); Urine Protein NEG (NEG-TRACE)
[2020-10-05 19:39] LABS: Bacteria Urine TRACE /LPF; Mucus Urine TRACE /LPF; Squamous Epithelial Cell Urine 2+ /LPF; WBC Urine 0-2 /HPF (0-4)
[2020-10-05 19:57] LABS: Alanine Aminotransferase 9 U/L (0-31); Albumin Level 3.9 g/dL (3.5-5.0); Alkaline Phosphatase 61 U/L (39-117); Anion Gap 14 (12-20); Aspartate Amino Transferase 13 U/L (5-31); Bilirubin Direct 0.2 mg/dL (0.0-0.5); Bilirubin Total 0.7 mg/dL (0.0-1.0); Blood Urea Nitrogen 10 mg/dL (9-16); Calcium 8.8 mg/dL (8.4-10.2); Carbon Dioxide 23 mmol/L (22-29); Chloride 104 mmol/L (96-108); Creatinine Clr Calc Pharmacy 82.6; Estimated Glomerular Filt Rate > 60; Glucose Random 95 mg/dL (60-115); Lipase 17 U/L (8-78); Potassium 4.1 mmol/L (3.3-5.1); Sodium 137 mmol/L (135-145); Total Protein 6.4 g/dL (6.5-8.0)
[2020-10-05 20:00] VITALS: BP 100/65; PULSE 75; RESP 16; O2SAT 99
== END 2020-10-05 21:24 | disposition home or self-care (01) ==
PROVIDERS: Emergency Provider Emergency Medicine; PCP Internal Medicine
DX: K29.70 Gastritis, unspecified, without bleeding (principal); R10.30 Lower abdominal pain, unspecified
CPT/HCPCS: 36415; 74176; 80048; 80076; 81001; 81025; 83690; 85025; 96361; 96374; 96375; 99284; J2405

== ENCOUNTER 2020-10-14 10:40 | Outpatient (REF) | payer OTHER, SELFPAY ==
--- NOTE | ~2020-10-14 | FL_ITS ---
EXAMINATION: Upper GI air-contrast study CLINICAL INFORMATION: Epigastric pain COMPARISON: None TECHNIQUE: Routine upper GI contrast study was performed. FINDINGS: Following oral administration of thick barium and effervescent granules there is normal propagation bolus from the oral cavity through the pharynx, esophagus into stomach without any evidence of obstruction, narrowing or stricture. No intrinsic or extrinsic compression seen. On placing patient supine and prone lying, the course, caliber and peristalsis of the stomach, duodenal bulb and sweep is normal. The mucosal pattern of stomach and the duodenum is normal. No gastroesophageal reflux or hiatal hernia seen. FLUOROSCOPY TIME: 1.8 minutes DOSE AREA PRODUCT: 19.25 uGy-m2 (microgray-meter squared) FL/FL upper GI series IMPRESSION: Unremarkable upper GI air-contrast study.
== END 2020-10-14 10:41 | disposition home or self-care (01) ==
LOC: HO.XRAY 10:40
PROVIDERS: PCP Internal Medicine; Visit Provider Nurse Practitioner Family
DX: R10.13 Epigastric pain (principal)
CPT/HCPCS: 74240

== ENCOUNTER 2020-10-26 16:26 | Outpatient (REF) | payer OTHER, SELFPAY ==
--- NOTE | ~2020-10-26 | CT_ITS ---
EXAMINATION: CT CHEST WITHOUT CONTRAST CLINICAL INFORMATION: Follow-up pulmonary nodule COMPARISON: Previous chest CT scans most recent September 2019 TECHNIQUE: Multidetector volumetric CT imaging of the chest was done. Axial MIP volume rendering provided. Sagittal and coronal reformatted images were obtained. This CT examination was performed using dose optimization techniques as appropriate, variously including the following: *Automated exposure control *Adjustment of mA and/or kV according to patient size (this includes techniques or standardized protocols for targeted exams where dose is matched to indication/reason for exam; i.e. extremities or head) *Use of iterative reconstruction technique DLP: 126 mGy-cm FINDINGS: FUNNEL COATER: Unremarkable LUNGS: There is a 3 mm left lower lobe nodule axial image 274 series 7 that is stable. The lungs are otherwise clear. MEDIASTINUM: The mediastinum is normal. PLEURA: There is no pleural effusion. No pleural mass or thickening. AXILLA: No lymphadenopathy. UPPER ABDOMEN: There is a small central low-attenuation lesion in the liver measuring 1 cm axial image 51 series 3 that is stable. OSSEOUS STRUCTURES: Unremarkable. CT/CT chest wo con IMPRESSION: Stable small 3 mm left lower lobe pulmonary nodule.
== END 2020-10-26 16:27 | disposition home or self-care (01) ==
LOC: HO.CT 16:26
PROVIDERS: Visit Provider Internal Medicine Pulmonary Disease
DX: R91.1 Solitary pulmonary nodule (principal)
CPT/HCPCS: 71250

== ENCOUNTER 2021-09-27 15:33 | Outpatient (REF) | payer OTHER, SELFPAY ==
[2021-09-27 15:54] LABS: MANUAL DIFF FLAG NO
[2021-09-27 16:50] LABS: Basophils Percent Auto 0.4 % (0-2); Eosinophils Percent Auto 0.6 % (0-4); Hematocrit 42.2 % (37.0-47.0); Hemoglobin 13.9 g/dl (12.0-16.0); Imm Gran Abs Auto 0.01 X10*3/uL (0.00-0.03); Imm Gran Pct Auto 0.2 % (0.0-0.4); Lymphocytes Absolute Auto 2.3 X10*3/uL (1.2-4.9); Lymphocytes Percent Auto 48.8 % (20-40); Mean Corpuscular HGB Conc 32.9 g/dl (31.0-35.0); Mean Corpuscular Hemoglobin 30.5 pg (27.0-33.0); Mean Corpuscular Volume 92.7 fL (80.0-98.0); Monocytes Absolute Auto 0.4 X10*3/uL (0.1-1.2); Monocytes Percent Auto 8.1 % (2-11); Neutrophils Percent Auto 41.9 % (45-73); Platelet Count 273 X10*3/uL (160-400); Red Blood Count 4.55 X10*6/uL (4.20-5.50); Red Cell Distribution Width 11.8 % (11.0-16.0); White Blood Count 4.7 X10*3/uL (4.8-10.8)
[2021-09-27 17:23] LABS: Alanine Aminotransferase 13 U/L (0-31); Albumin Level 4.1 g/dL (3.5-5.0); Alkaline Phosphatase 62 U/L (39-117); Anion Gap 10 (12-20); Aspartate Amino Transferase 18 U/L (5-31); Bilirubin Total 0.6 mg/dL (0.0-1.0); Blood Urea Nitrogen 7 mg/dL (9-16); Calcium 9.1 mg/dL (8.4-10.2); Carbon Dioxide 26 mmol/L (22-29); Chloride 107 mmol/L (96-108); Cholesterol 197 mg/dL; Estimated Glomerular Filt Rate > 60; Glucose Fasting 83 mg/dL (60-99); HDL Cholesterol 64 mg/dL; LDL Cholesterol Calculated 115 mg/dl; Potassium 4.5 mmol/L (3.3-5.1); Sodium 138 mmol/L (135-145); Total Protein 6.7 g/dL (6.5-8.0); Triglycerides 91 mg/dL
[2021-09-27 18:16] LABS: Folate 17.4 ng/mL (> or = 4.0); Vitamin B12 1049 pg/mL (200-900)
[2021-10-01 16:36] LABS: Vitamin D 25-OH, D2 <4 ng/mL; Vitamin D 25-OH, D3 22 ng/mL; Vitamin D 25-OH, Total 22 ng/mL (30-100)
== END 2021-09-27 15:34 | disposition home or self-care (01) ==
LOC: HO.LAB 15:33
PROVIDERS: PCP Internal Medicine; Visit Provider Nurse Practitioner Acute Care
DX: Z00.00 Encounter for general adult medical examination without abnormal findings (principal); M79.7 Fibromyalgia
CPT/HCPCS: 36415; 80053; 80061; 82306; 82607; 82746; 85025

== ENCOUNTER 2022-03-20 21:37 | Emergency (ER) | payer OTHER, SELFPAY ==
--- NOTE | ~2022-03-20 | XR_ITS ---
EXAMINATION: XR ANKLE, RIGHT CLINICAL INFORMATION: Ankle pain COMPARISON: None TECHNIQUE: AP, lateral, and mortise views of the right ankle. FINDINGS: There is soft tissue swelling laterally as well as medially. A spiral fracture is present of the lateral malleolus. There is widening of the medial clear space measuring 6 mm. No other fractures are seen. A plantar calcaneal spur is incidentally noted. XR/XR ankle RT min 3V IMPRESSION: Spiral fracture lateral malleolus with widening of the medial clear space indicating possible instability.
[2022-03-20 21:46] VITALS: BP 131/84; PULSE 94; RESP 18; TEMP 36.8; O2SAT 99; BMI 27.4
[2022-03-20] MEDS: Acetaminophen 325 MG TABLET 975 MG PO (22:12)
--- NOTE | 2022-03-20 22:36 | ED.LOWEXIN ---
HPI - Extremity Injury (Lower) General Chief Complaint: Extremity Injury, Lower Stated Complaint: ankle inj Time Seen by Provider: 03/20/22 22:16 Source: patient Mode of arrival: ambulatory Limitations: no limitations History of Present Illness HPI Narrative: Patient is a 41 year old assigned female at with a history of anxiety presenting to the emergency department today with right ankle pain. Patient states that she stepped on something on the stairs and rolled her right ankle. Patient denies hitting her head with the incident. Patient denies any loss of consciousness with the incident. Patient denies any dizziness, lightheadedness, abdominal pain, nausea, vomiting, fever, chills, blurry vision, double vision, loss of vision, chest pain, difficulty breathing, shortness of breath, back pain, night sweats, pain with urination, increased urinary frequency, increased urinary urgency, blood in her urine or stool, syncope or a near syncopal episode, bowel incontinence, bladder incontinence, bowel retention, bladder retention, or any other complaints at this time. MD complaint: ankle injury Onset (ago): minute(s) Place: home Severity: moderate Severity scale (1-10): 4 Relieving factors: nothing Exacerbating factors: weight bearing and movement Related Data Home Medications Medication Instructions Recorded Confirmed albuterol sulfate 90 mcg/actuation 2 puff PO Q2H PRN 01/16/20 11/25/21 aerosol inhaler Previous Rx's Medication Instructions Recorded bupropion HCl 150 mg 24 hr tablet, 150 mg PO DAILY 90 days #90 tabs 06/02/21 extended release ibuprofen 800 mg tablet 800 mg PO Q8H PRN pain #20 tabs 06/02/21 trazodone 50 mg tablet 50 mg PO BEDTIME PRN sleep #14 tabs 06/02/21 omeprazole 40 mg capsule,delayed 40 mg PO DAILY #30 caps 11/25/21 release nirmatrelvir 300 mg (150 mg 3 ea PO PER PKG DIR 5 days #30 ea 12/01/21 x2)-ritonavir 100 mg tablet,dose pack(EUA) (Paxlovid) lorazepam 0.5 mg tablet (Ativan) 0.5 mg PO BEDTIME PRN anxiety 30 12/14/21 days #20 tabs azithromycin 250 mg tablet See Rx Instructions PO .COMPLEX #6 02/21/22 tabs hydrocodone 5 mg-acetaminophen 325 1 tab PO Q6H PRN pain #5 tabs 03/20/22 mg tablet Allergies Allergy/AdvReac Type Severity Reaction Status Date / Time Penicillins Allergy Mild rash Verified 11/25/21 15:44 Review of Systems Constitutional: Constitutional: Reports no additional constitutional complaints, Denies chills, Denies fever(s) and Denies night sweats Eyes: Eyes: Reports no additional eye complaints, Denies blurry vision, Denies change in vision, Denies diplopia, Denies eye discharge, Denies loss of vision and Denies eye pain ENT: Denies dizziness Cardiovascular: Cardiovascular: Reports no additional cardiovascular complaints, Denies chest pain, Denies lightheadedness, Denies Loss of Consciousness and Denies dyspnea Respiratory: Respiratory: Reports no additional respiratory complaints and Denies dyspnea Gastrointestinal: Gastrointestinal: Reports no additional gastrointestinal complaints, Denies abdominal pain, Denies melena, Denies hematochezia, Denies change in bowel habits and Denies change in stool character Genitourinary: Genitourinary: Denies hematuria, Denies urinary frequency, Denies dysuria, Denies urinary incontinence, Denies urinary hesitancy and Denies urinary urgency Musculoskeletal: Musculoskeletal: Reports no additional musculoskeletal complaints, Denies numbness and Denies tingling Comments: right ankle pain Neurologic: Denies dizziness, Denies loss of vision, Denies numbness and Denies tingling Psychiatric: Psychiatric: Reports no additional psychiatric complaints Endocrine: Endocrine: Reports no additional endocrine complaints Hematologic/Lymphatic: Hematologic/Lymphatic: Reports no additional hematologic/lymphatic complaints Allergic/Immunologic: Allergic/Immunologic: Reports no additional allergic/immunologic complaints [facility] Past Medical History Attestation statement: The following information was validated with the patient. Source: old records reviewed and nursing notes reviewed Medical History Anxiety Fibromyalgia Left arm numbness Surgical History Hx of tonsillectomy Family History Family History Father Medical history unknown Mother Medical history unknown Maternal Grandmother Breast cancer Maternal Grandfather No problems noted. Paternal Grandmother No problems noted. Social History Social History (Reviewed 03/21/22 @ 00:00 by CECIL Bird Housing: House Alcohol intake: current Alcohol intake frequency: holidays/special occasions only Patient Tobacco Use Status: Never used Tobacco Second Hand Smoke Exposure: No Advance Directives: No Advance Directives Information Provided: No service: No Current occupational status: employed Physical Exam Vital Signs: Vital Signs: Last Vital Signs Temp 98.4 F 03/20/22 22:42 Pulse 87 03/20/22 22:42 Resp 17 03/20/22 22:42 BP 135/83 03/20/22 22:42 Pulse Ox 99 03/20/22 22:42 O2 Del Method 03/20/22 22:42 BMI result Body Mass Index 27.4 Const: General: cooperative, no acute distress, alert and awake Nutritional Appearance: well nourished Orientation/consciousness: patient oriented x3 Limitations: no limitations HEENT: Head: Yes normal to inspection and Yes atraumatic Ears: hearing grossly normal bilaterally and external ears normal General nose exam: Normal external nose present, no nasal discharge noted and no epistaxis Face and sinus: Yes normal facial exam, No abrasion and No laceration Mouth: Normal oral and palatal mucosa present, no drooling and no muffled voice Eyes: General: appearance normal, both eyes and all related structures Periorbital: periorbital findings normal Eyelids: Yes eyelids normal Conjunctivae: conjunctivae normal Pupils: Equal, round and reactive pupils present EOM: EOMs intact bilaterally Neck: Neck: Yes normal visual inspection, Yes full ROM and Yes no lymphadenopathy Chest: Chest palpation & inspection: normal inspection of the chest Resp: Effort & Inspection: normal respiratory effort and able to speak in complete sentences Auscultation: clear to auscultation bilaterally Cardio: Rate: regular rate Rhythm: regular rhythm GI: Inspection: Yes normal to inspection Palpation (GI): Soft to palpation, not firm, nontender, no guarding and not rigid Neuro: General: patient oriented x3 and moves all extremities Cranial nerves: Yes Equal, round and reactive pupils present Cognition (Neuro): normal cognition Motor exam (neuro): 5/5 motor strength present throughout Sensory Exam: Normal double simultaneous stimulation for sensation Coordination: [id number] test normal Extrem: Other: painful ROM of the right ankle and mild swelling to the lateral aspect of the right ankle General: Yes full ROM and Yes capillary refill normal Psych: Appearance: grossly normal Mental Status: mental status grossly normal Affect: normal affect Attitude: cooperative Thought process: Normal thought process present Thought content: Normal thought content present Insight: Good insight present (Psych) Medications Administered Discontinued Medications Generic Name Dose Route Start Last Admin Trade Name Isabella PRN Reason Stop Dose Admin Acetaminophen 975 mg 03/20/22 22:02 03/20/22 22:12 Acetaminophen 325 Mg Tablet PO 03/20/22 22:03 975 mg ONCE ONE Administration Morphine Sulfate 4 mg 03/20/22 22:46 03/20/22 23:02 Morphine Sulfate 4 Mg/Ml Cartridge IM 03/20/22 22:47 4 mg ONCE ONE Administration Protocol Ondansetron HCl 4 mg 03/20/22 22:46 03/20/22 23:02 Ondansetron Odt 4 Mg Tab.Rapdis TRANSLINGU 03/20/22 22:47 4 mg ONCE ONE Administration Medical Decision Making Medical Decision Making MDM Narrative: Patient is a 41 year old assigned female at with a history of anxiety presenting to the emergency department today with right ankle pain. Patient's physical exam showed mild swelling to the lateral aspect of the right ankle and painful ROM of the right ankle but was otherwise unremarkable. Patient's right ankle x-ray showed a spiral fracture of the lateral malleolus with widening of the medial clear space indicating possible instability. I explained my physical exam findings as well as all test results to the patient. I answered all questions asked by the patient. Patient received IM Morphine which she stated helped her pain significantly. Patient's right ankle was placed in a posterior short leg splint with ankle stirrups, without incident. Patient was given crutches with crutch instructions. I stressed the importance of the patient taking her medication as prescribed. I stressed the importance of the patient following up with her primary care provider and an orthopedic provider. I stressed the importance of the patient returning to the emergency department immediately if her symptoms were to worsen or if she were to develop any dizziness, shortness of breath, difficulty breathing, chest pain, blurry vision, loss of vision, nausea, vomiting, abdominal pain, fever, chills, back pain, or any other complaints. Patient verbalized agreement and understanding with this treatment plan and discharge. Differential Diagnosis Differential Diagnoses: The differential diagnosis associated with the presentation includes ankle fracture Radiology Impression Discussion of test interpretation with radiology: I have reviewed the radiologist's reading. Radiologist Impression: EXAMINATION: XR ANKLE, RIGHT CLINICAL INFORMATION: Ankle pain? COMPARISON: None? TECHNIQUE: AP, lateral, and mortise views of the right ankle. FINDINGS: There is soft tissue swelling laterally as well as medially. A spiral fracture is present of the lateral malleolus. There is widening of the medial clear space measuring 6 mm. No other fractures are seen. A plantar calcaneal spur is incidentally noted. XR/XR ankle RT min 3V IMPRESSION: Spiral fracture lateral malleolus with widening of the medial clear space indicating possible instability. Dictated By: Nick Granda MD Signed By: Electronically signed by Nick Granda MD 03/20/22 0905 Procedures Orthopedic Splinting/Casting Injury #1: Side: right Lower Extremity Injury Location: ankle Lower Extremity Immobilizer: posterior splint Other Orthopedic Equipment: crutches Discharge Plan Discharge Clinical Impression: Ankle fracture Patient Disposition: Home, Self-Care Instructions: Ankle Fracture (ED), Narcotic Safety (ED), Safe Disposal of Narcotics (ED) Additional Instructions: Follow up with your primary care provider and the accounting specialist. Return to the emergency department immediately if your symptoms worsen or if you develop any dizziness, shortness of breath, difficulty breathing, chest pain, blurry vision, loss of vision, nausea, vomiting, abdominal pain, fever, chills, back pain, or any other complaints. Prescriptions: New hydrocodone-acetaminophen 5-325 mg tablet 1 tab PO Q6H PRN (Reason: pain) Qty: 5 0RF Rx Instructions: Partial Fill upon patient request. No Action Paxlovid (EUA) 300 mg (150 mg x 2)-100 mg tablets,dose pack 3 ea PO PER PKG DIR 5 Days Qty: 30 0RF lorazepam [Ativan] 0.5 mg tablet 0.5 mg PO BEDTIME PRN (Reason: anxiety) 30 Days Qty: 20 0RF albuterol sulfate 90 mcg/actuation HFA aerosol inhaler 2 puff PO Q2H PRN bupropion HCl 150 mg tablet extended release 24 hr 150 mg PO DAILY 90 Days Qty: 90 3RF trazodone 50 mg tablet 50 mg PO BEDTIME PRN (Reason: sleep) Qty: 14 0RF Hold Instructions: Doctor's Order Rx Instructions: 1/2 tablet po at bedtime, if tolerate, and no effects may take full tablet. ibuprofen 800 mg tablet 800 mg PO Q8H PRN (Reason: pain) Qty: 20 0RF omeprazole 40 mg capsule,delayed release(DR/EC) 40 mg PO DAILY Qty: 30 0RF azithromycin 250 mg tablet See Rx Instructions PO .COMPLEX Qty: 6 0RF Rx Instructions: take 500 mg today (day 1), then 250 mg for 4 days (days 2-5) PO [place] [facility] [place] [facility] [place] Group] (Call to establish and follow up with an accounting specialist. ) Monalisa Urban MD [Primary Care Provider] - Stand Alone Forms: Work/School Release Interventions: ED Discharge Assessment Last Done: 03/20/22 23:56 Discharge Date/Time: 03/20/22 23:57 Print Language: Occitan
[2022-03-20 22:42] VITALS: BP 135/83; PULSE 87; RESP 17; TEMP 36.9; O2SAT 99
[2022-03-20] MEDS: Ondansetron ODT 4 MG TAB.RAPDIS TRANSLINGU (23:02)
[2022-03-20] MEDS: Morphine Sulfate 4 MG/ML CARTRIDGE IM (23:02)
== END 2022-03-20 23:57 | disposition home or self-care (01) ==
PROVIDERS: Emergency Provider Emergency Medicine; PCP Internal Medicine
DX: S82.891A Other fracture of right lower leg, initial encounter for closed fracture (principal); W10.9XXA Fall (on) (from) unspecified stairs and steps, initial encounter; Y93.9 Activity, unspecified; Y92.9 Unspecified place or not applicable; Y99.9 Unspecified external cause status; Z79.899 Other long term (current) drug therapy
CPT/HCPCS: 29515; 73610; 96372; 99283; 99284; J2270

== ENCOUNTER → 2022-03-21 14:17 | Outpatient (BNVA) | payer OTHER, SELFPAY | PROVIDERS: PCP Internal Medicine; Visit Provider Physician Assistant | DX: S82.61XA Displaced fracture of lateral malleolus of right fibula, initial encounter for closed fracture (principal) | CPT/HCPCS: 99202 ==

== ENCOUNTER 2022-03-23 08:30 | Day surgery (SDC) | payer OTHER, SELFPAY ==
--- NOTE | 2022-03-22 12:32 | HO.ANESPROP2 ---
Documented by User: Emeli Muse NP 03/22/22 12:33 HPI - Anesthesia Eval Consult details Narrative: 41yo F for Right Ankle Fracture ORIF PMFSH Active Problems Active Problems: All Active Problems (Updated 03/21/22 @ 00:01 by Lena Avalos) Upper respiratory tract infection (Acute) Depression, major, recurrent, moderate (Acute) Anxiety (Acute) Persistent insomnia (Acute) Physical exam (Acute) Fibromyalgia (Acute) Left arm numbness (Acute) Right lower quadrant abdominal pain (Acute) Chronic idiopathic constipation (Acute) Abdominal pain (Acute) Past Medical History Medical History Anxiety Fibromyalgia Left arm numbness Family History Family History Father Medical history unknown Mother Medical history unknown Maternal Grandmother Breast cancer Maternal Grandfather No problems noted. Paternal Grandmother No problems noted. 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 Meds Allergies Allergy/AdvReac Type Severity Reaction Status Date / Time Penicillins Allergy Severe Anaphylaxis Verified 03/23/22 09:14 Home Medications Medication Instructions Recorded Confirmed Last Taken Type albuterol sulfate 90 mcg/actuation 2 puff PO Q2H PRN 01/16/20 03/21/22 Unknown History aerosol inhaler Exam Exam Date and Time: March 22, 2022 1232 Pertinent Lab Results Pertinent Lab Results: Laboratory Tests 09/27/21 09/27/21 15:53 15:53 WBC 4.7 L Hgb 13.9 Hct 42.2 Plt Count 273 Sodium 138 Potassium 4.5 Chloride 107 Carbon Dioxide 26 BUN 7 L Creatinine 0.77 Assessment and Plan Assessment Anesthesia Assessment: Chart Reviewed Documented by User: Cristian Marroquin MD 03/23/22 17:35 [facility] Past Medical History Medical History Anxiety Fibromyalgia Left arm numbness Family History Family History Father Medical history unknown Mother Medical history unknown Maternal Grandmother Breast cancer Maternal Grandfather No problems noted. Paternal Grandmother No problems noted. 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 Meds Allergies Allergy/AdvReac Type Severity Reaction Status Date / Time Penicillins Allergy Severe Anaphylaxis Verified 03/23/22 09:14 Home Medications Medication Instructions Recorded Confirmed Last Taken Type albuterol sulfate 90 mcg/actuation 2 puff PO Q2H PRN 01/16/20 03/21/22 Unknown History aerosol inhaler Exam Airway Mallampati Class: IV TM Dist: >3cm Neck ROM: Full Loose/Missing/Broken Teeth: Yes (Multiple chipped teeth) Heart: S1,S2 Lungs: b/l breath sounds Assessment and Plan Assessment Anesthesia Assessment: Anesthesia Plan Discussed Final Anesthetic Review Family History of Problems with Anesthesia: No History of Problems with Anesthesia: No NPO: Yes ASA Class: II Final Preanesthetic Review: Meds/Allgs Chart Reviewed, Consent Obtained/Reviewed and Anes Risks/Benef Reviewed Patient Risk: Intermediate Procedure Risk: Intermediate Anesthetic Plan Anesthetic Plan: GA and Regional Block Disposition: Standard PACU
[2022-03-23] VITALS (11 sets, daily range): BP systolic 100–135; BP diastolic 53–80; PULSE 63–98; RESP 16–18; TEMP 36.6–37.2; O2SAT 98–100; BMI 28.9
--- NOTE | ~2022-03-23 | FL_ITS ---
EXAMINATION: XR FLUOROSCOPY WITH IMAGES CLINICAL INFORMATION: OR internal fixation right ankle COMPARISON: March 20, 2022 TECHNIQUE: Fluoroscopy Supervised By: Dr. Parveen Thompson. Fluoroscopy Time: 0.2 minutes. Cumulative Dose: 0.849 mGy. DAP: 0.0147 mGycm2. Images: 4. FINDINGS: Intraoperative fluoroscopic images provided demonstrating OR internal fixation of distal right fibular fracture. FL/FL guidance in OR IMPRESSION: Intraoperative fluoroscopy for orthopedic procedure.
[2022-03-23 09:01] LABS: UPreg QC Valid YES; Urine Pregnancy NEGATIVE (NEGATIVE)
[2022-03-23] MEDS: Lactated Ringers 1,000 ML 100 ML IVCONT (09:28)
--- NOTE | 2022-03-23 10:08 | MHC.SHP ---
Pre-Procedural Eval Section A Date of Service: 03/23/22 The patient is an INPATIENT: No Changes since office visit: No Cold of Flu in the past 2 weeks, No New Medical Problems, No Changes in Medication and No Patient answered all questions The History & Physical has been completed within 30 days and I have reviewed it.: Yes Section B Chief Complaint: Displaced fracture of lateral malleolus of right f Allergies: Allergies Allergy/AdvReac Type Severity Reaction Status Date / Time Penicillins Allergy Severe Anaphylaxis Verified 03/23/22 09:14 Plan I have reviewed the history and physical and performed a pertinent physical examination on my patient. No changes have occurred unless specified. Time Spent With Patient Time: Total time managing care of this patient today ____ minutes.
--- NOTE | 2022-03-23 11:28 | PM.OP ---
Brief Operative Note Date of Service: 03/23/22 Pre-op diagnosis: Right ankle fracture Post-op diagnosis: same Procedure: 1) ORIF right lateral malleolus 2) ORIF right syndesmosis Implants: Juliocesar lateral locking plate Arthrex syndesmosis tightrope Surgeon: Parveen Thompson MD Anesthesia: GETA and regional Was an Industrial Pipefitter Journeyman used for this Procedure?: Yes Industrial Pipefitter Journeyman: Danielle Benjamin Estimated blood loss (mL): 20 Tourniquet time (min): 35 IV fluids (mL): 1,000 Pathology: none sent Condition: stable Disposition: PACU
[2022-03-23] MEDS: Haloperidol Lactate 5 MG/ML VIAL 1 MG IV (13:16)
[2022-03-23] MEDS: oxyCODONE HCl Immed Release 5 MG TABLET PO (13:44)
--- NOTE | 2022-03-23 15:14 | P.OP_ITS ---
Operative Note Operative Note Date of Service: 03/23/22 Narrative: Brief Operative Note Date of Service: 03/23/22 Pre-op diagnosis: Right ankle fracture Post-op diagnosis: same Procedure: 1) ORIF right lateral malleolus 2) ORIF right syndesmosis Implants: Juliocesar lateral locking plate Arthrex syndesmosis tightrope Surgeon: Parveen Thompson MD Anesthesia: GETA and regional Was an Computer Hardware Technician used for this Procedure?: Yes Computer Hardware Technician: Danielle Benjamin Estimated blood loss (mL): 20 Tourniquet time (min): 35 IV fluids (mL): 1,000 Pathology: none sent Condition: stable Disposition: PACU Procedure in detail: Patient was brought to the operating room and placed supine on the operative table. All bony prominences were well padded and a time-out was called to identify proper site proper procedure proper surgeon. IV antibiotics per weight were administered. I began by exsanguinating limb is slightly tourniquet to 300 mm Hg. I then made a standard posterolateral incision over the fibula. Full- thickness flaps were taken down to the fibular shaft and distal fibula. The fracture was identified and cleaned with a combination of curette, rongeur and irrigation. A lag screw was placed perpindicular to the fracture using standard AO technique. A lobster claw was used to provisionally reduce the fracture and a 6 hole distal fibular locking plate was applied using standard AO technique. Biplanar fluoroscopy was used to confirm hardware position and fracture reduction. Once I was satisfied that both of these were acceptable I irrigated copiously and turned my attention to the medial side. The syndesmosis was tested using external rotation test and was found to be unstable. Therefore I drilled a tightrope from lateral to medial at an superior angle of 20deg. I tightrope was then placed through the fibular plate and tightened. The external rotation test was subsequently negative. Final radiographs were obtained. All instrumentation was removed and copious irrigation was performed. Absorbable suture and jasbir were used for closure and the patient was placed into sterile dressings and a well-padded posterior splint. Tourniquet was let down and the patient was extubated brought to recovery room in stable condition there were no known complications.
== END 2022-03-23 14:41 | disposition home or self-care (01) ==
PROVIDERS: Nurse Practitioner; PCP Internal Medicine; Visit Provider Orthopaedic Surgery
PROC: (CPT 27792; principal; 2022-03-23 10:30)
DX: S82.61XA Displaced fracture of lateral malleolus of right fibula, initial encounter for closed fracture (principal); X50.1XXA Overexertion from prolonged static or awkward postures, initial encounter; W22.8XXA Striking against or struck by other objects, initial encounter; Y93.01 Activity, walking, marching and hiking; Y92.9 Unspecified place or not applicable; Y99.8 Other external cause status; F41.1 Generalized anxiety disorder; M79.7 Fibromyalgia; Z79.899 Other long term (current) drug therapy; Z88.0 Allergy status to penicillin
CPT/HCPCS: 27792; 27829; 81025; C1713; J0690; J1170; J2250; J2405; J2550; J2795; J3010

== ENCOUNTER 2022-03-29 14:55 | Outpatient (REF) | payer OTHER, SELFPAY ==
--- NOTE | ~2022-03-29 | XR_ITS ---
EXAMINATION: XR ANKLE, RIGHT CLINICAL INFORMATION: Pain. COMPARISON: 03/20/2022. TECHNIQUE: AP, lateral, and mortise views of the right ankle. FINDINGS: Patient is status post or internal fixation of distal right fibular fracture with plate and side screw. Skin jasbir are seen in place. The previously noted widening of the medial clear space is no longer evident. Calcaneal spur plantar spur is seen. XR/XR ankle RT min 3V IMPRESSION: Satisfactory postoperative appearance of the right ankle.
== END 2022-03-29 14:56 | disposition home or self-care (01) ==
LOC: HO.HOSX 14:55
PROVIDERS: PCP Internal Medicine; Visit Provider Physician Assistant
DX: S82.61XD Displaced fracture of lateral malleolus of right fibula, subsequent encounter for closed fracture with routine healing (principal)
CPT/HCPCS: 29515; 73610

== ENCOUNTER 2022-04-01 07:31 | Outpatient (REF) | payer OTHER, SELFPAY | END 2022-04-01 07:32 | disposition home or self-care (01) | LOC: HO.HOSX 07:31 | PROVIDERS: Visit Provider Physician Assistant | DX: S82.61XD Displaced fracture of lateral malleolus of right fibula, subsequent encounter for closed fracture with routine healing (principal) | CPT/HCPCS: 29405 ==

== ENCOUNTER 2022-04-07 17:13 | Outpatient (REF) | payer OTHER, SELFPAY ==
--- NOTE | ~2022-04-07 | XR_ITS ---
EXAMINATION: XR ANKLE, RIGHT CLINICAL INFORMATION: Pain COMPARISON: Ankle radiographs 03/29/2022 TECHNIQUE: AP, lateral, and mortise views of the right ankle. FINDINGS: Status post ORIF of the ankle with lateral plate and screw fixation and Endobutton along the medial malleolus, in unchanged alignment. There is decreased conspicuity of the distal fibular fracture margins compatible with ongoing healing. No new fracture or dislocation. Plantar calcaneal spurring. Ankle mortise is congruent. Soft tissues are unremarkable. No tibiotalar joint effusion. XR/XR ankle RT min 3V IMPRESSION: ORIF of the ankle in unchanged alignment with decreased conspicuity of the distal fibular fracture margins compatible with ongoing healing.
== END 2022-04-07 17:14 | disposition home or self-care (01) ==
LOC: HO.HOSX 17:13
PROVIDERS: Visit Provider Physician Assistant
DX: S82.61XD Displaced fracture of lateral malleolus of right fibula, subsequent encounter for closed fracture with routine healing (principal)
CPT/HCPCS: 29405; 73610

== ENCOUNTER → 2022-04-11 14:22 | Outpatient (BNVA) | payer OTHER, SELFPAY | PROVIDERS: PCP Internal Medicine; Visit Provider Physician Assistant | DX: S82.61XA Displaced fracture of lateral malleolus of right fibula, initial encounter for closed fracture (principal) | CPT/HCPCS: 29405 ==

== ENCOUNTER 2022-05-02 17:17 | Outpatient (REF) | payer OTHER, SELFPAY ==
--- NOTE | ~2022-05-02 | XR_ITS ---
EXAMINATION: XR ANKLE, RIGHT CLINICAL INFORMATION: Pain in right ankle and joints of right foot COMPARISON: 04/07/2022 TECHNIQUE: AP, lateral, and mortise views of the right ankle. FINDINGS: Lateral buttress plate and multiple screws are seen at the distal fibula with an additional syndesmotic tightrope repair with endobuttons medially and laterally. The distal fibular fracture remains faintly visualized. The ankle mortise is symmetric. No diastasis of the distal tibial fibular syndesmosis. A well-defined plantar calcaneal spur is seen. XR/XR ankle RT min 3V IMPRESSION: Normal alignment of the ankle. The distal fibular fracture remains faintly visualized in anatomic alignment. The ankle mortise is symmetric.
== END 2022-05-02 17:18 | disposition home or self-care (01) ==
LOC: HO.HOSX 17:17
PROVIDERS: Visit Provider Physician Assistant
DX: S82.61XD Displaced fracture of lateral malleolus of right fibula, subsequent encounter for closed fracture with routine healing (principal); X58.XXXD Exposure to other specified factors, subsequent encounter
CPT/HCPCS: 73610

== ENCOUNTER 2022-06-13 12:02 | Outpatient (REF) | payer OTHER, SELFPAY ==
--- NOTE | ~2022-06-13 | XR_ITS ---
EXAMINATION: XR ANKLE, RIGHT CLINICAL INFORMATION: Pain right ankle and joint. COMPARISON: Right ankle 05/02/2022 TECHNIQUE: AP, lateral, and mortise views of the right ankle. FINDINGS: There is a lateral fibular plate and screws stabilizing old healed fibular fracture. Distal medial tibial button is stable.. The ankle mortise and subtalar joints are normal. There is a small calcaneal heel spur. No acute recurrent fracture seen. XR/XR ankle RT min 3V IMPRESSION: Stabilized fibular heel fracture with lateral plate and screws. No change from 05/02/2022. There is no recurrent fracture seen. The soft tissues are normal.
== END 2022-06-13 12:03 | disposition home or self-care (01) ==
LOC: HO.HOSX 12:02
PROVIDERS: Visit Provider Physician Assistant
DX: M25.571 Pain in right ankle and joints of right foot (principal); Z98.890 Other specified postprocedural states; Z87.81 Personal history of (healed) traumatic fracture
CPT/HCPCS: 73610; 99212

== ENCOUNTER 2022-07-21 07:43 | Outpatient (REF) | payer OTHER, SELFPAY ==
--- NOTE | ~2022-07-21 | XR_ITS ---
EXAMINATION: XR ANKLE, RIGHT CLINICAL INFORMATION: Ankle pain COMPARISON: 06/13/2022 TECHNIQUE: AP, lateral, and mortise views of the right ankle. FINDINGS: Distal fibular and medial malleolus are orthopedic hardware without evidence of hardware complication. No acute fracture or dislocation. Ankle mortise is preserved. Calcaneal enthesopathy. XR/XR ankle RT min 3V IMPRESSION: No acute fracture or dislocation. Orthopedic hardware without evidence of hardware complication.
== END 2022-07-21 07:44 | disposition home or self-care (01) ==
LOC: HO.HOSX 07:43
PROVIDERS: Visit Provider Physician Assistant
DX: M25.571 Pain in right ankle and joints of right foot (principal); M72.2 Plantar fascial fibromatosis; Z98.890 Other specified postprocedural states; Z87.81 Personal history of (healed) traumatic fracture
CPT/HCPCS: 73610; 99212

== ENCOUNTER 2022-08-09 14:00 | Outpatient (RCR) | payer OTHER, SELFPAY ==
--- NOTE | 2022-05-06 15:50 | MHC.PT.EP ---
[facility] [place] Office [place] Office [place] Office [address] Shauna Dave [address] [phone] F: [phone] F: [phone] F: [phone] F: [phone] Physical Therapy Plan of Care Date of Evaluation: Date of Surgery: 03/23/22 Diagnosis: S/P ORIF Rt ANKLE Assessment: 41 YO FEMALE REF TO PT S/P ORIF Rt DISTAL FIBULA ON 03/23/22- SHE HAD HER CAST REMOVED 05/03/22 AND IS CURRENTLY IN A TALL BOOT- PER ORTHO SHE IS CLEARED FOR PWB Rt W BOOT AND CRUTCHES. 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 AND HAS BEEN OOW SINCE HER FALL/ INJURY. Pt RESIDES IN A 3 LEVEL HOME- SHE HAS DECR AROM Rt DISTAL LE, HEALING INCISION Rt LAT ANKLE W DECR SOFT TISSUE MOBILITY, (+) EDEMA DISTAL Rt LE, STRENGTH DEFICITS IN Rt LE , AND DISCOMFORT IN HER Rt FOOT/ ANKLE AND GREAT TOE TINGLING. HER OVERALL FUNCT MOB HAS BEEN INFLUENCED DUE TO HER Rt LE NWB-> PWB STATUS- SHE BUTTOCK SCOOTS ON THE STAIRS AND HAS DIFFIC SLEEPING AND W LONGER WALKS. Pt IS A VERY GOOD PT CANDIDATE TO GUIDE HER IN HER POST-OP COURSE, PAIN MGMT, AND GRAD RETURN TO ADLs/ WORK. Pt IS MOTIVATED FOR PT. 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 Manual therapy to restore motion and function. Therapeutic exercise to improve strength and flexibility. Neuromuscular re-education for posture and balance. Therapeutic activities to return to functional activities of daily living. Electronically signed by: TYLER DOUGLAS,PT Please sign and return to therapist. Thank you for your referral.
== END 2022-08-09 15:29 | disposition home or self-care (01) ==
LOC: HO.PT 14:00
PROVIDERS: PCP Internal Medicine; Visit Provider Physician Assistant
DX: S82.61XD Displaced fracture of lateral malleolus of right fibula, subsequent encounter for closed fracture with routine healing (principal)
CPT/HCPCS: 97110; 97112; 97116; 97140; 97162; 97530

== ENCOUNTER 2022-09-07 11:33 | Outpatient (REF) | payer OTHER, SELFPAY ==
--- NOTE | ~2022-09-07 | US_ITS ---
EXAMINATION: US SOFT TISSUE HEAD/NECK CLINICAL INFORMATION: Generalized enlarged lymph nodes. COMPARISON: None available. TECHNIQUE: Linear transducer grayscale and color Doppler examination of the area indicated by patient, approximately level 3 right neck. Right neck scanned levels II through V. FINDINGS: The cutaneous, subcutaneous, muscular and fascial planes are unremarkable. At the right cervical level II, 2.0 x 0.9 x 2.7 cm and 1.4 x 0.7 x 1.2 cm reniform lymph nodes are seen. These show corticomedullary differentiation and no focal cortical thickening. There are vascular marbella. At right cervical level III, a 1.3 x 0.4 x 0.9 cm lymph node is seen, with cortical medullary differentiation, no focal cortical thickening and a vascular hilum. At right cervical level Va, 1.7 x 0.5 x 1.1 cm reniform lymph node is seen, with corticomedullary differentiation and a vascular hilum. No mass or fluid collection is seen. There is no foreign body. US/US soft tiss head and/or neck IMPRESSION: Mildly enlarged right cervical lymph nodes is seen, as detailed. These are likely nonspecific. They should be managed on a clinical basis. If of continued clinical concern, recommend repeat ultrasound examination of the soft tissues of the neck in 3-6 months to ensure stability/regression.
== END 2022-09-07 11:34 | disposition home or self-care (01) ==
LOC: HO.HMGCX 11:33
PROVIDERS: PCP Internal Medicine; Visit Provider Internal Medicine
DX: R59.1 Generalized enlarged lymph nodes (principal)
CPT/HCPCS: 76536

== ENCOUNTER 2022-10-12 14:23 | Outpatient (AMB) | payer OTHER, SELFPAY ==
--- NOTE | 2022-10-12 14:24 | MHC.OFFVIS ---
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 However, there is a new development in that the pain seems to have moved from the upper abdomen down to the right lower quadrant.? She presented again to the ER in the again did blood work and imaging but no definitive diagnosis was obtained. I tell her that I really think this is bowel spasm given the weight moves around the only forget that travels that way through the body are the intestines.? There is an outside shot could also involve the ureters but she has had no dysuria or blood in the urine. I tell her that if the dicyclomine works at all then we can move her to something stronger, I am considered imipramine, to help her with the pain but this is something of a test to see if this is in fact bile related since we can not find anything else.? She is able to repeat verbalize understanding and is agreeable to this.? I did not started on dicyclomine before because she was constipated but now that we have the bowels regulated I think we can begin to added on some medications even though they may be slightly constipating.? We also have the option of increasing the Linzess if needed. ? ? ? Medications:?New: ? dicyclomine 20 mg? PO QID 30 d ays 120 tabs 3RF ? ? (2) Right lower quadrant abdominal pain: ?Code(s): R10.31 - Right lower quadrant pain ?Category:?Medical ? ? ? Medications:?New: ? dicyclomine 20 mg? PO QID 30 d ays 120 tabs 3RF ? ? 2018 EGD FINDINGS: Video endoscope was introduced without difficulty. It was navigated into the posterior pharynx and into the esophagus. Esophageal mucosa was normal down to the distal 1 cm, where there was slight hyperemia. GE junction was clear and distinct. On entering the stomach, fundus and upper body were confluent. There was an immediate tendency for the scope to retroflex with a good view of a slightly deeper than usual fundic pool. GE junction appeared clear. Scope was repositioned couple of times and then was able to angle slightly, so that we would move through the distal body and into the antrum. There was mild erythema, two focal erosive changes seen. The pylorus was open. Duodenal bulb proximally had slight maybe flattened villi; however, with water jet, there was villi seen to be more prominent. Duodenal biopsies were obtained. Gastric biopsies were obtained. PLAN: The patient will be seen back in the office. Some of her problems may be due to the shape of her stomach in a combination of what she might be eating at that time or whether or not her bowels have been moving regularly. Her symptoms should be reassessed with consideration to further imaging studies. GRAFT OR IMPLANTS: None. CONDITION OF THE PATIENT: Postprocedure, stable. Amanda Zelaya MD MEN/MODL DIAGNOSIS A. Small bowel, biopsies: Small intestinal mucosa within normal limi ts; negative for active and chronic enter itis, intraepithel ial lymphocytosis, villous blunting, dyspla tony, and carcinoma . B. Gastric, ran dom, biopsies: An tral and corpus mu cosa with moderate chronic active gastri tis with scattered Helicobacter pylo ri; negative for i ntestinal metapl tejas, dysplasia, a nd carcinoma. TODAY'S VISIT The pt has been lost to follow up since 2019. She has a history of H pylori erosive gastritis in 2019 and was treated with quadruple therapy and had a subsequent negative H pylori breath test. She fell on her stairs and fractured her right ankle and this needed plates and screws. This was over the winter of 2021/2022. She has been having epigastric to gastric pain over the past year. At first it was intermittent but not it is happening more often and is more painful. It is a dull/aching pain 6-7/10, and it does not seem to matter if she eats of if her stomach is empty. She has a hx of erosive gastritis in 2019 and was on bid protonix, but has not been on this for 3 years. Also, she was on NSAIDS after her ankle fx although not at this time. She is moving her bowels well and not having the cramping pain she had in the past. She is not using Linzess. Will get EGD, HP breath test and restart her bid protonix. ROV 6 weeks. . PFSH Medical History Anxiety Fibromyalgia Left arm numbness Surgical History History of ankle surgery Hx of tonsillectomy Family History Father Medical history unknown Mother Medical history unknown Maternal Grandmother Breast cancer Maternal Grandfather No problems noted. Paternal Grandmother No problems noted. 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 Current occupational exposures/hazards: No Cognitive needs: No Hearing needs: No Vision needs: No Review of Systems Const Denies fatigue, Denies fever(s), Denies night sweats, Reports poor appetite and Reports weight loss (10 lbs christel) ENT Reports Normal hearing present, Denies dental pain, Denies dysphagia, Denies hearing loss, Denies mouth pain, Denies odynophagia, Denies throat swelling, Denies tongue swelling and Reports other (Dentition adequate) Card Reports no additional complaints Resp Reports no additional complaints GI Reports abdominal pain, Denies melena, Denies bloating, Denies hematochezia, Denies constipation, Denies GI cramping, Denies dysphagia, Denies excessive flatus, Denies early satiety, Denies heartburn, Denies diarrhea, Denies nausea, Denies odynophagia, Denies vomiting and Denies hematemesis Skin/Breast Denies pruritus, Denies lesions, Denies rash and Denies jaundice Neuro Reports Normal hearing present and Denies Abnormal speech present Endo Denies fatigue Aller/Immun Denies throat swelling and Denies tongue swelling Physical Exam Vital Signs: Last Vital Signs Pulse 86 10/12/22 14:34 BP 96/67 10/12/22 14:34 BMI result Body Mass Index 27.5 Const General: cooperative, no acute distress, well developed and well groomed Nutritional Appearance: average body habitus and well nourished Orientation/consciousness: oriented to person, oriented to place and oriented to time Limitations: No language barrier HEENT Head: Yes normocephalic and Yes atraumatic Eyes General: appearance normal, both eyes and all related structures Pupils: Equal, round and reactive pupils present Neck Neck: Yes normal visual inspection and Yes no lymphadenopathy Thyroid: Thyroid normal Resp Effort & Inspection: normal respiratory effort and able to speak in complete sentences Auscultation: clear to auscultation bilaterally Cardio Rate: regular rate Rhythm: regular rhythm Heart sounds: Normal, physiologic split S2 sound present Peripheral pulses: radial pulses present and posterior tibial pulses present GI Inspection: No distended, No Abdominal panniculus present and Yes striae Palpation (GI): Soft to palpation, Tenderness to palpation present (GI) in the epigastrum, no guarding, not rigid and No hepatosplenomegaly present Percussion: Yes normal to percussion Auscultation: normal bowel sounds Rectal Exam - Female: deferred Skin General skin exam: no rashes or lesions noted, turgor normal, skin not dry, no jaundice, No spider nevi and no striae Rashes: no rashes Nails: normal Neuro General: oriented to person, oriented to place and oriented to time Cranial nerves: Yes Equal, round and reactive pupils present and Yes Normal hearing present Speech: No Abnormal speech present Extrem General: Yes normal to inspection, No clubbing, No cyanosis and No edema Ankle/foot/toe images: 1. well healing surgical scar Psych Appearance: grossly normal and well kempt Mental Status: mental status grossly normal Speech and movement: Normal speech and movement present Affect: normal affect Attitude: cooperative Thought process: Normal thought process present and not confabulating Thought content: Normal thought content present Insight: Fair insight present (Psych) Judgement: Fair judgement present (Psych) Assessment & Plan Assessment & Plan (1) Epigastric pain: Code(s): R10.13 - Epigastric pain Plan: The pt has been lost to follow up since 2019. She has a history of H pylori erosive gastritis in 2019 and was treated with quadruple therapy and had a subsequent negative H pylori breath test. She fell on her stairs and fractured her right ankle and this needed plates and screws. This was over the winter of 2021/2022. She has been having epigastric to gastric pain over the past year. At first it was intermittent but not it is happening more often and is more painful. It is a dull/aching pain 6-7/10, and it does not seem to matter if she eats of if her stomach is empty. She has a hx of erosive gastritis in 2019 and was on bid protonix, but has not been on this for 3 years. Also, she was on NSAIDS after her ankle fx although not at this time. She is moving her bowels well and not having the cramping pain she had in the past. She is not using Linzess. Will get EGD, HP breath test and restart her bid protonix. ROV 6 weeks. (2) Erosive gastritis: Comment: on 2019 EGD and pt has been off her protonix for 3 years aeb Code(s): K29.60 - Other gastritis without bleeding (3) Chronic idiopathic constipation: Comment: Was on Linzess but this seems to have resolved and she is no longer taking any medications Code(s): K59.04 - Chronic idiopathic constipation (4) H. pylori infection: Comment: On 2019 EGD, treated with quadruple therapy and had subsequent negative breath test Code(s): A04.8 - Other specified bacterial intestinal infections Orders: Orders H Pylori Breath Test Today R10.13 - Epigastric pain EGD with Anaya - GI Use Only Today K29.60 - Other gastritis without bleeding, R10.13 - Epigastric pain Medications: New pantoprazole (Protonix) 40 mg PO BID 30 days 60 tabs 3RF K29.60 - Other gastritis without bleeding, R10.13 - Epigastric pain Discontinued omeprazole Discontinued Reason: Doctor's Order 20 mg PO DAILY 30 days PRN 30 caps 0RF pain Coding Level of Care Code Est Pt Level 4 (98040) Diagnoses Epigastric pain R10.13 Erosive gastritis K29.60 Chronic idiopathic constipation K59.04 H. pylori infection A04.8
[2022-10-12 14:34] VITALS: BP 96/67; PULSE 86; BMI 27.5
== END 2022-10-12 15:25 | disposition home or self-care (01) ==
PROVIDERS: PCP Internal Medicine; Visit Provider Nurse Practitioner
DX: R10.13 Epigastric pain (principal); K29.60 Other gastritis without bleeding; K59.04 Chronic idiopathic constipation; A04.8 Other specified bacterial intestinal infections
CPT/HCPCS: 99214

== ENCOUNTER 2022-10-12 14:23 | Outpatient (REF) | payer OTHER, SELFPAY ==
[2022-10-16 12:42] LABS: H Pylori Breath Test Negative (Negative)
== END 2022-10-12 14:24 | disposition home or self-care (01) ==
LOC: HO.LNP 14:23
PROVIDERS: PCP Internal Medicine; Visit Provider Nurse Practitioner
DX: R10.13 Epigastric pain (principal); K29.60 Other gastritis without bleeding; K59.04 Chronic idiopathic constipation; A04.8 Other specified bacterial intestinal infections
CPT/HCPCS: 83013; 99212

== ENCOUNTER 2022-11-23 14:02 | Outpatient (AMB) | payer OTHER, SELFPAY ==
--- NOTE | 2022-11-23 14:14 | A.OFFVIS_ITS ---
Intake Vital Signs 11/23/22 14:16 Height 5 ft 2 in Weight 146 lb 6.191 oz BMI 26.8 BP 117/75 Blood Pressure Location Lt brachial Position Sitting Pulse 80 Pulse Source Pulse Oximeter Pulse Oximetry (%) 98 Oxygen Delivery Method Room Air Intake Visit Reasons: 6 week follow up Intake Note: Pt presents to the office today for a 6 week follow up. Pt states she is having sharp pain all over her stomach area. Pt denies vomiting and diarrhea but she does state she feels nausea for the past 2 days. Allergies Penicillins Allergy (Severe, Verified 11/23/22 14:18) Anaphylaxis HPI 6 week follow up HPI Details Assessment & Plan (1) Epigastric pain: ?Code(s): R10.13 - Epigastric pain ?Plan: The pt has been lost to follow up since 2019.? She has a history of H pylori erosive gastritis in 2018 and was treated with quadruple therapy and had a subsequent negative H pylori breath test. She fell on her stairs and fractured her right ankle and this needed plates and screws. This was over the winter of 2021/2022. She has been having epigastric to gastric pain over the past year. At first it was intermittent but not it is happening more often and is more painful. It is a dull/aching pain 6-7/10, and it does not seem to matter if she eats of if her stomach is empty. She has a hx of erosive gastritis in 2018 and was on bid protonix, but has not been on this for 3 years. Also, she was on NSAIDS after her ankle fx although not at this time. She is moving her bowels well and not having the cramping pain she had in the past. She is not using Linzess. Will get EGD, HP breath test and restart her bid protonix. ROV 6 weeks. (2) Erosive gastritis: ?Comment: on 2019 EGD and pt has been off her protonix for 3 years aeb ?Code(s): K29.60 - Other gastritis without bleeding (3) Chronic idiopathic constipation: ?Comment: Was on Linzess but this seems to have resolved and she is no longer taking any medications ?Code(s): K59.04 - Chronic idiopathic constipation (4) H. pylori infection: ?Comment: On 2019 EGD, treated with quadruple therapy and had subsequent negative breath test ?Code(s): A04.8 - Other specified bacterial intestinal infections ? ? ? Orders: Orders H Pylori Breath Te st Today R10.13 - Epigastri c pain ? EGD with Anaya - G I Use Only Today K29.60 - Other gas tritis without ble eding, R10.13 - Ep igastric pain ? Medications: New pantoprazole (Prot pavel) 40 mg? PO BID 30 d ays 60 tabs 3RF K29.60 - Other gas tritis without ble eding, R10.13 - Ep igastric pain ? Discontinued omeprazole ?? Disc ontinued Reason:? Doctor's Order 20 mg? PO DAILY 30 days PRN 30 caps 0RF pain ? ? Labs: Laboratory Tests 02/05/20 05:26 Stool H. pylori Ag negative EGD Not yet scheduled Biopsy TODAY'S VISIT Now she is having severe sharp pain that travels all around the abdomen in a path that she traces that follows the colon. She feels she is moving her bowels ok, but only moves them twice a week but that's the way I've always been. In the past we had her on Linzess and it seemed to help, so I will get a CT of the abdomen to r/o any other organ dysfunction or inflammation, and start Linzess 72mcg. Reviewing past CT's she always had a large stool burden (last in 2020) and no other pathology. At the time the CTs were done she presented to the ER and says they treated her with ?morphine and and and antacid. ? And this helped her pain. However this is discovering not what ever the pain pathology is and if it is constipation morphine could potentially worsen it. She also had a small-bowel follow-through study that was normal around the same time. She is taking the pantoprazole twice a day and at least her upper abdominal pain seems to have improved. She is quite eager to get the endoscopy done however I let her know that were very backed up related to everyone coming back after 3 years of COVID. We review her H pylori which was negative so this is not a contributing pathology. In the past her gallbladder was fine without any signs of stones but of course CT will further elucidate this. Return office visit in 1 week check on her response [facility] Medical History Anxiety Fibromyalgia Left arm numbness Surgical History History of ankle surgery Hx of tonsillectomy Family History Father Medical history unknown Mother Medical history unknown Maternal Grandmother Breast cancer Maternal Grandfather No problems noted. Paternal Grandmother No problems noted. 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 Current occupational exposures/hazards: No Cognitive needs: No Hearing needs: No Vision needs: No Review of Systems Const Denies fatigue, Denies fever(s), Denies night sweats, Reports poor appetite and Denies weight loss ENT Reports Normal hearing present, Denies dental pain, Denies dysphagia, Denies hearing loss, Denies mouth pain, Denies odynophagia, Denies throat swelling, Denies tongue swelling and Reports other (Dentition adequate) Card Reports no additional complaints Resp Reports no additional complaints GI Reports abdominal pain, Denies melena, Denies bloating, Denies hematochezia, Reports constipation, Denies GI cramping, Denies dysphagia, Denies excessive flatus, Denies early satiety, Reports heartburn, Denies diarrhea, Denies nausea, Denies odynophagia, Denies vomiting and Denies hematemesis Skin/Breast Denies pruritus, Denies lesions, Denies rash and Denies jaundice Neuro Reports Normal hearing present and Denies Abnormal speech present Endo Denies fatigue Aller/Immun Denies throat swelling and Denies tongue swelling Physical Exam Vital Signs: Last Vital Signs Pulse 80 11/23/22 14:16 BP 117/75 11/23/22 14:16 Pulse Ox 98 11/23/22 14:16 Oxygen Delivery Method Room Air 11/23/22 14:16 BMI result Body Mass Index 26.8 Const General: cooperative, no acute distress, well developed and well groomed Nutritional Appearance: average body habitus and well nourished Orientation/consciousness: oriented to person, oriented to place and oriented to time Limitations: language barrier HEENT Head: Yes normocephalic and Yes atraumatic Eyes General: appearance normal, both eyes and all related structures Pupils: Equal, round and reactive pupils present Neck Neck: Yes normal visual inspection and Yes no lymphadenopathy Thyroid: Thyroid normal Resp Effort & Inspection: normal respiratory effort and able to speak in complete sentences Auscultation: clear to auscultation bilaterally Cardio Rate: regular rate Rhythm: regular rhythm Heart sounds: Normal, physiologic split S2 sound present Peripheral pulses: radial pulses present and posterior tibial pulses present GI Inspection: No distended and No Abdominal panniculus present Palpation (GI): Soft to palpation, Tenderness to palpation present (GI) periumbilically, no guarding, not rigid and No hepatosplenomegaly present Percussion: Yes normal to percussion Auscultation: normal bowel sounds Rectal Exam - Female: deferred Skin General skin exam: no rashes or lesions noted, turgor normal, skin not dry, no jaundice, No spider nevi and no striae Rashes: no rashes Nails: normal Neuro General: oriented to person, oriented to place and oriented to time Cranial nerves: Yes Equal, round and reactive pupils present and Yes Normal hearing present Speech: No Abnormal speech present Extrem General: Yes normal to inspection, No clubbing, No cyanosis and No edema Psych Appearance: grossly normal and well kempt Mental Status: mental status grossly normal Speech and movement: Normal speech and movement present Affect: normal affect Attitude: cooperative Thought process: Normal thought process present and not confabulating Thought content: Normal thought content present Insight: Limited insight present (Psych) Judgement: Limited judgement present (Psych) Assessment & Plan Assessment & Plan (1) Epigastric pain: Code(s): R10.13 - Epigastric pain Plan: EGD Not yet scheduled Biopsy TODAY'S VISIT I let her know that the H pylori is negative Now she is having severe sharp pain that travels all around the abdomen in a path that she traces that follows the colon. She feels she is moving her bowels ok, but only moves them twice a week but that's the way I've always been. In the past we had her on Linzess and it seemed to help, so I will get a CT of the abdomen to r/o any other organ dysfunction or inflammation, and start Linzess 72mcg. Reviewing past CT's she always had a large stool burden (last in 2020) and no other pathology. At the time the CTs were done she presented to the ER and says they treated her with ?morphine and and and antacid. ? And this helped her pain. However this is discovering not what ever the pain pathology is and if it is constipation morphine could potentially worsen it. She also had a small-bowel follow-through study that was normal around the same time. She is taking the pantoprazole twice a day and at least her upper abdominal pain seems to have improved. She is quite eager to get the endoscopy done however I let her know that were very backed up related to everyone coming back after 3 years of COVID. We review her H pylori which was negative so this is not a contributing pathology. In the past her gallbladder was fine without any signs of stones but of course CT will further elucidate this. Return office visit in 1 week check on her response (2) Erosive gastritis: Comment: on 2018 EGD and pt has been off her protonix for 3 years aeb Code(s): K29.60 - Other gastritis without bleeding (3) Generalized abdominal pain: Code(s): R10.84 - Generalized abdominal pain (4) Chronic idiopathic constipation: Comment: Was on Linzess but this seems to have resolved and she is no longer taking any medications Code(s): K59.04 - Chronic idiopathic constipation Orders: Orders CT abdomen pelvis w IV con 11/23/22 R10.84 - Generalized abdominal pain Medications: New linaclotide (Linzess) 72 mcg PO QAM 30 caps 3RF K59.04 - Chronic idiopathic constipation Coding Level of Care Code Est Pt Level 3 (92897) Diagnoses Epigastric pain R10.13 Erosive gastritis K29.60 Generalized abdominal pain R10.84 Chronic idiopathic constipation K59.04
[2022-11-23 14:16] VITALS: BP 117/75; PULSE 80; O2SAT 98; BMI 26.8
== END 2022-11-23 14:49 | disposition home or self-care (01) ==
PROVIDERS: PCP Internal Medicine; Visit Provider Nurse Practitioner
DX: R10.13 Epigastric pain (principal); K29.60 Other gastritis without bleeding; R10.84 Generalized abdominal pain; K59.04 Chronic idiopathic constipation
CPT/HCPCS: 99213

== ENCOUNTER → 2022-11-23 14:02 | Outpatient (BNVA) | payer OTHER, SELFPAY | PROVIDERS: PCP Internal Medicine; Visit Provider Nurse Practitioner | DX: K29.60 Other gastritis without bleeding (principal); K59.04 Chronic idiopathic constipation; R10.13 Epigastric pain; R10.84 Generalized abdominal pain | CPT/HCPCS: 99212 ==

== ENCOUNTER 2023-01-30 14:03 | Outpatient (REF) | payer OTHER, SELFPAY ==
--- NOTE | ~2023-01-30 | CT_ITS ---
EXAMINATION: CT ABDOMEN AND PELVIS WITH CONTRAST CLINICAL INFORMATION: Generalized abdominal pain COMPARISON: CT abdomen and pelvis 10/05/2020 and 03/10/2020 TECHNIQUE: Multidetector volumetric images were obtained from the superior aspect of the liver through the pubic symphysis following administration 85 mL of Omnipaque 350 intravenous contrast. Sagittal and coronal reformatted images were obtained on the technologist's workstation. Oral contrast: Yes This CT examination was performed using dose optimization techniques as appropriate, variously including the following: *Automated exposure control *Adjustment of mA and/or kV according to patient size (this includes techniques or standardized protocols for targeted exams where dose is matched to indication/reason for exam; i.e. extremities or head) *Use of iterative reconstruction technique DLP: 527 mGy-cm FINDINGS: LUNG BASES: Unremarkable. ABDOMINAL AND PELVIC WALL: Unremarkable. LIVER AND BILIARY TREE: Benign-appearing hepatic cysts. Low-attenuation liver lesion of the left hepatic lobe measuring 2 cm however present since 2019 not significantly changed in size previously 1.9 cm and previously demonstrated discontinuous peripheral nodular enhancement favoring a hepatic hemangioma. GALLBLADDER: Unremarkable. PANCREAS: Unremarkable. SPLEEN: Unremarkable. ADRENAL GLANDS: Unremarkable. KIDNEYS AND URETERS: No hydronephrosis or nephrolithiasis. GASTROINTESTINAL TRACT: Large and small bowel are unremarkable. Normal appendix. VASCULAR: Unremarkable. LYMPH NODES/PERITONEUM: No lymphadenopathy. FREE FLUID: None. BLADDER: Unremarkable. PELVIC VISCERA: Uterus is retroflexed in position. Intrauterine device in place. OSSEOUS STRUCTURES: Centrally lucent lesion with internal sclerotic margins in the right iliac bone stable since 2020 may reflect benign osseous lesion. CT/CT abdomen pelvis w IV con IMPRESSION: 1. No acute findings to explain symptoms of abdominal pain. 2. Low-attenuation liver lesion of the left hepatic lobe measuring 2 cm present since 2019 not significantly changed in size previously demonstrated discontinuous peripheral nodular enhancement favoring a hepatic hemangioma.
[2023-01-30] MEDS: iohexoL 350 MG/ML 100 ML INFUS..BTL 85 ML IV (16:32)
[2023-01-30] MEDS: Barium Sulfate Oral (Vanilla) 450 ML ORAL.SUSP PO (16:36)
== END 2023-01-30 14:04 | disposition home or self-care (01) ==
LOC: HO.CT 14:03
PROVIDERS: PCP Internal Medicine; Visit Provider Nurse Practitioner
DX: R10.84 Generalized abdominal pain (principal)
CPT/HCPCS: 74177; Q9967

== ENCOUNTER 2023-02-28 16:08 | Outpatient (AMB) | payer OTHER, SELFPAY ==
--- NOTE | 2023-02-28 16:09 | MHC.PC.OV ---
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 Accompanied by: Self / Same As Patient Allergies Penicillins Allergy (Severe, Verified 02/28/23 17:04) Anaphylaxis Medication List - Last Reconciled 02/28/23 by Monalisa Steward MD ibuprofen 800 mg PO Q8H PRN 30 days linaclotide (Linzess) 72 mcg PO QAM lorazepam (Ativan) 0.5 mg PO BEDTIME PRN 30 days pantoprazole (Protonix) 40 mg PO BID 30 days Tobacco use date assessed: 08/30/22 Dental Screening Dental Screen Date: 02/28/23 Did you have a dental visit in the last 12 months?: Yes Did you have a dental problem in the last 6 months where you did not have access to dental care?: No Was dental information given to patient?: Patient has dentist HPI HPI Comments History of Present Illness Details This is a 42-year-old female that comes for her physical exam. Mammogram was done last year at [facility] but I have no records. Pap smear was also done last year at [facility]. Denies any chest pain or shortness of breath. [facility] Medical History Anxiety Left arm numbness Fibromyalgia Surgical History History of ankle surgery Hx of tonsillectomy Family History (Updated 02/28/23 @ 17:09 by Monalisa Steward MD) Father Essential hypertension Mother Essential hypertension Maternal Grandmother Breast cancer Alzheimer's dementia Maternal Grandfather No problems noted. Paternal Grandmother No problems noted. 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 Tristen Villafana, Michelle Hastings, Celestino Cisneros and colleagues, with an educational sarah from [employer]. Review of Systems Const All systems reviewed & are unremarkable except as noted in HPI and below Eyes Reports no additional complaints, Denies change in vision and Denies other visual disturbances Card Denies chest pain at rest, Denies chest pain with activity, Denies edema, Denies irregular heart rhythm, Denies claudication, Denies dyspnea, Denies dyspnea on exertion, Denies orthopnea, Denies paroxysmal nocturnal dyspnea and Denies slow heart rate Resp Denies cough, Denies dyspnea and Denies dyspnea on exertion GI Denies abdominal pain, Denies change in bowel habits, Denies excessive flatus, Denies nausea and Denies vomiting Denies urinary incontinence, Denies urinary hesitancy and Denies urinary urgency Musc Denies abnormal gait, Denies atrophy, Denies deformity and Denies limited range of motion Skin/Breast Denies bleeding lesions, Denies changing lesions and Denies rash Neuro Denies abnormal gait and Denies lack of coordination Physical exam (Primary Care) Vital Signs: Last Vital Signs BP 118/80 02/28/23 16:10 BMI result Body Mass Index 27.8 Tobacco/Smoking Status: Tobacco use Status Tobacco use date assessed 08/30/22 02/28/23 16:11 Patient Tobacco Use Status Never used Tobacco 02/28/23 16:11 e-Cigarette/Vaping Use Never Used 02/28/23 16:11 Thrive Assessment: Date of Thrive Assessment Date Thrive assessed 08/30/22 02/28/23 16:11 Const Orientation/consciousness: patient oriented x3 HENMT Head: Yes normal to inspection, Yes normocephalic and Yes atraumatic Ears: external ears normal Mouth: lip normal Eyes General: appearance normal, both eyes and all related structures Eyelids: Yes eyelids normal Conjunctivae: conjunctivae normal Neck Neck: Yes normal visual inspection and Yes supple Resp Effort & Inspection: normal respiratory effort Auscultation: clear to auscultation bilaterally Cardio Jugular venous distension: no JVD Rate: regular rate Rhythm: regular rhythm Heart sounds: S1 normal heart sound present and S2 normal heart sound present GI Inspection: Yes normal to inspection Palpation (GI): Soft to palpation and nontender Auscultation: normal bowel sounds Skin General skin exam: no rashes or lesions noted Neuro General: patient oriented x3 and no focal motor deficits Extrem General: Yes full ROM Psych Appearance: grossly normal Office Procedures Flu Questionnaire Does the patient have a severe egg allergy?: No Immunizations flu vacc [id number] 6mos up(PF) 60 mcg(15 mcgx4)/0.5 mL IM syringe Performing Provider: Monalisa Steward MD Performing Location: [facility] Documented (not given) by: BOB Peterson on 02/28/23 17:16 Reason Not Given: Patient Refused Assessment and Plan Assessment & Plan (1) Physical exam: Code(s): Z00.00 - Encounter for general adult medical examination without abnormal findings Plan: Repeat in a year. Orders: Orders Lipid Panel Today Z00.00 - Encounter for general adult medical examination without abnormal findings Comprehensive [place]. Panel Fast Today Z00.00 - Encounter for general adult medical examination without abnormal findings Influenza [id number] Immunization Today Z23 - Encounter for immunization Vitamin D 25-OH Total Today E55.9 - Vitamin D deficiency, unspecified Medications: New amitriptyline 10 mg PO BEDTIME 90 tabs 0RF 90 days Coding Level of Care Code Est Pt Prev Care 40-64y(20375) Diagnoses Physical exam Z00.00 Time Spent (min) 32
[2023-02-28 16:10] VITALS: BP 118/80; BMI 27.8
== END 2023-02-28 17:16 | disposition home or self-care (01) ==
PROVIDERS: Visit Provider Internal Medicine
DX: Z00.00 Encounter for general adult medical examination without abnormal findings (principal)
CPT/HCPCS: 99396

== ENCOUNTER 2023-07-28 14:34 | Outpatient (AMB) | payer OTHER, SELFPAY ==
--- NOTE | 2023-07-28 14:36 | A.OFFVIS_ITS ---
Vital Signs 07/28/23 14:37 Height 5 ft 2 in Weight 158 lb 4.67 oz BMI 28.9 Intake Visit Reasons: follow up CT scan PT N/S last 2 appt Intake Note: Will returns today for follow up of CT and abd pain. CC: Patient c/o feeling up quickly after eating and having abdominal pain. Denies other GI symptoms. Invisible Braces Orthodontist Required: No Accompanied by: Self / Same As Patient Allergies Penicillins Allergy (Severe, Verified 07/28/23 14:41) Anaphylaxis HPI HPI follow up CT scan PT N/S last 2 appt: Details: Assessment & Plan (1) Epigastric pain: Code(s): R10.13 - Epigastric pain Plan: I let her know that the H pylori is negative Now she is having severe sharp pain that travels all around the abdomen in a path that she traces that follows the colon. She feels she is moving her bowels ok, but only moves them twice a week but that's the way I've always been. In the past we had her on Linzess and it seemed to help, so I will get a CT of the abdomen to r/o any other organ dysfunction or inflammation, and start Linzess 72mcg. Reviewing past CT's she always had a large stool burden (last in 2020) and no other pathology. At the time the CTs were done she presented to the ER and says they treated her with ?morphine and and and antacid. ? And this helped her pain. However this is discovering not what ever the pain pathology is and if it is constipation morphine could potentially worsen it. She also had a small-bowel follow-through study that was normal around the same time. She is taking the pantoprazole twice a day and at least her upper abdominal pain seems to have improved. She is quite eager to get the endoscopy done however I let her know that were very backed up related to everyone coming back after 3 years of COVID. We review her H pylori which was negative so this is not a contributing pathology. In the past her gallbladder was fine without any signs of stones but of course CT will further elucidate this. Return office visit in 1 week check on her response (2) Erosive gastritis: Comment: on 2018 EGD and pt has been off her protonix for 3 years aeb Code(s): K29.60 - Other gastritis without bleeding (3) Generalized abdominal pain: Code(s): R10.84 - Generalized abdominal pain (4) Chronic idiopathic constipation: Comment: Was on Linzess but this seems to have resolved and she is no longer taking any medications Code(s): K59.04 - Chronic idiopathic constipation Orders: Orders CT abdomen pelvis w IV con 11/23/22 R10.84 - Generalized abdominal pain Medications: New linaclotide (Linzess) 72 mcg PO QAM 30 caps 3RF K59.04 - Chronic idiopathic constipation CT ABDOMEN AND PELVIS FINDINGS: LUNG BASES: Unremarkable. ABDOMINAL AND PELVIC WALL: Unremarkable. LIVER AND BILIARY TREE: Benign-appearing hepatic cysts. Low-attenuation liver lesion of the left hepatic lobe measuring 2 cm however present since 2019 not significantly changed in size previously 1.9 cm and previously demonstrated discontinuous peripheral nodular enhancement favoring a hepatic hemangioma. GALLBLADDER: Unremarkable. PANCREAS: Unremarkable. SPLEEN: Unremarkable. ADRENAL GLANDS: Unremarkable. KIDNEYS AND URETERS: No hydronephrosis or nephrolithiasis. GASTROINTESTINAL TRACT: Large and small bowel are unremarkable. Normal appendix. VASCULAR: Unremarkable. LYMPH NODES/PERITONEUM: No lymphadenopathy. FREE FLUID: None. BLADDER: Unremarkable. PELVIC VISCERA: Uterus is retroflexed in position. Intrauterine device in place. OSSEOUS STRUCTURES: Centrally lucent lesion with internal sclerotic margins in the right iliac bone stable since 2020 may reflect benign osseous lesion. CT/CT abdomen pelvis w IV con IMPRESSION: 1. No acute findings to explain symptoms of abdominal pain. 2. Low-attenuation liver lesion of the left hepatic lobe measuring 2 cm present since 2019 not significantly changed in size previously demonstrated discontinuous peripheral nodular enhancement favoring a hepatic hemangioma. EGD Not yet scheduled Biopsy CORRESPONDENCE On 02/04/23 @ 13:16 Monalisa Urban Wrote To Dumont Will do. On 01/25/23 @ 11:19 Dumont Wrote To Monalisa Urban We have been unable to get in touch with this patient to schedule her EGD. She has an appt with you in February, if she shows up can you advise her to call us? Thank you. July On 01/25/23 @ 09:10 Shelly Galindo Wrote To JuliaJuly (2) We have made several attempts to get ahold of pt 2 calls and a letter mailed to pt , with no response, fwd to pcp On 11/25/22 @ 10:51 Shelly Galindo Wrote To [facility] lvm for pt to cb. ADDED TO SPREAD SHEET. Shelly Galindo completed item. On 11/23/22 @ 14:37 Alyse Dumont Wrote To [facility] as above TODAY'S VISIT PATIENT HAS BEEN LOST TO FOLLOW-UP SINCE 11/2022 [facility]#[id number] She is no longer taking the Linzess or the pantoprazole. She feels that the pantoprazole was not helping her pain. She has FMS as well. She IS having a lot of bloating with early satiety. She is concerned regarding thyroid as both of her sisters suffer hypothyroid. The pain is not all of the time but when it comes it is in the gastric area and is 10/10 and will put her in a position. It is an aching/dull pain. She has a hx of erosive gastritis in the past on EGD. I will walk her down to speak with the schedulers. I think will do a trial of dicyclomine to see if the pain is actually bowel mediated since it does tend to radiate periumbilically as well. I really doubt the wisdom of her stopping the pantoprazole given her history of erosive gastritis but at this point will wait until after the EGD to make a determination. after EGD. [facility] Medical History Anxiety Left arm numbness Fibromyalgia Surgical History History of ankle surgery Hx of tonsillectomy Family History (Updated 02/28/23 @ 17:09 by Monalisa Steward MD) Father Essential hypertension Mother Essential hypertension Maternal Grandmother Breast cancer Alzheimer's dementia Maternal Grandfather No problems noted. Paternal Grandmother No problems noted. 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 Current occupational exposures/hazards: No Cognitive needs: No Hearing needs: No Vision needs: No Review of Systems Const Reports fatigue, Denies fever(s), Denies night sweats, Denies poor appetite, Reports weight gain and Denies weight loss ENT Reports Normal hearing present, Denies dental pain, Denies dysphagia, Denies hearing loss, Denies mouth pain, Denies odynophagia, Denies throat swelling, Denies tongue swelling and Reports other (Dentition adequate) Card Reports no additional complaints Resp Reports no additional complaints GI Details: Reports abdominal pain, Denies melena, Reports bloating, Denies hematochezia, Denies constipation, Denies GI cramping, Denies dysphagia, Denies excessive flatus, Denies early satiety, Denies heartburn, Denies diarrhea, Denies nausea, Denies odynophagia, Denies vomiting and Denies hematemesis Skin/Breast Denies pruritus, Denies lesions, Denies rash and Denies jaundice Neuro Reports Normal hearing present and Denies Abnormal speech present Endo Reports fatigue Aller/Immun Denies throat swelling and Denies tongue swelling Physical Exam Vital Signs: BMI result Body Mass Index 28.9 Const General: cooperative, no acute distress, well developed and well groomed Nutritional Appearance: average body habitus and well nourished Orientation/consciousness: oriented to person, oriented to place and oriented to time Limitations: No language barrier HEENT Head: Yes normocephalic and Yes atraumatic Eyes General: appearance normal, both eyes and all related structures Pupils: Equal, round and reactive pupils present Neck Neck: Yes normal visual inspection and Yes no lymphadenopathy Thyroid: Thyroid normal Resp Effort & Inspection: normal respiratory effort and able to speak in complete sentences Auscultation: clear to auscultation bilaterally Cardio Rate: regular rate Rhythm: regular rhythm Heart sounds: Normal, physiologic split S2 sound present Peripheral pulses: radial pulses present and posterior tibial pulses present GI Inspection: No distended and No Abdominal panniculus present Palpation (GI): Soft to palpation, nontender, no guarding, not rigid and No hepatosplenomegaly present Percussion: Yes normal to percussion Auscultation: normal bowel sounds Rectal Exam - Female: deferred Skin General skin exam: no rashes or lesions noted, turgor normal, skin not dry, no jaundice, No spider nevi and no striae Rashes: no rashes Nails: normal Neuro General: oriented to person, oriented to place and oriented to time Cranial nerves: Yes Equal, round and reactive pupils present and Yes Normal hearing present Speech: No Abnormal speech present Extrem General: Yes normal to inspection, No clubbing, No cyanosis and No edema Psych Appearance: grossly normal and well kempt Mental Status: mental status grossly normal Speech and movement: Normal speech and movement present Affect: normal affect Attitude: cooperative Thought process: Normal thought process present and not confabulating Thought content: Normal thought content present Insight: Limited insight present (Psych) Judgement: Limited judgement present (Psych) Results Reviewed Results Reviewed: CT ABDOMEN AND PELVIS 01/30/23? FINDINGS: LUNG BASES: Unremarkable. ABDOMINAL AND PELVIC WALL: Unremarkable. LIVER AND BILIARY TREE: Benign-appearing hepatic cysts. Low-attenuation liver lesion of the left hepatic lobe measuring 2 cm however present since 2019 not significantly changed in size previously 1.9 cm and previously demonstrated discontinuous peripheral nodular enhancement favoring a hepatic hemangioma. GALLBLADDER: Unremarkable. PANCREAS: Unremarkable. SPLEEN: Unremarkable. ADRENAL GLANDS: Unremarkable. KIDNEYS AND URETERS: No hydronephrosis or nephrolithiasis. GASTROINTESTINAL TRACT: Large and small bowel are unremarkable. Normal appendix. VASCULAR: Unremarkable. LYMPH NODES/PERITONEUM: No lymphadenopathy. FREE FLUID: None. BLADDER: Unremarkable. PELVIC VISCERA: Uterus is retroflexed in position. Intrauterine device in place. OSSEOUS STRUCTURES: Centrally lucent lesion with internal sclerotic margins in the right iliac bone stable since 2020 may reflect benign osseous lesion. CT/CT abdomen pelvis w IV con IMPRESSION: 1. No acute findings to explain symptoms of abdominal pain. 2. Low-attenuation liver lesion of the left hepatic lobe measuring 2 cm present since 2019 not significantly changed in size previously demonstrated discontinuous peripheral nodular enhancement favoring a hepatic hemangioma. Assessment & Plan Assessment & Plan (1) Erosive gastritis: Comment: on 2018 EGD and pt has been off her protonix for 3 years aeb Code(s): K29.60 - Other gastritis without bleeding Category: Medical (2) H. pylori infection: Comment: On 2019 EGD, treated with quadruple therapy and had subsequent negative breath test Code(s): A04.8 - Other specified bacterial intestinal infections Category: Medical (3) Chronic idiopathic constipation: Comment: Was on Linzess but this seems to have resolved and she is no longer taking any medications Code(s): K59.04 - Chronic idiopathic constipation Category: Medical (4) Weight gain: Code(s): R63.5 - Abnormal weight gain Category: Medical (5) Fatigue: Code(s): R53.83 - Other fatigue Category: Medical Plan PATIENT HAS BEEN LOST TO FOLLOW-UP SINCE 11/2022 [facility]#[id number] She is no longer taking the Linzess or the pantoprazole. She feels that the pantoprazole was not helping her pain. She has FMS as well. She IS having a lot of bloating with early satiety. She is concerned regarding thyroid as both of her sisters suffer hypothyroid. The pain is not all of the time but when it comes it is in the gastric area and is 10/10 and will put her in a position. It is an aching/dull pain. She has a hx of erosive gastritis in the past on EGD. I will walk her down to speak with the schedulers. I think will do a trial of dicyclomine to see if the pain is actually bowel mediated since it does tend to radiate periumbilically as well. I really doubt the wisdom of her stopping the pantoprazole given her history of erosive gastritis but at this point will wait until after the EGD to make a determination. We review the CT scan and it does not uncover any pathology to explain her pain. She has a doorknob complaint of fatigue and weight gain and says that both of her sisters have thyroid disorder so I have ordered a TSH. after EGD. Orders: Orders TSH reflex Free T4 Today R53.83 - Other fatigue, R63.5 - Abnormal weight gain Medications: New dicyclomine 20 mg PO QID 120 tabs 3RF 30 days On Hold pantoprazole (Protonix) Hold Comment: Doctor's Order 40 mg PO BID 30 days 60 tabs 3RF K29.60 - Other gastritis without bleeding, R10.13 - Epigastric pain linaclotide (Linzess) Hold Comment: Doctor's Order 72 mcg PO QAM 30 caps 3RF K59.04 - Chronic idiopathic constipation Coding Level of Care Code Est Pt Level 3 (57751) Diagnoses Erosive gastritis K29.60 H. pylori infection A04.8 Chronic idiopathic constipation K59.04 Weight gain R63.5 Fatigue R53.83
[2023-07-28 14:37] VITALS: BMI 28.9
== END 2023-07-28 15:23 | disposition home or self-care (01) ==
PROVIDERS: PCP Internal Medicine; Visit Provider Nurse Practitioner
DX: K29.60 Other gastritis without bleeding (principal); A04.8 Other specified bacterial intestinal infections; K59.04 Chronic idiopathic constipation; R63.5 Abnormal weight gain; R53.83 Other fatigue
CPT/HCPCS: 99213

== ENCOUNTER → 2023-07-28 14:34 | Outpatient (BNVA) | payer OTHER, SELFPAY | PROVIDERS: PCP Internal Medicine; Visit Provider Nurse Practitioner ==

== ENCOUNTER 2023-07-28 15:39 | Outpatient (REF) | payer OTHER, SELFPAY ==
[2023-07-28 15:51] LABS: MANUAL DIFF FLAG NO
[2023-07-28 17:55] LABS: Basophils Percent Auto 0.4 % (0-2); Eosinophils Percent Auto 0.4 % (0-4); Hematocrit 41.6 % (37.0-47.0); Hemoglobin 13.8 g/dl (12.0-16.0); Imm Gran Abs Auto 0.03 X10*3/uL (0.00-0.03); Imm Gran Pct Auto 0.3 % (0.0-0.4); Lymphocytes Absolute Auto 2.5 X10*3/uL (1.2-4.9); Lymphocytes Percent Auto 26.1 % (20-40); Mean Corpuscular HGB Conc 33.2 g/dl (31.0-35.0); Mean Corpuscular Hemoglobin 31.4 pg (27.0-33.0); Mean Corpuscular Volume 94.5 fL (80.0-98.0); Mean Platelet Volume 10.1 fL (9.4-12.3); Monocytes Absolute Auto 0.7 X10*3/uL (0.1-1.2); Monocytes Percent Auto 7.3 % (2-11); Neutrophils Absolute Auto 6.3 x10*3/uL (2.0-8.3); Neutrophils Percent Auto 65.5 % (45-73); Platelet Count 329 X10*3/uL (160-400); Red Cell Distribution Width 11.8 % (11.0-16.0); White Blood Count 9.6 X10*3/uL (4.8-10.8)
[2023-07-28 17:58] LABS: Appearance Urine Clear; Color Urine Yellow; Glucose Urine UA Negative (Negative); Leukocyte Esterase Urine Negative (Negative); Nitrite Urine Negative (Negative); Specific Gravity - Urine <= 1.005 (1.005-1.025); UMIC TRIGGER UACC YES; Urine Blood Large (3+) (Negative); Urine Ketones Negative (Negative); Urine Protein Negative (Neg-Trace)
[2023-07-28 18:14] LABS: Bacteria Urine None Seen (None Seen); Hyaline Casts Urine 0-2 /LPF (0-2); RBC Urine 0-2 /HPF (0-2); Squamous Epithelial Cell Urine 0-2 /HPF (0-2); WBC Urine 0-5 /HPF (0-5)
[2023-07-28 18:59] LABS: Alanine Aminotransferase 11 U/L (0-31); Albumin Level 4.5 g/dL (3.5-5.0); Alkaline Phosphatase 61 U/L (39-117); Anion Gap 12 (12-20); Aspartate Amino Transferase 16 U/L (5-31); Bilirubin Total 0.6 mg/dL (0.0-1.0); Blood Urea Nitrogen 7 mg/dL (9-16); Calcium 9.4 mg/dL (8.4-10.2); Carbon Dioxide 27 mmol/L (22-29); Chloride 105 mmol/L (96-108); Cholesterol 208 mg/dL (<200); Estimated Glomerular Filt Rate > 60; Glucose Fasting 99 mg/dL (60-99); Glucose Random 99 mg/dL (60-115); HDL Cholesterol 68 mg/dL (>40); LDL Cholesterol Calculated 125 mg/dL (<100); Potassium 4.1 mmol/L (3.3-5.1); Sodium 140 mmol/L (135-145); Total Protein 7.5 g/dL (6.5-8.0); Triglycerides 76 mg/dL (<150)
[2023-07-28 19:14] LABS: TSH reflex Free T4 0.35 uIU/mL (0.32-4.0); Vitamin D 25-OH Total 22.1 ng/mL (>30)
== END 2023-07-28 15:40 | disposition home or self-care (01) ==
LOC: HO.LAB 15:39
PROVIDERS: PCP Internal Medicine; Visit Provider Nurse Practitioner
DX: Z00.00 Encounter for general adult medical examination without abnormal findings (principal); R59.1 Generalized enlarged lymph nodes; E55.9 Vitamin D deficiency, unspecified; R10.13 Epigastric pain; K29.60 Other gastritis without bleeding; R10.84 Generalized abdominal pain; K59.04 Chronic idiopathic constipation; A04.8 Other specified bacterial intestinal infections; R63.5 Abnormal weight gain; R53.83 Other fatigue; R30.0 Dysuria
CPT/HCPCS: 36415; 80053; 80061; 81001; 82306; 84443; 85025; 99212

== ENCOUNTER 2023-08-14 15:44 | Outpatient (AMB) | payer OTHER, SELFPAY ==
[2023-08-14 15:48] VITALS: BP 112/70; BMI 28.7
--- NOTE | 2023-08-14 15:48 | MHC.PC.OV ---
Vital Signs 08/14/23 15:48 Height 5 ft 2 in Weight 157 lb BMI 28.7 BP 112/70 Blood Pressure Location Lt brachial Position Sitting Intake Visit Reasons: Anxiety, ? toe nail fungus Intake Note: Patient here for Anxiety, ? 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: No Accompanied by: Child Allergies Penicillins Allergy (Severe, Verified 08/14/23 16:03) Anaphylaxis Medication List - Last Reconciled 08/14/23 by Monalisa Steward MD amitriptyline 10 mg PO BEDTIME 90 days ashwabrendadha root extract 300 mg PO BID bisacodyl (Dulcolax (bisacodyl)) 20 mg (4 x 5 mg) PO ONCE 1 day cholecalciferol (vitamin D3) 25 mcg PO DAILY 90 days dicyclomine 20 mg PO QID 30 days linaclotide (Linzess) 72 mcg PO QAM lorazepam (Ativan) 0.5 mg PO BEDTIME PRN 30 days mecobalamin (vitamin B12) 1,000 mcg PO DAILY pantoprazole (Protonix) 40 mg PO BID 30 days polyethylene glycol 3350 (Miralax) 238 grams PO ONCE 1 day scopolamine base 1 patch transdermal Q3D PRN 7 days turmeric-turmeric ext-pepper 500-3 mg 1 cap PO DAILY Tobacco use date assessed: 08/14/23 Dental Screening Dental Screen Date: 08/14/23 Did you have a dental visit in the last 12 months?: Yes Did you have a dental problem in the last 6 months where you did not have access to dental care?: No Was dental information given to patient?: Patient has dentist HPI HPI Comments History of Present Illness Details This is a 42-year-old female with moderate recurrent major depression, anxiety, insomnia and onychomycosis that comes today complaining of difficulty maintaining sleep, more depression and anxiety. I will restart her on amitriptyline 10 mg at bedtime for fibromyalgia, depression and insomnia. For the anxiety she says that lorazepam works only for few hours and I will change it to clonazepam. I made her aware that lorazepam and clonazepam can both cause dementia. She has onychomycosis in a toenail and I will start her on terbinafine. Liver enzymes were done and were normal. [facility] Medical History (Updated 08/14/23 @ 16:11 by Monalisa Steward MD) Anxiety Left arm numbness Fibromyalgia Surgical History History of ankle surgery Hx of tonsillectomy Family History Father Essential hypertension Mother Essential hypertension Maternal Grandmother Breast cancer Alzheimer's dementia Maternal Grandfather No problems noted. Paternal Grandmother No problems noted. 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 1. Little interest or pleasure in doing things: several days 2. Feeling down, depressed, or hopeless: more than half the days 3. Trouble falling or staying asleep, or sleeping too much: nearly every day 4. Feeling tired or having little energy: nearly every day 5. Poor appetite or overeating: not at all 6. Feeling bad about yourself - or that you are a failure or have let yourself or your family down: not at all 7. Trouble concentrating on things, such as reading the newspaper or watching television: not at all 8. Moving or speaking so slowly that other people could have noticed. Or the opposite - being so fidgety or restless that you have been moving around a lot more than usual: not at all 9. Thoughts that you would be better off or of hurting yourself in some way: not at all Total score: 9 Depression Screening Interpretation: Positive Depression Screening Follow-up: Existing condition and New Medication prescribed Depression Screening Done: Yes 28223 - PHQ-9 Billing: Yes Source: Developed by Drs. Tristen Villafana, Michelle Hastings, Celestino Cisneros and colleagues, with an educational sarah from [employer]. Thrive Questionnaire Date Thrive assessed: 08/14/23 I am a: Patient What is your living situation today?: I have a steady place to live Within the past 12 months, did the food you bought not last and you didn't have the money to get more?: Never true Within the past 12 months, did you worry whether your food would run out before you got money to buy more?: Never true Do you have trouble paying for medicines?: No Do you have trouble getting transportation to medical appointments?: No Do you have trouble paying your heating and electricity bill?: No Do you have trouble taking care of your child, family member or friend?: No Do you have trouble with day-to-day activities such as bathing, preparing meals, shopping, managing finances, etc.?: No Are you currently unemployed and looking for a job?: No Are you interested in more education?: No Please select the resources that you would like help with: None Currently or been in a relationship where the following occur: no concerns reported THRIVE Score: 0 AUDIT C Alcohol Use Questionnaire (AUDIT-C) 1. How often do you have a drink containing alcohol?: Monthly or less 2. How many drinks containing alcohol do you have on a typical day when you are drinking?: 1 or 2 3. How often do you have six or more drinks on one occasion?: Never Total Score: 1 Score Reviewed/Action Taken: Yes (reviewed, no action needed) ELVI-7 AMB Questionnaire ELVI-7 Date ELVI - 7 assessed: 08/14/23 Feeling nervous, anxious, or on edge: 3 = Nearly every day Not being able to stop or control worryin = More than half the days Worrying too much about different things: 3 = Nearly every day Trouble relaxin = Nearly every day Being so restless that it is hard to sit still: 1 = Several days Becoming easily annoyed or irritable: 2 = More than half the days Feeling afraid as if something awful might happen: 3 = Nearly every day Total ELVI-7 score (0-4 normal; 5-9 mild; 10-14 moderate; 15-21 severe): 17 Source: Developed by Drs. Tristen Villafana, Michelle Hastings, Celestino Cisneros and colleagues, with an educational sarah from [employer]. ELVI-7 Assessment Billing ELVI-7 Assessment Tool: ELVI-7 Assessment 73683 Physical exam (Primary Care) Vital Signs: Last Vital Signs BP 112/70 08/14/23 15:48 BMI result Body Mass Index 28.7 Tobacco/Smoking Status: Tobacco use Status Tobacco use date assessed 08/14/23 08/14/23 15:57 Patient Tobacco Use Status Never used Tobacco 08/14/23 15:57 e-Cigarette/Vaping Use Never Used 08/14/23 15:57 PHQ-9: PHQ-9 Score PHQ-9: Total score 9 08/14/23 16:13 Depression Screening Interpretation: Positive Depression Screening Follow-up: Existing condition and New Medication prescribed Thrive Assessment: Date of Thrive Assessment Date Thrive assessed 08/14/23 08/14/23 15:57 Currently or been in a relationship where the following occur: no concerns reported Assessment and Plan Assessment & Plan (1) Depression, major, recurrent, moderate: Code(s): F33.1 - Major depressive disorder, recurrent, moderate Plan: Start amitriptyline at bedtime. Declines counseling. (2) Anxiety: Code(s): F41.9 - Anxiety disorder, unspecified Plan: Discontinue lorazepam. Start clonazepam as needed. Declines counseling. (3) Onychomycosis: Code(s): B35.1 - Tinea unguium Plan: Start terbinafine for 90 days. Repeat liver panel after completing terbinafine. (4) Persistent insomnia: Code(s): G47.00 - Insomnia, unspecified Plan: Start amitriptyline at bedtime. Orders: Orders Liver Panel Today B35.1 - Tinea unguium Medications: New clonazepam administer 30 minutes before bedtime 0.5 mg PO BEDTIME 30 tabs 0RF 30 days terbinafine HCl 250 mg PO DAILY 90 tabs 0RF 90 days Refilled amitriptyline 10 mg PO BEDTIME 90 tabs 0RF 90 days Discontinued lorazepam (Ativan) Discontinued Reason: Patient Completed Course 0.5 mg PO BEDTIME 30 days PRN 20 tabs 0RF anxiety Coding Level of Care Code Est Pt Level 4 (63096) Diagnoses Depression, major, recurrent, moderate F33.1 Anxiety F41.9 Onychomycosis B35.1 Persistent insomnia G47.00 Additional Codes ELVI-7 Assessment Billing - ELVI-7 Assessment Tool: ELVI-7 Assessment 68078 ([id number]) Time Spent (min) 25
== END 2023-08-14 16:24 | disposition home or self-care (01) ==
LOC: HO.HMGH 15:44
PROVIDERS: PCP Internal Medicine; Visit Provider Internal Medicine
DX: B35.1 Tinea unguium (principal); G47.00 Insomnia, unspecified; F33.1 Major depressive disorder, recurrent, moderate; F41.9 Anxiety disorder, unspecified
CPT/HCPCS: 96127; 99214

== ENCOUNTER 2024-01-04 08:03 | Day surgery (SDC) | payer OTHER, SELFPAY ==
--- NOTE | 2023-08-15 15:26 | HO.ANESPROP2 ---
HPI - Anesthesia Eval Consult details Narrative: 42yo F for Upper Endoscopy PMFSH Active Problems Active Problems: All Active Problems Onychomycosis (Acute) Fatigue (Acute) Weight gain (Acute) Generalized abdominal pain (Acute) H. pylori infection (Acute) Erosive gastritis (Acute) Epigastric pain (Acute) Head and neck lymphadenopathy (Acute) Plantar fasciitis of right foot (Acute) Status post ORIF of fracture of ankle (Acute) Upper respiratory tract infection (Acute) Depression, major, recurrent, moderate (Acute) Anxiety (Acute) Persistent insomnia (Acute) Physical exam (Acute) Fibromyalgia (Acute) Left arm numbness (Acute) Right lower quadrant abdominal pain (Acute) Chronic idiopathic constipation (Acute) Abdominal pain (Acute) Past Medical History Medical History Anxiety Left arm numbness Fibromyalgia Family History Family History Father Essential hypertension Mother Essential hypertension Maternal Grandmother Breast cancer Alzheimer's dementia Maternal Grandfather No problems noted. Paternal Grandmother No problems noted. 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 Current occupational exposures/hazards: No Cognitive needs: No Hearing needs: No Vision needs: No Meds Allergies Allergy/AdvReac Type Severity Reaction Status Date / Time Penicillins Allergy Severe Anaphylaxis Verified 08/14/23 16:03 Home Medications ?Medication ?Instructions ?Recorded ?Confirmed ?Last Taken ?Type lolaa root extract 300 mg 300 mg PO BID 07/28/23 08/14/23 Unknown History capsule mecobalamin (vitamin B12) 1,000 1,000 mcg PO DAILY 07/28/23 08/14/23 Unknown History mcg lozenges turmeric 500 mg-black pepper 1 cap PO DAILY 07/28/23 08/14/23 Unknown History extract 3 mg capsule Exam Pertinent Lab Results Pertinent Lab Results: Laboratory Tests 07/28/23 15:48 WBC 9.6 Hgb 13.8 Hct 41.6 Plt Count 329 Sodium 140 Potassium 4.1 Chloride 105 Carbon Dioxide 27 BUN 7 L Creatinine 0.85 Assessment and Plan Assessment Anesthesia Assessment: Chart Reviewed Final Anesthetic Review Family History of Problems with Anesthesia: No History of Problems with Anesthesia: No
--- NOTE | 2024-01-02 14:58 | HO.ANESPROP2 ---
Documented by User: Emeli Muse NP 01/02/24 14:58 HPI - Anesthesia Eval Consult details Narrative: 43yo F for Upper Endoscopy PMFSH Active Problems Active Problems: All Active Problems Onychomycosis (Acute) Fatigue (Acute) Weight gain (Acute) Generalized abdominal pain (Acute) H. pylori infection (Acute) Erosive gastritis (Acute) Epigastric pain (Acute) Head and neck lymphadenopathy (Acute) Plantar fasciitis of right foot (Acute) Status post ORIF of fracture of ankle (Acute) Upper respiratory tract infection (Acute) Depression, major, recurrent, moderate (Acute) Anxiety (Acute) Persistent insomnia (Acute) Physical exam (Acute) Fibromyalgia (Acute) Left arm numbness (Acute) Right lower quadrant abdominal pain (Acute) Chronic idiopathic constipation (Acute) Abdominal pain (Acute) Past Medical History Medical History Anxiety Left arm numbness Fibromyalgia Family History Family History Father Essential hypertension Mother Essential hypertension Maternal Grandmother Breast cancer Alzheimer's dementia Maternal Grandfather No problems noted. Paternal Grandmother No problems noted. Family history of problems with anesthesia: No Surgical History Surgical History History of ankle surgery Hx of tonsillectomy History of Problems with Anesthesia: No Social History Social History Housing: House Are you a primary technical healthcare consultant to a significant other at home: No Do you presently have visiting nurse or other home services: No Alcohol intake: current Alcohol intake frequency: a few times a month Patient Tobacco Use Status: Never used Tobacco e-Cigarette/Vaping Use: Never Used Second Hand Smoke Exposure: No Use of substances other than those prescribed or required for medical reasons: Yes Substance Use Frequency: Daily Have you been hit, kicked, punched, or otherwise hurt by someone within the past year? 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 Current occupational exposures/hazards: No Cognitive needs: No Hearing needs: No Vision needs: No Meds Allergies Allergy/AdvReac Type Severity Reaction Status Date / Time Penicillins Allergy Severe Anaphylaxis Verified 08/14/23 16:03 Home Medications ?Medication ?Instructions ?Recorded ?Confirmed ?Last Taken ?Type bruno root extract 300 mg 300 mg PO BID 07/28/23 08/14/23 Unknown History capsule mecobalamin (vitamin B12) 1,000 1,000 mcg PO DAILY 07/28/23 08/14/23 Unknown History mcg lozenges turmeric 500 mg-black pepper 1 cap PO DAILY 07/28/23 08/14/23 Unknown History extract 3 mg capsule Assessment and Plan Assessment Anesthesia Assessment: Chart Reviewed Final Anesthetic Review Family History of Problems with Anesthesia: No History of Problems with Anesthesia: No Documented by User: Carley Montgomery MD 01/04/24 09:25 [facility] Past Medical History Medical History Anxiety Left arm numbness Fibromyalgia Family History Family History Father Essential hypertension Mother Essential hypertension Maternal Grandmother Breast cancer Alzheimer's dementia Maternal Grandfather No problems noted. Paternal Grandmother No problems noted. Surgical History Surgical History History of ankle surgery Hx of tonsillectomy Social History Social History Housing: House Are you a primary technical healthcare consultant to a significant other at home: No Do you presently have visiting nurse or other home services: No Alcohol intake: current Alcohol intake frequency: a few times a month Patient Tobacco Use Status: Never used Tobacco e-Cigarette/Vaping Use: Never Used Second Hand Smoke Exposure: No Use of substances other than those prescribed or required for medical reasons: Yes Substance Use Frequency: Daily Have you been hit, kicked, punched, or otherwise hurt by someone within the past year? 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 Current occupational exposures/hazards: No Cognitive needs: No Hearing needs: No Vision needs: No Meds Allergies Allergy/AdvReac Type Severity Reaction Status Date / Time Penicillins Allergy Severe Anaphylaxis Verified 08/14/23 16:03 Home Medications ?Medication ?Instructions ?Recorded ?Confirmed ?Last Taken ?Type bruno root extract 300 mg 300 mg PO BID 07/28/23 08/14/23 Unknown History capsule mecobalamin (vitamin B12) 1,000 1,000 mcg PO DAILY 07/28/23 08/14/23 Unknown History mcg lozenges turmeric 500 mg-black pepper 1 cap PO DAILY 07/28/23 08/14/23 Unknown History extract 3 mg capsule Exam Airway Mallampati Class: II TM Dist: >3cm Neck ROM: Full Loose/Missing/Broken Teeth: No Heart: RRR Lungs: CTA Assessment and Plan Assessment Anesthesia Assessment: Anesthesia Plan Discussed Final Anesthetic Review NPO: Yes ASA Class: II Final Preanesthetic Review: Meds/Allgs Chart Reviewed, Consent Obtained/Reviewed and Anes Risks/Benef Reviewed Patient Risk: Low Procedure Risk: Intermediate Anesthetic Plan Anesthetic Plan: MAC: Disposition: Standard PACU
[2024-01-04 08:50] VITALS: BP 110/61; PULSE 68; RESP 16; TEMP 36.1; O2SAT 97; BMI 28.3
[2024-01-04 09:00] LABS: UPreg QC Valid YES; Urine Pregnancy NEGATIVE (NEGATIVE)
[2024-01-04] MEDS: Lactated Ringers 1,000 ML 100 ML IVCONT (09:02)
--- NOTE | 2024-01-04 09:03 | MHC.SHP ---
Pre-Procedural Eval Section A - 24 Hr Update-Section A only Date of Service: 01/04/24 Section B - Complete if H&P > 30 days Chief Complaint: Other specified bacterial intestinal infections Relevant Family History (Specify if Yes): No Relevant Social History: Other (specify) (THC use) Present Medications: see Short Stay Collaborative assessment Medical History: Significant History (Anxiety Left arm numbness Fibromyalgia) History of Previous Operations: Relevant previous surgery/procedure and date(s) ( History of ankle surgery Hx of tonsillectomy) Allergies: Allergies Allergy/AdvReac Type Severity Reaction Status Date / Time Penicillins Allergy Severe Anaphylaxis Verified 08/14/23 16:03 Review of Systems Sugical H&P ROS: Negative: Constitution, Cardiovascular, Respiratory, Neurological, Psychiatric, Hem-Onc, Allergic/Immunologic, Gastrointestinal, Genitourinary, Musculoskeletal, Integumentary, Endocrine and Eyes/Ears/Nose/Throat Exam Surgical H&P Exam: Normal: HEENT, Normal: Heart, Normal: Lungs, Normal: Extremities, Normal: Abdomen, Normal: Skin and Normal: Neurological Plan Diagnosis/Plan: Unchanged I have reviewed the history and physical and performed a pertinent physical examination on my patient. No changes have occurred unless specified. Time Spent With Patient Time: Total time managing care of this patient today ____ minutes.
--- NOTE | 2024-01-04 10:12 | W.PM.OPN ---
Operative Note Operative Note Date of Service: 01/04/24 Narrative: Procedure Description: EGD Indication: epigastric pain Anesthesia: MAC FLEXIBLE TRANSORAL UPPER GASTROINTESTINAL ENDOSCOPY UPPER ENDOSCOPY Consent: Indications for the procedure and potential complications of bleeding, perforation, reaction to medications and missed diagnosis were discussed with the patient and informed consent was obtained. Instrument: Olympus GIF H 190 J mid size upper endoscope Monitoring: Vital signs and clinical assessment, continuous EKG monitoring, Pulse oximetry, Carbon Dioxide monitoring and blood pressure monitoring were done throughout the procedure. Procedure: The patient was placed in the left lateral decubitis position and pre-procedure medications were administered and a bite block was placed. The endoscope was inserted into the mouth and advanced under direct vision to the third part of duodenum. A careful inspection was made as the upper endoscope was withdrawn including a retroflexed examination of the proximal stomach; Findings and interventions are described below. Findings: Larynx:normal Esophagus: GE junction at 37 cm, diaphragm hiatus at 37 cm, streaky erythema, consistent with esophagitis bx taken from GEJ, distal and proximal esophagus Stomach: antral erosions and few superifical ulcers . Biopsies were obtained. Grade 2 flap valve on retroflexed examination of the cardia. Duodenum: Normal bulb and descending duodenum, Intervention: Biopsies as noted above, Impression/Findings: erosive and ulcerative gastritis esophagitis PLAN: check PPI compliance if h pylori pos treat hold on nsaids GERD precautions
[2024-01-04 10:19] VITALS: BP 102/67; PULSE 92; RESP 16; TEMP 36.3; O2SAT 97
[2024-01-04 10:34] VITALS: BP 126/88; PULSE 70; RESP 16; O2SAT 99
== END 2024-01-04 11:20 | disposition home or self-care (01) ==
PROVIDERS: Nurse Practitioner; PCP Internal Medicine; Visit Provider Internal Medicine Gastroenterology
PROC: 0DJ08ZZ Inspection of Upper Intestinal Tract, Via Natural or Artificial Opening Endoscopic (ICD-10-PCS; CPT 43235; principal; 2024-01-04 09:50)
DX: K25.9 Gastric ulcer, unspecified as acute or chronic, without hemorrhage or perforation (principal); K20.80 Other esophagitis without bleeding; K29.60 Other gastritis without bleeding; K59.04 Chronic idiopathic constipation; R63.5 Abnormal weight gain; K44.9 Diaphragmatic hernia without obstruction or gangrene; M79.7 Fibromyalgia; Z79.899 Other long term (current) drug therapy; Z88.0 Allergy status to penicillin
CPT/HCPCS: 43239; 81025; 88305; 88313; 88342; J1100; J1596; J2003; J2250; J2704

== ENCOUNTER → 2024-01-04 08:03 | Outpatient (BNV) | payer OTHER, SELFPAY | PROVIDERS: PCP Internal Medicine; Visit Provider Internal Medicine Gastroenterology | DX: K20.90 Esophagitis, unspecified without bleeding (principal); K25.9 Gastric ulcer, unspecified as acute or chronic, without hemorrhage or perforation; K29.70 Gastritis, unspecified, without bleeding | CPT/HCPCS: 43239 ==

== ENCOUNTER 2024-01-18 09:18 | Outpatient (AMB) | payer OTHER, SELFPAY ==
[2024-01-18 09:20] VITALS: BP 105/58; PULSE 85; BMI 27.8
--- NOTE | 2024-01-18 09:20 | MHC.OFFVIS ---
Vital Signs 01/18/24 09:20 Height 5 ft 2 in Weight 152 lb 1.903 oz BMI 27.8 BP 105/58 L Blood Pressure Location Lt brachial Position Sitting Pulse 85 Intake Visit Reasons: s/p egd/colon Intake Note: Will presents in the office as a follow up EGD and COLO. CC: She did not have the colonoscopy the day of the procedures. No concerns since her procedure. [employer] Required: No Allergies Penicillins Allergy (Severe, Verified 08/14/23 16:03) Anaphylaxis HPI HPI s/p egd/colon: Details: Assessment & Plan (1) Erosive gastritis: Comment: on 2018 EGD and pt has been off her protonix for 3 years aeb Code(s): K29.60 - Other gastritis without bleeding Category: Medical (2) H. pylori infection: Comment: On 2018 EGD, treated with quadruple therapy and had subsequent negative breath test Code(s): A04.8 - Other specified bacterial intestinal infections Category: Medical (3) Chronic idiopathic constipation: Comment: Was on Linzess but this seems to have resolved and she is no longer taking any medications Code(s): K59.04 - Chronic idiopathic constipation Category: Medical (4) Weight gain: Code(s): R63.5 - Abnormal weight gain Category: Medical (5) Fatigue: Code(s): R53.83 - Other fatigue Category: Medical Plan PATIENT HAS BEEN LOST TO FOLLOW-UP SINCE 11/2022 Bulgarian#[id number] She is no longer taking the Linzess or the pantoprazole. She feels that the pantoprazole was not helping her pain. She has FMS as well. She IS having a lot of bloating with early satiety. She is concerned regarding thyroid as both of her sisters suffer hypothyroid. The pain is not all of the time but when it comes it is in the gastric area and is 10/10 and will put her in a position. It is an aching/dull pain. She has a hx of erosive gastritis in the past on EGD. I will walk her down to speak with the schedulers. I think will do a trial of dicyclomine to see if the pain is actually bowel mediated since it does tend to radiate periumbilically as well. I really doubt the wisdom of her stopping the pantoprazole given her history of erosive gastritis but at this point will wait until after the EGD to make a determination. We review the CT scan and it does not uncover any pathology to explain her pain. She has a doorknob complaint of fatigue and weight gain and says that both of her sisters have thyroid disorder so I have ordered a TSH. after EGD. Orders: Orders TSH reflex Free T4 Today R53.83 - Other fatigue, R63.5 - Abnormal weight gain Medications: New dicyclomine 20 mg PO QID 120 tabs 3RF 30 days On Hold pantoprazole (Protonix) Hold Comment: Doctor's Order 40 mg PO BID 30 days 60 tabs 3RF K29.60 - Other gastritis without bleeding, R10.13 - Epigastric pain linaclotide (Linzess) Hold Comment: Doctor's Order 72 mcg PO QAM 30 caps 3RF K59.04 - Chronic idiopathic constipation Laboratory Tests 07/28/23 15:48 TSH 0.35 EGD 01/04/24 Findings: Larynx:normal Esophagus: GE junction at 37 cm, diaphragm hiatus at 37 cm, streaky erythema, consistent with esophagitis bx taken from GEJ, distal and proximal esophagus Stomach: antral erosions and few superifical ulcers . Biopsies were obtained. Grade 2 flap valve on retroflexed examination of the cardia. Duodenum: Normal bulb and descending duodenum, Intervention: Biopsies as noted above, Impression/Findings: erosive and ulcerative gastritis esophagitis PLAN: check PPI compliance if h pylori pos treat hold on nsaids GERD precautions Biopsy Received: 01/04/24 Diagnosis A. Duodenum, biopsy: Small intestinal mucosa within normal limits. B. Stomach, ulcer and erosion, biopsy: Antral-type mucosa with mild chronic inactive inflammation; no Helicobacter organisms seen. C. Stomach, random, biopsy: Oxyntic mucosa with mild chronic inactive inflammation; no Helicobacter organisms seen. D. GE junction, biopsy: - Alcantar esophagus with background moderate chronic, focally active, inflammation. - No dysplasia seen. - Squamous mucosa within normal limits. E. Esophagus, distal, biopsy: - Cardiofundic-type mucosa with mild chronic inactive inflammation; no intestinal metaplasia seen. - Squamous mucosa within normal limits. F. Esophagus, proximal, biopsy: Squamous epithelium within normal limits; no inflammation seen. TODAY'S VISIT Bulgarian #declines She tolerated the procedure well but was very sleepy from the sedation. No change in stomach pain, antral ulcer remain - BUT she was off of her pantoprazole for 3 years!!!! Was mistakenly given dicyclomine because of communication areas after the procedure but we really want her on Carafate to help heal the ulcers. Because she has other medication she is taking we will give her 2 tablets once a day at noon in order to avoid absorption issues with her other therapeutic regimen. She struggles with constipation she was doing well drinking a specialty but I think she needs to reinstate her Linzess at least temporarily to offset the affects the Carafate. She was educated that this could be constipating. She was also educated that given the strong family history of peptic ulcer disease in her grandfather she likely has a genetic component and she would be careful with her stomach going forward. She was educated that things like NSAIDs aspirin spicy foods and even alcohol can frequently cause erosions and ulcers in the stomach under the circumstances and that she should never be without acid reducing therapy such as her pantoprazole going forward. She is currently on clindamycin and Motrin because she has a severe dental infection. Of course were not going to interfere with this therapy but I think it is even more important to protect her stomach with the Carafate temporarily since both of these medications are quite irritating. She also avoids spicy and acid foods such as spaghetti sauces which is reasonable I tell her if it hurts do not do it. But she may be able to reinstate some of these foods later once we get the ulcers healed. Investigation of her thyroid did not uncover any specific reason for her fatigue and weight gain. I encouraged her to continue this discussion with her primary care provider. Return office visit in 8 weeks to assess how she is progressing. [facility] Medical History (Updated 01/18/24 @ 09:37 by ETELVINA Palacios) Generalized abdominal pain Upper respiratory tract infection Physical exam Right lower quadrant abdominal pain Abdominal pain Anxiety Left arm numbness Fibromyalgia Surgical History (Updated 01/18/24 @ 09:37 by ETELVINA Palacios) Status post ORIF of fracture of ankle History of esophagogastroduodenoscopy (EGD) History of ankle surgery Hx of tonsillectomy Family History Father Essential hypertension Mother Essential hypertension Maternal Grandmother Breast cancer Alzheimer's dementia Maternal Grandfather No problems noted. Paternal Grandmother No problems noted. 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 Current occupational exposures/hazards: No Cognitive needs: No Hearing needs: No Vision needs: No Review of Systems Const Reports fatigue, Denies fever(s), Denies night sweats, Reports poor appetite, Reports weight gain and Denies weight loss ENT Reports Normal hearing present, Reports dental pain, Denies dysphagia, Denies hearing loss, Reports mouth pain, Denies odynophagia, Denies throat swelling, Denies tongue swelling and Reports other (Dentition adequate) Card Reports no additional complaints Resp Reports no additional complaints GI Details: Reports abdominal pain, Denies melena, Denies bloating, Denies hematochezia, Denies constipation, Denies GI cramping, Denies dysphagia, Denies excessive flatus, Denies early satiety, Reports heartburn, Denies diarrhea, Denies nausea, Denies odynophagia, Denies vomiting and Denies hematemesis Skin/Breast Denies pruritus, Denies lesions, Denies rash and Denies jaundice Neuro Reports Normal hearing present and Denies Abnormal speech present Endo Reports fatigue Aller/Immun Denies throat swelling and Denies tongue swelling Physical Exam Vital Signs: Last Vital Signs Pulse 85 01/18/24 09:20 BP 105/58 L 01/18/24 09:20 BMI result Body Mass Index 27.8 Const General: cooperative, no acute distress, well developed and well groomed Nutritional Appearance: average body habitus and well nourished Orientation/consciousness: oriented to person, oriented to place and oriented to time Limitations: No language barrier HEENT Head: Yes normocephalic and Yes atraumatic Eyes General: appearance normal, both eyes and all related structures Pupils: Equal, round and reactive pupils present Neck Neck: Yes normal visual inspection and Yes no lymphadenopathy Thyroid: Thyroid normal Resp Effort & Inspection: normal respiratory effort and able to speak in complete sentences Auscultation: clear to auscultation bilaterally Cardio Rate: regular rate Rhythm: regular rhythm Heart sounds: Normal, physiologic split S2 sound present Peripheral pulses: radial pulses present and posterior tibial pulses present GI Inspection: No distended and No Abdominal panniculus present Palpation (GI): Soft to palpation, nontender, no guarding, not rigid and No hepatosplenomegaly present Percussion: Yes normal to percussion Auscultation: normal bowel sounds Rectal Exam - Female: deferred Skin General skin exam: no rashes or lesions noted, turgor normal, skin not dry, no jaundice, No spider nevi and no striae Rashes: no rashes Nails: normal Neuro General: oriented to person, oriented to place and oriented to time Cranial nerves: Yes Equal, round and reactive pupils present and Yes Normal hearing present Speech: No Abnormal speech present Extrem General: Yes normal to inspection, No clubbing, No cyanosis and No edema Psych Appearance: grossly normal and well kempt Mental Status: mental status grossly normal Speech and movement: Normal speech and movement present Affect: normal affect Attitude: cooperative Thought process: Normal thought process present and not confabulating Thought content: Normal thought content present Insight: Fair insight present (Psych) and Limited insight present (Psych) Judgement: Fair judgement present (Psych) and Limited judgement present (Psych) Assessment & Plan Assessment & Plan (1) Erosive gastritis: Comment: on 2018 EGD and pt has been off her protonix for 3 years aeb Code(s): K29.60 - Other gastritis without bleeding Category: Medical (2) Epigastric pain: Code(s): R10.13 - Epigastric pain Category: Medical (3) Chronic idiopathic constipation: Comment: Was on Linzess but this seems to have resolved and she is no longer taking any medications Code(s): K59.04 - Chronic idiopathic constipation Category: Medical (4) Weight gain: Code(s): R63.5 - Abnormal weight gain Category: Medical (5) Fatigue: Code(s): R53.83 - Other fatigue Category: Medical Plan Bulgarian #declines She tolerated the procedure well but was very sleepy from the sedation. No change in stomach pain, antral ulcer remain - BUT she was off of her pantoprazole for 3 years!!!! Was mistakenly given dicyclomine because of communication areas after the procedure but we really want her on Carafate to help heal the ulcers. Because she has other medication she is taking we will give her 2 tablets once a day at noon in order to avoid absorption issues with her other therapeutic regimen. She struggles with constipation she was doing well drinking a specialty but I think she needs to reinstate her Linzess at least temporarily to offset the affects the Carafate. She was educated that this could be constipating. She was also educated that given the strong family history of peptic ulcer disease in her grandfather she likely has a genetic component and she would be careful with her stomach going forward. She was educated that things like NSAIDs aspirin spicy foods and even alcohol can frequently cause erosions and ulcers in the stomach under the circumstances and that she should never be without acid reducing therapy such as her pantoprazole going forward. She is currently on clindamycin and Motrin because she has a severe dental infection. Of course were not going to interfere with this therapy but I think it is even more important to protect her stomach with the Carafate temporarily since both of these medications are quite irritating. She also avoids spicy and acid foods such as spaghetti sauces which is reasonable I tell her if it hurts do not do it. But she may be able to reinstate some of these foods later once we get the ulcers healed. Investigation of her thyroid did not uncover any specific reason for her fatigue and weight gain. I encouraged her to continue this discussion with her primary care provider. Return office visit in 8 weeks to assess how she is progressing. Medications: New sucralfate (Carafate) 2 grams (2 x 1 gram) PO QNOON 60 tabs 3RF K29.60 - Other gastritis without bleeding Discontinued scopolamine base Discontinued Reason: Patient no longer taking 1 patch transdermal Q3D 7 days PRN 4 ea 0RF nausea and vomiting terbinafine HCl Discontinued Reason: Patient no longer taking 250 mg PO DAILY 90 days 90 tabs 0RF dicyclomine Discontinued Reason: Doctor's Order 20 mg PO QID 30 days 120 tabs 3RF Resumed linaclotide (Linzess) 72 mcg PO QAM 30 caps 3RF K59.04 - Chronic idiopathic constipation Coding Level of Care Code Est Pt Level 4 (38799) Diagnoses Erosive gastritis K29.60 Epigastric pain R10.13 Chronic idiopathic constipation K59.04 Weight gain R63.5 Fatigue R53.83 Time Spent (min) 40
== END 2024-01-18 10:07 | disposition home or self-care (01) ==
PROVIDERS: PCP Internal Medicine; Visit Provider Nurse Practitioner
DX: K29.60 Other gastritis without bleeding (principal); R10.13 Epigastric pain; K59.04 Chronic idiopathic constipation; R63.5 Abnormal weight gain; R53.83 Other fatigue
CPT/HCPCS: 99214

== ENCOUNTER → 2024-01-18 09:18 | Outpatient (BNVA) | payer OTHER, SELFPAY | PROVIDERS: PCP Internal Medicine; Visit Provider Nurse Practitioner | DX: K29.60 Other gastritis without bleeding (principal); K59.04 Chronic idiopathic constipation; R63.5 Abnormal weight gain; R53.83 Other fatigue; R10.13 Epigastric pain | CPT/HCPCS: 99212 ==

== ENCOUNTER 2024-03-05 13:49 | Outpatient (AMB) | payer OTHER, SELFPAY ==
[2024-03-05 13:58] VITALS: BP 112/80; BMI 27.8
--- NOTE | 2024-03-05 13:58 | A.OFFPC_ITS ---
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 Accompanied by: Spouse Allergies Penicillins Allergy (Severe, Verified 03/05/24 14:15) Anaphylaxis Medication List - Last Reconciled 03/05/24 by Monalisa Steward MD amitriptyline 10 mg PO BEDTIME 90 days ashmarciedha root extract 300 mg PO BID bisacodyl (Dulcolax (bisacodyl)) 20 mg (4 x 5 mg) PO ONCE 1 day buspirone 10 mg PO TID cholecalciferol (vitamin D3) 25 mcg PO DAILY 90 days clonazepam 0.5 mg PO BEDTIME 30 days linaclotide (Linzess) 72 mcg PO QAM mecobalamin (vitamin B12) 1,000 mcg PO DAILY pantoprazole (Protonix) 40 mg PO BID 30 days sucralfate (Carafate) 2 grams (2 x 1 gram) PO QNOON turmeric-turmeric ext-pepper 500-3 mg 1 cap PO DAILY Tobacco use date assessed: 08/14/23 Dental Screening Dental Screen Date: 08/14/23 HPI HPI Comments History of Present Illness Details The patient is a 43-year-old female presenting for her physical exam with concerns related to anxiety and refractory stomach pain among other issues. She has a history of generalized anxiety disorder for which she is currently taking 10 mg of buspirone thrice daily and clonazepam 0.5 mg at night as needed. She also has been experiencing depression and insomnia; for these, she takes amitriptyline 10 mg nightly. The patient reports continued anxiety and has r ecently begun smoking, despite previous advice to quit. Additionally, she experiences frequent daily stomach pain, which impacts her ability to eat. She was advised to undergo a colonoscopy, but did not do so as she was not prepared for the procedure. She is currently taking pantoprazole for GERD, but not carafate. The patient reports persistent daily fibromyalgia-related body pain. She also mentions muscle discomfort and general bodily pain due to fibromyalgia. She has been on vitamins D and B12, and is concerned about her bone health due to her dietary restrictions. - Mammography performed in July, result s normal. - Patient does not receive annual flu va ccinations. - No record of recent Pap smear but will call for an appointment. - Advised to follow a vegetarian diet coates pplemented with calcium, vitamin B12, and possibly vitamins. - Endoscopy and advice against stress fa ctors discussed. [facility] Medical History (Updated 03/06/24 @ 07:42 by Monalisa Steward MD) Physical exam Generalized abdominal pain Upper respiratory tract infection Right lower quadrant abdominal pain Abdominal pain Anxiety Left arm numbness Fibromyalgia Surgical History Status post ORIF of fracture of ankle History of esophagogastroduodenoscopy (EGD) History of ankle surgery Hx of tonsillectomy Family History Father Essential hypertension Mother Essential hypertension Maternal Grandmother Breast cancer Alzheimer's dementia Maternal Grandfather No problems noted. Paternal Grandmother No problems noted. 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 1. Little interest or pleasure in doing things: not at all 2. Feeling down, depressed, or hopeless: not at all 3. Trouble falling or staying asleep, or sleeping too much: nearly every day 4. Feeling tired or having little energy: nearly every day 5. Poor appetite or overeating: not at all 6. Feeling bad about yourself - or that you are a failure or have let yourself or your family down: not at all 7. Trouble concentrating on things, such as reading the newspaper or watching television: not at all 8. Moving or speaking so slowly that other people could have noticed. Or the opposite - being so fidgety or restless that you have been moving around a lot more than usual: not at all 9. Thoughts that you would be better off or of hurting yourself in some way: not at all Total score: 6 Depression Screening Interpretation: Positive Depression Screening Follow-up: Existing condition and Follow-up Visit Requested Depression Screening Done: Yes 64889 - PHQ-9 Billing: Yes Source: Developed by Drs. Tristen Villafana, Michelle Hastings, Celestino Cisneros and colleagues, with an educational sarah from [employer]. Thrive Questionnaire Date Thrive assessed: 03/05/24 I am a: Patient What is your living situation today?: I have a steady place to live Within the past 12 months, did the food you bought not last and you didn't have the money to get more?: Never true Within the past 12 months, did you worry whether your food would run out before you got money to buy more?: Never true Do you have trouble paying for medicines?: No Do you have trouble getting transportation to medical appointments?: No Do you have trouble paying your heating and electricity bill?: No Do you have trouble taking care of your child, family member or friend?: No Do you have trouble with day-to-day activities such as bathing, preparing meals, shopping, managing finances, etc.?: No Are you currently unemployed and looking for a job?: No Are you interested in more education?: No Please select the resources that you would like help with: None Currently or been in a relationship where the following occur: No concerns reported THRIVE Score: 0 AUDIT C Alcohol Use Questionnaire (AUDIT-C) 1. How often do you have a drink containing alcohol?: Monthly or less 2. How many drinks containing alcohol do you have on a typical day when you are drinking?: 1 or 2 3. How often do you have six or more drinks on one occasion?: Less than monthly Total Score: 2 Score Reviewed/Action Taken: No ELVI-7 AMB Questionnaire ELVI-7 Date ELVI - 7 assessed: 03/05/24 Feeling nervous, anxious, or on edge: 1 = Several days Not being able to stop or control worryin = Not at all Worrying too much about different things: 0 = Not at all Trouble relaxin = Several days Being so restless that it is hard to sit still: 1 = Several days Becoming easily annoyed or irritable: 2 = More than half the days Feeling afraid as if something awful might happen: 0 = Not at all Total ELVI-7 score (0-4 normal; 5-9 mild; 10-14 moderate; 15-21 severe): 5 Source: Developed by Drs. Tristen Villafana, Michelle Hastings, Celestino Cisneros and colleagues, with an educational sarah from [employer]. ELVI-7 Assessment Billing ELVI-7 Assessment Tool: ELVI-7 Assessment 32109 Review of Systems Const All systems reviewed & are unremarkable except as noted in HPI and below Card Denies chest pain at rest, Denies chest pain with activity, Denies edema, Denies irregular heart rhythm, Denies claudication, Denies dyspnea, Denies dyspnea on exertion, Denies orthopnea, Denies paroxysmal nocturnal dyspnea and Denies slow heart rate Resp Denies cough, Denies dyspnea and Denies dyspnea on exertion Neuro Denies lack of coordination Physical exam (Primary Care) Vital Signs: Last Vital Signs BP 112/80 03/05/24 13:58 BMI result Body Mass Index 27.8 Tobacco/Smoking Status: Tobacco use Status Tobacco use date assessed 08/14/23 03/05/24 14:02 Patient Tobacco Use Status Never used Tobacco 03/05/24 14:22 e-Cigarette/Vaping Use Never Used 03/05/24 14:22 PHQ-9: PHQ-9 Score PHQ-9: Total score 6 03/05/24 14:16 Depression Screening Interpretation: Positive Depression Screening Follow-up: Existing condition and Follow-up Visit Requested Thrive Assessment: Date of Thrive Assessment Date Thrive assessed 03/05/24 03/05/24 14:02 Currently or been in a relationship where the following occur: No concerns reported HENMT Head: Yes normal to inspection, Yes normocephalic and Yes atraumatic Ears: external ears normal Resp Effort & Inspection: normal respiratory effort Auscultation: clear to auscultation bilaterally Cardio Jugular venous distension: no JVD Rate: regular rate Rhythm: regular rhythm Heart sounds: S1 normal heart sound present and S2 normal heart sound present GI Inspection: Yes normal to inspection Palpation (GI): Soft to palpation and nontender Auscultation: normal bowel sounds Skin General skin exam: no rashes or lesions noted Neuro General: no focal motor deficits Extrem General: Yes full ROM Psych Appearance: grossly normal Office Procedures Flu Questionnaire Does the patient have a severe egg allergy?: No Immunizations Fluarix Triv 1507-1476 (PF) 45 mcg (15 mcg x 3)/0.5 mL IM syringe Performing Provider: Monalisa Steward MD [facility] Documented (not given) by: BOB Peterson on 03/05/24 14:03 Reason Not Given: Patient Refused Coding Level of Care Code Est Pt Level 4 (03663) Est Pt Prev Care 40-64y(51169) Diagnoses Physical exam Z00.00 Polyarthralgia M25.50 Mood changes R45.86 Depression, major, recurrent, moderate F33.1 Additional Codes ELVI-7 Assessment Billing - ELVI-7 Assessment Tool: ELVI-7 Assessment 73938 ([id number]) PHQ-9 - 88442 - PHQ-9 Billing: Yes ([id number]) Time Spent (min) 35 Assessment & Plan Assessment & Plan (1) Physical exam: Code(s): Z00.00 - Encounter for general adult medical examination without abnormal f indings Category: Medical (2) Polyarthralgia: Code(s): M25.50 - Pain in unspecified joint Category: Medical (3) Mood changes: Code(s): R45.86 - Emotional lability Category: Medical (4) Depression, major, recurrent, moderate: Code(s): F33.1 - Major depressive disorder, recurrent, moderate Category: Medical Plan - Major Depressive Disorder: Continue current medication regimen; assess effectiveness. - Generalized Anxiety Disorder: Continue buspirone and clonazepam for anxiety as needed; discuss potential referral to therapy. - Fibromyalgia: Maintain current treatment with amitriptyline and monitor symptom severity. - Gastroesophageal Reflux Disease GERD): Continue pantoprazole; consider dietary modifications. - Gastrointestinal Symptoms: Reschedule colonoscopy; investigate causes of refractory stomach pain. - Constipation: Suggest dietary adjustments; monitor bowel routines. Patient was informed and verbally consented to the use of an ambient scribe for clinic note documentation during this visit. During the visit, I discussed potential lifestyle changes to manage anxiety, inclining towards counseling interventions. We reviewed her medication regimen and its efficacy for depression and anxiety. I advised scheduling a colonoscopy to investigate her persistent stomach pain as well as the need for incorporation of vitamin B12 due to dietary restrictions, highlighting the importance of vitamins D and B12 to prevent deficiencies. We also discussed the implications of ongoing smoking on her health, particularly concerning her anxiety management. Additionally, I stressed the importance of routine screenings like Pap smear and flu vaccinations to enhance her preventative healthcare. Orders: Orders Influenza [id number] Immunization 03/05/24 Z23 - Encounter for immunization Erythrocyte Sedimentation Rate 03/05/24 M25.50 - Pain in unspecified joint Vitamin D 25-OH Total 03/05/24 E55.9 - Vitamin D deficiency, unspecified, M25.50 - Pain in unspecified joint Rheumatoid Factor 03/05/24 M25.50 - Pain in unspecified joint Vitamin B12 and Folate 03/05/24 E53.8 - Deficiency of other specified B group vitamins Lipid Panel 03/05/24 E78.5 - Hyperlipidemia, unspecified Comprehensive Gardner. Panel Fast 03/05/24 M25.50 - Pain in unspecified joint CRP High Sensitivity 03/05/24 M25.50 - Pain in unspecified joint Complete Blood Count Auto Diff 03/05/24 D64.9 - Anemia, unspecified, M25.50 - Pain in unspecified joint Cyclic Citrullinated Peptide 03/05/24 M25.50 - Pain in unspecified joint MONALISA Reflex Titer and Pattern 03/05/24 M25.50 - Pain in unspecified joint Anti DNA DS Antibody 03/05/24 M25.50 - Pain in unspecified joint Referrals Psychiatry Outpatient Consultation Service R45.86 - Emotional lability Patient Instructions: - Continue current medication regimen as prescribed. - Schedule a colonoscopy at the earliest convenience. - Consider counseling or therapy options for anxiety management. - Monitor dietary intake to ensure sufficient calcium and vitamin B12 levels. - Abstain from smoking and explore smoking cessation resources. - Schedule and obtain annual screenings and vaccinations as applicable. - Return for follow-up based on medical needs or concerns.
== END 2024-03-05 14:29 | disposition home or self-care (01) ==
PROVIDERS: PCP Internal Medicine; Visit Provider Internal Medicine
DX: Z00.00 Encounter for general adult medical examination without abnormal findings (principal); M25.50 Pain in unspecified joint; R45.86 Emotional lability; F33.1 Major depressive disorder, recurrent, moderate

== ENCOUNTER → 2024-03-05 13:49 | Outpatient (BNVA) | payer OTHER, SELFPAY | PROVIDERS: PCP Internal Medicine; Visit Provider Internal Medicine | DX: Z00.00 Encounter for general adult medical examination without abnormal findings (principal); M25.50 Pain in unspecified joint; F33.1 Major depressive disorder, recurrent, moderate; R45.86 Emotional lability | CPT/HCPCS: 90471; 96127; 99396 ==

== ENCOUNTER 2024-03-14 08:56 | Outpatient (REF) | payer OTHER, SELFPAY | END 2024-03-14 08:57 | disposition home or self-care (01) | LOC: HO.LAB 08:56 | PROVIDERS: PCP Internal Medicine; Visit Provider Internal Medicine | DX: Z13.89 Encounter for screening for other disorder (principal) ==

== ENCOUNTER 2024-03-22 10:29 | Outpatient (AMB) | payer OTHER, SELFPAY ==
[2024-03-22 10:32] VITALS: BP 106/65; PULSE 91; BMI 28.5
--- NOTE | 2024-03-22 10:32 | A.OFFVIS_ITS ---
Vital Signs 03/22/24 10:32 Height 5 ft 2 in Weight 155 lb 10.342 oz BMI 28.5 BP 106/65 Blood Pressure Location Lt brachial Position Sitting Pulse 91 Intake Visit Reasons: Peptic ulcer disease 8 WKS F/U Intake Note: Patient in office today in follow up of peptic ulcer. CC: Patient c/o abdominal cramping that used to be in the middle but now is all over her abdomen and it happens about once a week. Patient would like to have colonoscopy done. 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 Accompanied by: Self / Same As Patient Allergies Penicillins Allergy (Severe, Verified 03/22/24 10:36) Anaphylaxis HPI HPI Peptic ulcer disease 8 WKS F/U: Details: Assessment & Plan (1) Erosive gastritis: Comment: on 2018 EGD and pt has been off her protonix for 3 years aeb Code(s): K29.60 - Other gastritis without bleeding Category: Medical (2) Epigastric pain: Code(s): R10.13 - Epigastric pain Category: Medical (3) Chronic idiopathic constipation: Comment: Was on Linzess but this seems to have resolved and she is no longer taking any medications Code(s): K59.04 - Chronic idiopathic constipation Category: Medical (4) Weight gain: Code(s): R63.5 - Abnormal weight gain Category: Medical (5) Fatigue: Code(s): R53.83 - Other fatigue Category: Medical Plan Lao #declines She tolerated the procedure well but was very sleepy from the sedation. No change in stomach pain, antral ulcer remain - BUT she was off of her pantoprazole for 3 years!!!! Was mistakenly given dicyclomine because of co mmunication areas after the procedure but we really want her on Carafate to help heal the ulcers. Because she has other medication she is taking we will give her 2 tablets once a day at noon in order to avoid absorption issues with her other therapeutic regimen. She struggles with constipation she was doing well drinking a specialty but I think she needs to reinstate her Linzess at least temporarily to offset the affects the Carafate. She was educated that this could be constipating. She was also educated that given the strong family history of peptic ulcer disease in her grandfather she likely has a genetic component and she would be careful with her stomach going forward. She was educated that things like NSAIDs aspirin spicy foods and even alcohol can frequently cause erosions and ulcers in the stomach under the circumstances and that she should never be without acid reducing therapy such as her pantoprazole going forward. She is currently on clindamycin and Motrin because she has a severe dental infection. Of course were not going to interfere with this therapy but I think it is even more important to protect her stomach with the Carafate temporarily since both of these medications are quite irritating. She also avoids spicy and acid foods such as spaghetti sauces which is reasonable I tell her if it hurts do not do it. But she may be able to reinstate some of these foods later once we get the ulcers healed. Investigation of her thyroid did not uncover any specific reason for her fatigue and weight gain. I encouraged her to continue this discussion with her primary care provider. Return office visit in 8 weeks to assess how she is progressing. Medications: New sucralfate (Carafate) 2 grams (2 x 1 gram) PO QNOON 60 tabs 3RF K29.60 - Other gastritis without bleeding Discontinued scopolamine base Discontinued Reason: Patient no longer taking 1 patch transdermal Q3D 7 days PRN 4 ea 0RF nausea and vomiting terbinafine HCl Discontinued Reason: Patient no longer taking 250 mg PO DAILY 90 days 90 tabs 0RF dicyclomine Discontinued Reason: Doctor's Order 20 mg PO QID 30 days 120 tabs 3RF Resumed linaclotide (Linzess) 72 mcg PO QAM 30 caps 3RF K59.04 - Chronic idiopathic constipation TODAY'S VISIT She says that the epigastric pain has resolved but she has the pain seems to have moved downward and is mostly now periumbilical. It is not necessarily related to moving her bowels or eating but can come anytime of the day. When it does come ill tend to last as much as half a day and the only thing she can do to relieve it is lay down and fall asleep. She says she is moving her bowels quite well and she has not needed to use Linzess so will take it off her list. There are no other new medicines except for possibly, a turmeric supplement and I did educate her that this can be irritating to the GI system so she may want to stop this for little bit and see how that affects the pain. I think I will give her a trial of dicyclomine because it sounds like she is having an enteritis or small bowel cramping and will see how this works out. Certainly if her symptoms worsen or she develops diarrhea fevers etc. she can call me and or present to an emergency care provider. She is doing well taking her pantoprazole twice a day. She took the sucralfate for a brief time but then stopped it which is completely acceptable especially since this can contribute to constipation. Return office visit in 8 weeks [facility] Medical History H. pylori infection Physical exam Generalized abdominal pain Upper respiratory tract infection Right lower quadrant abdominal pain Abdominal pain Anxiety Left arm numbness Fibromyalgia Surgical History Status post ORIF of fracture of ankle History of esophagogastroduodenoscopy (EGD) History of ankle surgery Hx of tonsillectomy Family History Father Essential hypertension Mother Essential hypertension Maternal Grandmother Breast cancer Alzheimer's dementia Maternal Grandfather No problems noted. Paternal Grandmother No problems noted. 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 Current occupational exposures/hazards: No Cognitive needs: No Hearing needs: No Vision needs: No Review of Systems Const Denies fatigue, Denies fever(s), Denies night sweats, Denies poor appetite and Denies weight loss ENT Reports Normal hearing present, Denies dental pain, Denies dysphagia, Denies hearing loss, Denies mouth pain, Denies odynophagia, Denies throat swelling, Denies tongue swelling and Reports other (Dentition adequate) Card Reports no additional complaints Resp Reports no additional complaints GI Details: Reports abdominal pain, Denies melena, Denies bloating, Denies hematochezia, Denies constipation, Denies GI cramping, Denies dysphagia, Denies excessive flatus, Denies early satiety, Reports heartburn, Denies diarrhea, Denies nausea, Denies odynophagia, Denies vomiting and Denies hematemesis Skin/Breast Denies pruritus, Denies lesions, Denies rash and Denies jaundice Neuro Reports Normal hearing present and Denies Abnormal speech present Endo Denies fatigue Aller/Immun Denies throat swelling and Denies tongue swelling Physical Exam Vital Signs: Last Vital Signs Pulse 91 03/22/24 10:32 BP 106/65 03/22/24 10:32 BMI result Body Mass Index 28.5 Const General: cooperative, no acute distress, well developed and well groomed Nutritional Appearance: average body habitus and well nourished Orientation/consciousness: oriented to person, oriented to place and oriented to time Limitations: No language barrier HEENT Head: Yes normocephalic and Yes atraumatic Eyes General: appearance normal, both eyes and all related structures Pupils: Equal, round and reactive pupils present Neck Neck: Yes normal visual inspection and Yes no lymphadenopathy Thyroid: Thyroid normal Resp Effort & Inspection: normal respiratory effort and able to speak in complete sentences Auscultation: clear to auscultation bilaterally Cardio Rate: regular rate Rhythm: regular rhythm Heart sounds: Normal, physiologic split S2 sound present Peripheral pulses: radial pulses present and posterior tibial pulses present GI Inspection: No distended, Yes Abdominal panniculus present and Yes obesity Palpation (GI): Soft to palpation, nontender, no guarding, not rigid and No hepatosplenomegaly present Percussion: Yes normal to percussion Auscultation: normal bowel sounds Rectal Exam - Female: deferred Skin General skin exam: no rashes or lesions noted, turgor normal, skin not dry, no jaundice, No spider nevi and no striae Rashes: no rashes Nails: normal Neuro General: oriented to person, oriented to place and oriented to time Cranial nerves: Yes Equal, round and reactive pupils present and Yes Normal hearing present Speech: No Abnormal speech present Extrem General: Yes normal to inspection, No clubbing, No cyanosis and No edema Psych Appearance: grossly normal and well kempt Mental Status: mental status grossly normal Speech and movement: Normal speech and movement present Affect: normal affect Attitude: cooperative Thought process: Normal thought process present and not confabulating Thought content: Normal thought content present Insight: Fair insight present (Psych) and Limited insight present (Psych) Judgement: Fair judgement present (Psych) and Limited judgement present (Psych) Assessment & Plan Assessment & Plan (1) Erosive gastritis: Comment: on 2019 EGD and pt has been off her protonix for 3 years aeb Code(s): K29.60 - Other gastritis without bleeding Category: Medical (2) Chronic idiopathic constipation: Comment: Was on Linzess but this seems to have resolved and she is no longer taking any medications Code(s): K59.04 - Chronic idiopathic constipation Category: Medical (3) Periumbilical abdominal pain: Code(s): R10.33 - Periumbilical pain Category: Medical Plan She says that the epigastric pain has resolved but she has the pain seems to have moved downward and is mostly now periumbilical. It is not necessarily related to moving her bowels or eating but can come anytime of the day. When it does come ill tend to last as much as half a day and the only thing she can do to relieve it is lay down and fall asleep. She says she is moving her bowels quite well and she has not needed to use Linzess so will take it off her list. There are no other new medicines except for possibly, a turmeric supplement and I did educate her that this can be irritating to the GI system so she may want to stop this for little bit and see how that affects the pain. I think I will give her a trial of dicyclomine because it sounds like she is having an enteritis or small bowel cramping and will see how this works out. Certainly if her symptoms worsen or she develops diarrhea fevers etc. she can call me and or present to an emergency care provider. She is doing well taking her pantoprazole twice a day. She took the sucralfate for a brief time but then stopped it which is completely acceptable especially since this can contribute to constipation. Return office visit in 8 weeks Medications: New dicyclomine 20 mg PO QID PRN 120 tabs 1RF abdominal pain 30 days Discontinued linaclotide (Linzess) Discontinued Reason: Doctor's Order 72 mcg PO QAM 30 caps 3RF K59.04 - Chronic idiopathic constipation Coding Level of Care Code Est Pt Level 3 (77945) Diagnoses Erosive gastritis K29.60 Chronic idiopathic constipation K59.04 Periumbilical abdominal pain R10.33
== END 2024-03-22 11:11 | disposition home or self-care (01) ==
PROVIDERS: PCP Internal Medicine; Visit Provider Nurse Practitioner
DX: K29.60 Other gastritis without bleeding (principal); K59.04 Chronic idiopathic constipation; R10.33 Periumbilical pain
CPT/HCPCS: 99213

== ENCOUNTER → 2024-03-22 10:29 | Outpatient (BNVA) | payer OTHER, SELFPAY | PROVIDERS: PCP Internal Medicine; Visit Provider Nurse Practitioner | DX: R10.33 Periumbilical pain (principal); K29.60 Other gastritis without bleeding; K59.04 Chronic idiopathic constipation | CPT/HCPCS: 99212 ==

== ENCOUNTER 2024-05-14 15:54 | Emergency (ER) | payer OTHER, SELFPAY | END 2024-05-14 19:16 | disposition left against medical advice (07) | LOC: HO.ED 18:42 | PROVIDERS: Emergency Provider Emergency Medicine; PCP Internal Medicine | DX: I10 Essential (primary) hypertension (principal); Z53.21 Procedure and treatment not carried out due to patient leaving prior to being seen by health care provider ==

== ENCOUNTER 2024-05-27 07:58 | Outpatient (REF) | payer OTHER, SELFPAY ==
[2024-05-27 08:13] LABS: MANUAL DIFF FLAG NO
[2024-05-27 08:51] LABS: Basophils Percent Auto 0.3 % (0-2); Eosinophils Absolute Auto 0.1 X10*3/uL (0.0-0.4); Eosinophils Percent Auto 0.8 % (0-4); Hematocrit 41.5 % (37.0-47.0); Hemoglobin 13.8 g/dl (12.0-16.0); Imm Gran Abs Auto 0.01 X10*3/uL (0.00-0.03); Imm Gran Pct Auto 0.2 % (0.0-0.4); Lymphocytes Absolute Auto 2.9 X10*3/uL (1.2-4.9); Lymphocytes Percent Auto 47.9 % (20-40); Mean Corpuscular HGB Conc 33.3 g/dl (31.0-35.0); Mean Corpuscular Hemoglobin 30.7 pg (27.0-33.0); Mean Corpuscular Volume 92.4 fL (80.0-98.0); Mean Platelet Volume 9.7 fL (9.4-12.3); Monocytes Absolute Auto 0.4 X10*3/uL (0.1-1.2); Monocytes Percent Auto 6.6 % (2-11); Neutrophils Absolute Auto 2.7 x10*3/uL (2.0-8.3); Neutrophils Percent Auto 44.2 % (45-73); Platelet Count 317 X10*3/uL (160-400); Red Blood Count 4.49 X10*6/uL (4.20-5.50); Red Cell Distribution Width 11.7 % (11.0-16.0); White Blood Count 6.1 X10*3/uL (4.8-10.8)
[2024-05-27 09:04] LABS: Appearance Urine Clear; Color Urine Yellow; Glucose Urine UA Negative (Negative); Leukocyte Esterase Urine Negative (Negative); Nitrite Urine Negative (Negative); UMIC TRIGGER UACC YES; Urine Blood Small (1+) (Negative); Urine Ketones Negative (Negative); Urine Protein Negative (Neg-Trace)
[2024-05-27 09:08] LABS: Bacteria Urine None Seen (None Seen); Hyaline Casts Urine 0-2 /LPF (0-2); WBC Urine 0-5 /HPF (0-5)
[2024-05-27 09:29] LABS: Erythrocyte Sedimentation Rate 2 MM/HR (0-20)
[2024-05-27 09:42] LABS: Alanine Aminotransferase 13 U/L (0-31); Alkaline Phosphatase 70 U/L (39-117); Anion Gap 11 (12-20); Aspartate Amino Transferase 17 U/L (5-31); Bilirubin Direct 0.2 mg/dL (0.0-0.5); Bilirubin Total 0.6 mg/dL (0.0-1.0); Blood Urea Nitrogen 11 mg/dL (9-16); Calcium 9.1 mg/dL (8.4-10.2); Carbon Dioxide 26 mmol/L (22-29); Chloride 107 mmol/L (96-108); Cholesterol 217 mg/dL (<200); Estimated Glomerular Filt Rate > 60; Glucose Fasting 87 mg/dL (60-99); HDL Cholesterol 60 mg/dL (>40); LDL Cholesterol Calculated 140 mg/dL (<100); Potassium 3.7 mmol/L (3.3-5.1); Sodium 140 mmol/L (135-145); Triglycerides 88 mg/dL (<150)
[2024-05-27 10:02] LABS: Vitamin D 25-OH Total 20.5 ng/mL (>30)
[2024-05-27 10:07] LABS: Rheumatoid Factor < 13.0 IU/mL (<15.0)
[2024-05-27 10:14] LABS: Folate 12.9 ng/mL (> or = 4.0); Vitamin B12 1004 pg/mL (200-900)
[2024-05-28 11:09] LABS: CRP High Sensitivity 0.8 mg/L
[2024-05-28 13:33] LABS: Cyclic Citrullinated Peptide <16 UNITS
[2024-05-28 16:48] LABS: Anti DNA DS Antibody <1 IU/mL
[2024-05-30 11:14] LABS: Anti Nuclear Antibody Screen NEGATIVE (NEGATIVE)
== END 2024-05-27 07:59 | disposition home or self-care (01) ==
LOC: HO.LAB 07:58
PROVIDERS: PCP Internal Medicine; Visit Provider Internal Medicine
DX: B35.1 Tinea unguium (principal); M25.50 Pain in unspecified joint; E78.5 Hyperlipidemia, unspecified; E55.9 Vitamin D deficiency, unspecified; E53.8 Deficiency of other specified B group vitamins; D64.9 Anemia, unspecified; R30.0 Dysuria
CPT/HCPCS: 36415; 80053; 80061; 80076; 81001; 81003; 82248; 82306; 82607; 82746; 85025; 85652; 86038; 86141; 86200; 86225; 86431

== ENCOUNTER 2024-05-30 12:21 | Emergency (ER) | payer OTHER, SELFPAY ==
--- NOTE | ~2024-05-30 | US_ITS ---
CLINICAL HISTORY: rule out torsion vs cyst US pelvis transabdominal and transvaginal with Doppler Comparison: None Findings: Transabdominal scanning performed for overall anatomy. Transvaginal scanning performed for additional detail. Anteverted uterus is 9.7 cm length. Normal myometrium. No endometrial lesion, obscured by IUD. Right ovary 3.1 x 2.2 x 2.0 cm. Left ovary 3.1 x 1.6 x 1.5 cm. Normal color Doppler with arterial/venous spectral tracing of both ovaries. Trace free fluid. IMPRESSION: 1. Normal pelvic ultrasound with Doppler. No evidence of ovarian torsion. This document has been electronically signed by: Basilio Robert MD on 05/30/2024 20:26:37
--- NOTE | ~2024-05-30 | CT_ITS ---
CLINICAL HISTORY: periumbilical abd pain CT abdomen and pelvis with contrast Comparison: 01/30/2023 Findings: No consolidation or effusion. The gallbladder and solid organs are within normal limits. No renal stones. No bowel obstruction, pneumoperitoneum, or pneumatosis. Pelvic contents unremarkable. Normal appendix. No acute fracture. IMPRESSION: No acute findings. This document has been electronically signed by: Basilio Robert MD on 05/30/2024 18:35:44
[2024-05-30 13:11] VITALS: BP 118/80; PULSE 114; RESP 18; TEMP 36.9; O2SAT 98; BMI 28.3
--- NOTE | 2024-05-30 13:18 | ECG_ITS ---
Test Reason : ABDOMINAL PAIN Blood Pressure : */* mmHG Vent. Rate : 97 BPM Atrial Rate : 97 BPM P-R Int : 142 ms QRS Dur : 82 ms QT Int : 344 ms P-R-T Axes : 66 -8 21 degrees QTcB Int : 436 ms Normal sinus rhythm Normal ECG When compared with ECG of 28-Apr-2017 22:36, No significant change was found Referred By: Mac Pepper Electronically Signed By: Oswald Cleveland
--- NOTE | 2024-05-30 13:19 | ED.GENADULT ---
HPI - General Adult General Chief complaint: Abdominal Pain Stated complaint: abd pain, vomiting, chills Time Seen by Provider: 05/30/24 16:35 Source: patient Mode of arrival: ambulatory Limitations: no limitations History of Present Illness ED Provider: Valente CANNON narrative: For 3-year-old female presenting for abdominal pain. Patient states that she woke up at 04:00 with severe periumbilical abdominal pain that has since radiated to aggressive or abdomen. She also endorses nausea and multiple episodes of nonbloody nonbilious emesis. She now has chills and a headache however has no visual disturbances or neck pain. She denies diarrhea, fevers. LMP was last week. She denies suspicious food intake and has no sick contacts Related Data Home Medications ?Medication ?Instructions ?Recorded ?Confirmed ashwagandha root extract 300 mg 300 mg PO BID 07/28/23 03/05/24 capsule mecobalamin (vitamin B12) 1,000 1,000 mcg PO DAILY 07/28/23 03/05/24 mcg lozenges turmeric 500 mg-black pepper 1 cap PO DAILY 07/28/23 03/05/24 extract 3 mg capsule Previous Rx's ?Medication ?Instructions ?Recorded cholecalciferol (vitamin D3) 25 25 mcg PO DAILY 90 days #90 caps 07/29/23 mcg (1,000 unit) capsule amitriptyline 10 mg tablet 10 mg PO BEDTIME 90 days #90 tabs 08/14/23 clonazepam 0.5 mg tablet 0.5 mg PO BEDTIME 30 days #30 tabs 08/14/23 buspirone 10 mg tablet 10 mg PO TID #90 tabs 10/30/23 sucralfate 1 gram tablet (Carafate) 2 g (2 x 1 gram) PO QNOON #60 tabs 01/18/24 pantoprazole 40 mg tablet,delayed 40 mg PO BID 30 days #60 tabs 02/12/24 release (Protonix) dicyclomine 20 mg tablet 20 mg PO QID PRN abdominal pain 30 03/22/24 days #120 tabs betamethasone dipropionate 0.05 % 1 appl topical DAILY PRN skin 04/05/24 topical ointment irritation 2 weeks #15 grams Allergies Allergy/AdvReac Type Severity Reaction Status Date / Time Penicillins Allergy Severe Anaphylaxis Verified 05/30/24 13:12 Review of Systems Review of Systems: Well-appearing female in mild distress Alert and oriented x4; normal speech and cognition Lungs clear to auscultation bilaterally Normal S1-S2 regular rate rhythm Abdomen is soft, nondistended with diffuse tenderness to palpation PMFSH Past Medical History Medical History H. pylori infection Physical exam Generalized abdominal pain Upper respiratory tract infection Right lower quadrant abdominal pain Abdominal pain Anxiety Left arm numbness Fibromyalgia Surgical History Status post ORIF of fracture of ankle History of esophagogastroduodenoscopy (EGD) History of ankle surgery Hx of tonsillectomy Family History Family History Father Essential hypertension Mother Essential hypertension Maternal Grandmother Breast cancer Alzheimer's dementia Maternal Grandfather No problems noted. Paternal Grandmother No problems noted. 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 Current occupational exposures/hazards: No Cognitive needs: No Hearing needs: No Vision needs: No Physical Exam ED Vital Signs: Vital Signs - 24 hr 05/30/24 13:11 05/30/24 17:27 05/30/24 21:07 Temperature 98.5 F 101.2 F H 99.3 F Pulse Rate 114 H 98 Respiratory Rate 18 18 Blood Pressure 118/80 107/69 Pulse Oximetry 98 99 Oxygen Delivery Method Room Air Room Air 05/30/24 22:40 Temperature 99.3 F Pulse Rate 99 Respiratory Rate 20 Blood Pressure 110/68 Pulse Oximetry Oxygen Delivery Method BMI result Body Mass Index 28.3 Patient appears in mild distress Lungs clear to auscultation bilaterally Normal S1-S2 regular rate rhythm Abdomen is soft, nondistended with diffuse tenderness to palpation Course Course Course Narrative: RME: 43 yold female presents to the ED for epigastric abdominal pain with nuasea. Patient states past medical history of ulcers. Patient denies any vomiting blood or bloody stool. Physical exam positive for epigastric tenderness. Negative for any lower abdominal tenderness on palpation. Labs EKG ordered. Medications Administered Discontinued Medications Generic Name Dose Route Start Last Admin Trade Name Freq PRN Reason Stop Dose Admin Acetaminophen 975 mg 05/30/24 17:29 05/30/24 18:00 Acetaminophen 325 Mg Tablet PO 05/30/24 17:30 975 mg ONCE ONE Administration Sodium Chloride 1,000 mls @ 999 mls/hr 05/30/24 16:45 05/30/24 18:00 Ns IV 05/30/24 17:45 Infused .Q1H1M ANGELINE Infusion Sodium Chloride 1,000 mls @ 999 mls/hr 05/30/24 17:30 05/30/24 20:09 Ns IV 05/30/24 18:30 Infused .Q1H1M ANGELINE Infusion Iohexol 100 ml 05/30/24 17:56 05/30/24 17:59 Iohexol 350 Mg/Ml 100 Ml Infus..Btl IV 05/30/24 17:57 85 ml ONCE ONE Administration Morphine Sulfate 2 mg 05/30/24 17:15 05/30/24 17:25 Morphine Sulfate 2 Mg/Ml Cartridge IVPUSH 05/30/24 17:16 2 mg ONCE ONE Administration Protocol Ondansetron HCl 4 mg 05/30/24 14:43 05/30/24 14:47 Ondansetron Odt 4 Mg Tab.Rapdis TRANSLINGU 05/30/24 14:44 4 mg ONCE ONE Administration Medical Decision Making Medical Decision Making [facility] Narrative: 43-year-old female presenting for abdominal pain, nausea and vomiting -I am concerned for the following; appendicitis, ovarian cyst/ruptured cyst, ectopic, diverticulitis, gastroenteritis, biliary disease -labs and imaging studies ordered Lab and imaging interpretation: -negative viral swab -no signs of ischemia on ECG -UA with > 20 RBCs -negative hCG -electrolytes within normal limits, normal lactate, normal LFTs, normal lipase, stable H&H, normal white count -I reviewed patient's CT and did not appreciate distended gallbladder; no acute findings on radiologist's impression -I do not appreciate large ovarian mass on ultrasound; radiology impression read normal pelvic ultrasound with no evidence of ovarian torsion 5:32pm Patient is febrile; Tylenol ordered On reassessment patient reports improvement in her symptoms. With visualized normal appendix, negative test and no evidence of torsion I am not concerned for severe or life-threatening pathology. Consider admission however patient is not well-appearing and agreeable to discharge. I gave her home care instructions, follow up instructions and return precautions. Patient does smoke marijuana and I had at length discussion with her regarding quitting to which she responded ?if this is because of the weed then I will definitely stop smoking . Patient does not have history of repetitive nausea, vomiting and abdominal pain however I told her that if this does began it may be due to marijuana Lab Data 05/30/24 13:53 05/30/24 13:53 Labs: Lab Results 05/30/24 05/30/24 05/30/24 Range/Units 13:49 13:50 13:53 WBC 7.6 (4.8-10.8) X10*3/uL RBC 4.58 (4.20-5.50) X10*6/uL Hgb 14.3 (12.0-16.0) g/dl Hct 41.7 (37.0-47.0) % MCV 91.0 (80.0-98.0) fL MCH 31.2 (27.0-33.0) pg MCHC 34.3 (31.0-35.0) g/dl RDW 11.8 (11.0-16.0) % Plt Count 271 (160-400) X10*3/uL MPV 9.4 (9.4-12.3) fL Immature Gran % (Auto) 0.3 (0.0-0.4) % Neut % (Auto) 89.4 H (45-73) % Lymph % (Auto) 5.5 L (20-40) % [place] % (Auto) 4.7 (2-11) % Eos % (Auto) 0.0 (0-4) % Baso % (Auto) 0.1 (0-2) % Lymph # (Auto) 0.4 L (1.2-4.9) X10*3/uL [place] # (Auto) 0.4 (0.1-1.2) X10*3/uL Eos # (Auto) 0.0 (0.0-0.4) X10*3/uL Baso # (Auto) 0.0 (0.0-0.2) X10*3/uL Abs Immat Gran (auto) 0.02 (0.00-0.03) X10*3/uL Absolute Neuts (auto) 6.8 (2.0-8.3) x10*3/uL Absolute Nucleated RBC 0.000 (0.0-0.012) X10*3/uL Nucleated RBC % (auto) 0.0 (0.0-0.2) /100WBC PT 11.8 (10.9-12.4) SEC INR 1.0 (0.9-1.1) APTT 27.7 (26.0-36.8) SEC Sodium 138 (135-145) mmol/L Potassium 3.7 (3.3-5.1) mmol/L Chloride 109 H (96-108) mmol/L Carbon Dioxide 24 (22-29) mmol/L Anion Gap 9 L (12-20) BUN 9 (9-16) mg/dL Creatinine 0.66 (0.5-1.4) mg/dL Estim Creat Clear Calc 101.8 Estimated GFR > 60 Random Glucose 113 (60-115) mg/dL Lactic Acid (0.5-2.0) mmol/L Calcium 8.3 L D (8.4-10.2) mg/dL Total Bilirubin 0.6 (0.0-1.0) mg/dL AST 17 (5-31) U/L ALT 16 (0-31) U/L Alkaline Phosphatase 62 (39-117) U/L Troponin I High Sens < 2.7 (<3.5-17.0) ng/L Total Protein 6.7 (6.5-8.0) g/dL Albumin 3.8 (3.5-5.0) g/dL Lipase 20 (8-78) U/L Beta HCG, Quant < 2 mIU/mL Urine Color Urine Appearance Urine pH (5.0-9.0) Ur Specific [place] (1.005-1.025) Urine Protein (Neg-Trace) mg/dL Urine Glucose (UA) (Negative) mg/dL Urine Ketones (Negative) mg/dL Urine Blood (Negative) Urine Nitrite (Negative) Ur Leukocyte Esterase (Negative) Urine RBC (0-2) /HPF Urine WBC (0-5) /HPF Ur Squamous Epith Cells (0-2) /HPF Urine Bacteria (None Seen) Hyaline Casts (0-2) /LPF Urine Test (NEGATIVE) Influenza Type A (PCR) NEGATIVE (Negative) Influenza Type B (PCR) NEGATIVE (Negative) RSV RNA Qual (PCR) NEGATIVE (Negative) SARS-CoV-2 RNA (RT-PCR) NEGATIVE (Negative) S. pyogenes GrpA ALAN Negative (Negative) 05/30/24 05/30/24 Range/Units 14:50 16:50 WBC (4.8-10.8) X10*3/uL RBC (4.20-5.50) X10*6/uL Hgb (12.0-16.0) g/dl Hct (37.0-47.0) % MCV (80.0-98.0) fL MCH (27.0-33.0) pg MCHC (31.0-35.0) g/dl RDW (11.0-16.0) % Plt Count (160-400) X10*3/uL MPV (9.4-12.3) fL Immature Gran % (Auto) (0.0-0.4) % Neut % (Auto) (45-73) % Lymph % (Auto) (20-40) % [place] % (Auto) (2-11) % Eos % (Auto) (0-4) % Baso % (Auto) (0-2) % Lymph # (Auto) (1.2-4.9) X10*3/uL [place] # (Auto) (0.1-1.2) X10*3/uL Eos # (Auto) (0.0-0.4) X10*3/uL Baso # (Auto) (0.0-0.2) X10*3/uL Abs Immat Gran (auto) (0.00-0.03) X10*3/uL Absolute Neuts (auto) (2.0-8.3) x10*3/uL Absolute Nucleated RBC (0.0-0.012) X10*3/uL Nucleated RBC % (auto) (0.0-0.2) /100WBC PT (10.9-12.4) SEC INR (0.9-1.1) APTT (26.0-36.8) SEC Sodium (135-145) mmol/L Potassium (3.3-5.1) mmol/L Chloride (96-108) mmol/L Carbon Dioxide (22-29) mmol/L Anion Gap (12-20) BUN (9-16) mg/dL Creatinine (0.5-1.4) mg/dL Estim Creat Clear Calc Estimated GFR Random Glucose (60-115) mg/dL Lactic Acid 0.7 (0.5-2.0) mmol/L Calcium (8.4-10.2) mg/dL Total Bilirubin (0.0-1.0) mg/dL AST (5-31) U/L ALT (0-31) U/L Alkaline Phosphatase (39-117) U/L Troponin I High Sens (<3.5-17.0) ng/L Total Protein (6.5-8.0) g/dL Albumin (3.5-5.0) g/dL Lipase (8-78) U/L Beta HCG, Quant mIU/mL Urine Color Yellow Urine Appearance Cloudy Urine pH 6.0 (5.0-9.0) Ur Specific [place] 1.025 (1.005-1.025) Urine Protein Negative (Neg-Trace) mg/dL Urine Glucose (UA) Negative (Negative) mg/dL Urine Ketones Trace (Negative) mg/dL Urine Blood Moderate (2+) H (Negative) Urine Nitrite Negative (Negative) Ur Leukocyte Esterase Negative (Negative) Urine RBC >20 H (0-2) /HPF Urine WBC 0-5 (0-5) /HPF Ur Squamous Epith Cells 11-20 (0-2) /HPF Urine Bacteria None Seen (None Seen) Hyaline Casts 0-2 (0-2) /LPF Urine Test NEGATIVE (NEGATIVE) Influenza Type A (PCR) (Negative) Influenza Type B (PCR) (Negative) RSV RNA Qual (PCR) (Negative) SARS-CoV-2 RNA (RT-PCR) (Negative) S. pyogenes GrpA ALAN (Negative) Discharge Plan Discharge Clinical Impression: Nausea & vomiting, Abdominal pain Patient Disposition: Home, Self-Care Instructions: Acute Nausea and Vomiting (ED), Acute Abdominal Pain (ED) Additional Instructions: Please ensure you remain well hydrated. You can take Tylenol and/or ibuprofen for pain management. Please follow up with your primary care provider in the next 24-48 hours for reassessment. If you develop any new or worsening symptoms please return to the emergency department Prescriptions: No Action cholecalciferol (vitamin D3) 25 mcg (1,000 unit) capsule 25 mcg PO DAILY 90 Days Qty: 90 1RF buspirone 10 mg tablet 10 mg PO TID Qty: 90 0RF pantoprazole [Protonix] 40 mg tablet,delayed release (DR/EC) 40 mg PO BID 30 Days Qty: 60 3RF betamethasone dipropionate 0.05 % ointment 1 appl topical DAILY PRN (Reason: skin irritation) 14 Days Qty: 15 0RF amitriptyline 10 mg tablet 10 mg PO BEDTIME 90 Days Qty: 90 0RF clonazepam 0.5 mg tablet 0.5 mg PO BEDTIME 30 Days Qty: 30 0RF Rx Instructions: administer 30 minutes before bedtime ashwagandha root extract 300 mg capsule 300 mg PO BID mecobalamin (vitamin B12) 1,000 mcg lozenge 1,000 mcg PO DAILY Rx Instructions: allow to dissolve in mouth OR may chew lightly before swallowing turmeric-turmeric ext-pepper 500-3 mg capsule 1 cap PO DAILY sucralfate [Carafate] 1 gram tablet 2 g PO QNOON Qty: 60 3RF dicyclomine 20 mg tablet 20 mg PO QID PRN (Reason: abdominal pain) 30 Days Qty: 120 1RF Stand Alone Forms: Work/School Release Interventions: ED Discharge Assessment Last Done: 05/30/24 22:40 Discharge Date/Time: 05/30/24 22:41 Print Language: [place]ese
[2024-05-30 14:00] LABS: MANUAL DIFF FLAG NO
[2024-05-30 14:01] LABS: Basophils Percent Auto 0.1 % (0-2); Hematocrit 41.7 % (37.0-47.0); Hemoglobin 14.3 g/dl (12.0-16.0); Imm Gran Abs Auto 0.02 X10*3/uL (0.00-0.03); Imm Gran Pct Auto 0.3 % (0.0-0.4); Lymphocytes Absolute Auto 0.4 X10*3/uL (1.2-4.9); Lymphocytes Percent Auto 5.5 % (20-40); Mean Corpuscular HGB Conc 34.3 g/dl (31.0-35.0); Mean Corpuscular Hemoglobin 31.2 pg (27.0-33.0); Mean Platelet Volume 9.4 fL (9.4-12.3); Monocytes Absolute Auto 0.4 X10*3/uL (0.1-1.2); Monocytes Percent Auto 4.7 % (2-11); Neutrophils Absolute Auto 6.8 x10*3/uL (2.0-8.3); Neutrophils Percent Auto 89.4 % (45-73); Platelet Count 271 X10*3/uL (160-400); Red Blood Count 4.58 X10*6/uL (4.20-5.50); Red Cell Distribution Width 11.8 % (11.0-16.0); White Blood Count 7.6 X10*3/uL (4.8-10.8)
[2024-05-30 14:08] LABS: Prothrombin Time 11.8 SEC (10.9-12.4)
[2024-05-30 14:10] LABS: Partial Thromboplastin Time 27.7 SEC (26.0-36.8)
[2024-05-30 14:28] LABS: Alanine Aminotransferase 16 U/L (0-31); Albumin Level 3.8 g/dL (3.5-5.0); Alkaline Phosphatase 62 U/L (39-117); Anion Gap 9 (12-20); Aspartate Amino Transferase 17 U/L (5-31); Bilirubin Total 0.6 mg/dL (0.0-1.0); Blood Urea Nitrogen 9 mg/dL (9-16); Calcium 8.3 mg/dL (8.4-10.2); Carbon Dioxide 24 mmol/L (22-29); Chloride 109 mmol/L (96-108); Creatinine Clr Calc Pharmacy 101.8; Estimated Glomerular Filt Rate > 60; Glucose Random 113 mg/dL (60-115); HCG Quantitative < 2 mIU/mL; Lipase 20 U/L (8-78); Potassium 3.7 mmol/L (3.3-5.1); Sodium 138 mmol/L (135-145); Total Protein 6.7 g/dL (6.5-8.0)
[2024-05-30 14:31] LABS: IDNOW Serial# 6674DD1D
[2024-05-30 14:32] LABS: Strep A Nucleic Acid Negative (Negative)
[2024-05-30 14:37] LABS: Influenza A PCR NEGATIVE (Negative); Influenza B PCR NEGATIVE (Negative); Resp Syncy Virus RNA Qual PCR NEGATIVE (Negative); SARS COV2 PCR INHOUSE NEGATIVE (Negative)
[2024-05-30 14:37] LABS: Troponin-I High Sensitivity < 2.7 ng/L (<3.5-17.0)
[2024-05-30] MEDS: Ondansetron ODT 4 MG TAB.RAPDIS TRANSLINGU (14:47)
[2024-05-30 15:00] LABS: Appearance Urine Cloudy; Color Urine Yellow; Glucose Urine UA Negative (Negative); Leukocyte Esterase Urine Negative (Negative); Nitrite Urine Negative (Negative); Specific Gravity - Urine 1.025 (1.005-1.025); UMIC TRIGGER UACC YES; Urine Blood Moderate (2+) (Negative); Urine Ketones Trace mg/dL (Negative); Urine Protein Negative (Neg-Trace)
[2024-05-30 15:01] LABS: UPreg QC Valid YES; Urine Pregnancy NEGATIVE (NEGATIVE)
[2024-05-30 15:54] LABS: Bacteria Urine None Seen (None Seen); Hyaline Casts Urine 0-2 /LPF (0-2); RBC Urine >20 /HPF (0-2); WBC Urine 0-5 /HPF (0-5)
[2024-05-30] MEDS: 0.9 % Sodium Chloride 1,000 ML 999 ML IV ×2 (16:54→18:00)
[2024-05-30 17:13] LABS: Lactic Acid 0.7 mmol/L (0.5-2.0)
[2024-05-30] MEDS: Morphine Sulfate 2 MG/ML CARTRIDGE IVPUSH (17:25)
[2024-05-30 17:27] VITALS: BP 107/69; PULSE 98; RESP 18; TEMP 38.4; O2SAT 99
[2024-05-30] MEDS: iohexoL 350 MG/ML 100 ML INFUS..BTL IV (17:59)
[2024-05-30] MEDS: Acetaminophen 325 MG TABLET 975 MG PO (18:00)
[2024-05-30 21:07] VITALS: TEMP 37.4
--- NOTE | 2024-05-30 22:38 | PC.NURSE ---
reviewed discharge instructions with pt, pt verbalized understanding, no sign of distress, Notified GLENIS De Luna.
[2024-05-30 22:40] VITALS: BP 110/68; PULSE 99; RESP 20; TEMP 37.4
== END 2024-05-30 22:41 | disposition home or self-care (01) ==
PROVIDERS: Physician Assistant; Emergency Provider Student in an Organized Health Care Education/Training Program; PCP Internal Medicine
DX: R11.2 Nausea with vomiting, unspecified (principal); R10.33 Periumbilical pain; Z03.818 Encounter for observation for suspected exposure to other biological agents ruled out
CPT/HCPCS: 0241U; 36415; 74177; 76830; 76856; 80053; 81001; 81003; 81025; 83605; 83690; 84484; 84702; 85025; 85610; 85730; 87651; 93005; 93975; 96361; 96374; 99285; J2270; Q9967

== ENCOUNTER → 2024-05-30 13:18 | Outpatient (BNV) | payer OTHER, SELFPAY | PROVIDERS: Emergency Provider Student in an Organized Health Care Education/Training Program; PCP Internal Medicine; Visit Provider Internal Medicine Cardiovascular Disease | DX: R10.9 Unspecified abdominal pain (principal) | CPT/HCPCS: 93010 ==

== ENCOUNTER → 2024-05-30 17:12 | Outpatient (BNV) | payer OTHER, SELFPAY | PROVIDERS: Emergency Provider Student in an Organized Health Care Education/Training Program; PCP Internal Medicine; Visit Provider Specialist | DX: R10.2 Pelvic and perineal pain (principal) | CPT/HCPCS: 74177; 76830; 76856; 93975 ==

== ENCOUNTER 2024-06-20 13:05 | Outpatient (AMB) | payer OTHER, SELFPAY ==
--- NOTE | 2024-06-20 13:19 | A.OFFPSYCH_ITS ---
Intake Intake Visit Reasons: consultation Telecommunications Analyst Required: No Allergies Penicillins Allergy (Severe, Verified 05/30/24 13:12) Anaphylaxis Medication List - Last Reconciled 06/20/24 by Mary Jasso APRN amitriptyline 10 mg PO BEDTIME 90 days lolaa root extract 300 mg PO BID betamethasone dipropionate 0.05% 1 appl topical DAILY PRN 2 weeks buspirone 10 mg PO TID cholecalciferol (vitamin D3) 25 mcg PO DAILY 90 days clonazepam 0.5 mg PO BEDTIME 30 days dicyclomine 20 mg PO QID PRN 30 days mecobalamin (vitamin B12) 1,000 mcg PO DAILY pantoprazole (Protonix) 40 mg PO BID 30 days sucralfate (Carafate) 2 grams (2 x 1 gram) PO QNOON turmeric-turmeric ext-pepper 500-3 mg 1 cap PO DAILY HPI- Psychiatric Chief Complaint: consultation HPI Narrative: Patient referred by her primary care physician for evaluation of depression and anxiety. Patient's PHQ-9 equals 11 and her G A D 7 equals 7. The patient reports that she is taking buspirone 3 times a day and clonazepam at bedtime she reports that the medication during the daytime is making her too tired she has children at home and she just feels flat and dull she still has anxiety she reports not being able to sleep even with the clonazepam she has started smoking again to cope. She also reports a history of fibromyalgia she is starting therapy again tomorrow at [facility] in [facility] the patient reports little interest and pleasure in doing things she reports feeling down and depressed she has trouble sleeping and staying asleep she has low energy she feels tired she reports poor appetite she reports feeling bad about herself and like a failure. She reports feeling nervous and anxious most days she reports not being able to stop worrying she worries about a variety of things finances health her children. She also reports having trouble relaxing she reports she is in pain every day from fibromyalgia. No SI no HI no evidence of leonela no psychosis Past Psychiatric History: Patient reports she started having anxiety 9 years ago she also has a history of depression 8 years ago she used to see a therapist at [facility] and she saw psychiatrist on zoom in 2019 she has a history of being on Cymbalta in the past Wellbutrin and lorazepam. Subjective Subjective Subjective Medication Compliance: Yes Side effects from medications: No Review of Systems Medical Review of Systems: unchanged Mental Status Exam Mental Status Exam Patient Appearance: Well Grooomed and Appropriate Patient Orientation: Person, Place, Time and Situation Level of Consciousness: Awake, Appropriate and Alert Patient Behavior: Appropriate, Cooperative and Good Eye Contact Mood Description: Appropriate, Depressed and Anxious Affect Description: Depressed and Anxious Patient Cognition Impaired: No Ability to Follow Directions: Good Speech Pattern: Clear Memory Description: Intact Hallucinations: None Delusions: Not Present Thought Process: Intact, Distracted and Rumination Thought Content: positive for Intact Judgement: Good Assessment and Plan Assessment & Plan (1) Depression, major, recurrent, moderate: Status: Acute Code(s): F33.1 - Major depressive disorder, recurrent, moderate (2) ELVI (generalized anxiety disorder): Status: Acute Code(s): F41.1 - Generalized anxiety disorder Plan Patient given instructions to taper the BuSpar by 1 tablet every 7 days until off she is not taking the because she feels it does not work so it was discontinued Start duloxetine 30 mg take 1 capsule daily at bedtime for 7 days and then increase to 2 capsules (60 mg) Med during the day as needed for her anxiety addictive nature lorazepam and to use it as sparingly as possible. Follow-up in 6 weeks Medications: New lorazepam 0.5 mg orally take one at bedtime and may take an additional tablet during the day as needed for severe anxiety PRN; 45 tabs 3RF anxiety duloxetine 30 mg PO DAILY 30 caps 0RF Discontinued clonazepam administer 30 minutes before bedtime Discontinued Reason: Patient no longer taking 0.5 mg PO BEDTIME 30 days 30 tabs 0RF buspirone Discontinued Reason: Patient no longer taking 10 mg PO TID 90 tabs 0RF Counseling and coordination of Care Pt. Self Management counseling: Maintenance-social rhythm, Mod caffeine/ETOH intake and Nutrition education and improvement Medication management counseling: Effectiveness, Side effects, Dosing range, Duration, Drug interaction and Adherence Diagnosis and Prognosis Counseling: Accuracy of diagnosis, Prognosis over time, Impact of diagnosis on life functions, Impact of family relationship, Problematic behaviors secondary to diagnosis and Adequacy of current interventions Details: I spent 70 minutes reviewing the record, seeing the patient and documenting in the medical record. Counseling provided to the patient/caregiver as outlined below. Addressed patient/caregiver concerns regarding current medication regime including effective adherence. Addressed patient/caregiver concerns regarding diagnosis and prognosis including accuracy of diagnosis, prognosis over time, impact of diagnosis. Addressed patient/caregiver concerns regarding impact of recent stressors. [facility] Medical History H. pylori infection Physical exam Generalized abdominal pain Upper respiratory tract infection Right lower quadrant abdominal pain Abdominal pain Anxiety Left arm numbness Fibromyalgia Surgical History Status post ORIF of fracture of ankle History of esophagogastroduodenoscopy (EGD) History of ankle surgery Hx of tonsillectomy Family History Father Essential hypertension Mother Essential hypertension Maternal Grandmother Breast cancer Alzheimer's dementia Maternal Grandfather No problems noted. Paternal Grandmother No problems noted. 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
== END 2024-06-20 13:44 | disposition home or self-care (01) ==
LOC: HO.HOP 13:05
PROVIDERS: PCP Internal Medicine; Visit Provider Clinical Nurse Specialist Psychiatric/Mental Health
DX: F33.1 Major depressive disorder, recurrent, moderate (principal); F41.1 Generalized anxiety disorder
CPT/HCPCS: 90792

== ENCOUNTER → 2024-06-20 13:05 | Outpatient (BNVA) | payer OTHER, SELFPAY | PROVIDERS: PCP Internal Medicine; Visit Provider Clinical Nurse Specialist Psychiatric/Mental Health | DX: F33.1 Major depressive disorder, recurrent, moderate (principal); F41.1 Generalized anxiety disorder | CPT/HCPCS: 90792 ==

== ENCOUNTER → 2024-07-26 14:25 | Outpatient (BNVA) | payer OTHER, SELFPAY | PROVIDERS: PCP Internal Medicine; Visit Provider Nurse Practitioner | DX: R10.33 Periumbilical pain (principal); K59.04 Chronic idiopathic constipation; R53.83 Other fatigue; K29.60 Other gastritis without bleeding | CPT/HCPCS: 99212 ==

== ENCOUNTER 2024-08-01 13:08 | Outpatient (AMB) | payer OTHER, SELFPAY ==
--- NOTE | 2024-08-01 13:18 | MHC.OFFVISPS ---
Intake Intake Visit Reasons: follow up Health And Safety Coordinator Required: No Allergies Penicillins Allergy (Severe, Verified 05/30/24 13:12) Anaphylaxis Medication List - Last Reconciled 08/01/24 by Mary Jasso APRN ascorbic acid (vitamin C) mg PO saydadha root extract 300 mg PO BID betamethasone dipropionate 0.05% 1 appl topical DAILY PRN 2 weeks cholecalciferol (vitamin D3) 25 mcg PO DAILY 90 days dicyclomine 20 mg PO QID PRN 30 days duloxetine 30 mg PO DAILY PRN linaclotide (Linzess) 72 mcg PO QAM lorazepam 0.5 mg orally take one at bedtime and may take an additional tablet during the day as needed for severe anxiety PRN; mecobalamin (vitamin B12) 1,000 mcg PO DAILY pantoprazole (Protonix) 40 mg PO BID 30 days zinc sulfate (Zinc-15) 66 mg PO DAILY HPI- Psychiatric Chief Complaint: follow up HPI Narrative: Pt here for follow up re: depression and anxiety. Pts symptoms worse. pt reports side effect from cymbalta so she stopped it after a week. Reports lorazepam helps without side effects; pt takes 2 benadryl daily at bedtime to sleep and has for years; she has hx of gastric ulcers and bleeding; she reports constipation and starting new med from GI specialist. she has a heavy menstrual period right now after having IUD out. she is very tired, low energy. PHQ9=13 and GAD7=15. Past Psychiatric History: Patient reports she started having anxiety 9 years ago she also has a history of depression 8 years ago she used to see a therapist at [facility] and she saw psychiatrist on [facility] in 2019 she has a history of being on Cymbalta in the past Wellbutrin and lorazepam. Subjective Subjective Subjective Medication Compliance: Yes Side effects from medications: No Review of Systems Medical Review of Systems: unchanged Mental Status Exam Mental Status Exam Patient Appearance: Well Grooomed and Appropriate Patient Orientation: Person, Place, Time and Situation Level of Consciousness: Awake, Appropriate and Alert Patient Behavior: Appropriate Mood Description: Anxious Affect Description: Anxious Patient Cognition Impaired: No Ability to Follow Directions: Good Speech Pattern: Clear Memory Description: Intact Hallucinations: None Delusions: Not Present Thought Process: Intact and Goal Oriented Thought Content: positive for Intact and positive for Goal Oriented Judgement: Good Assessment and Plan Assessment & Plan (1) ELVI (generalized anxiety disorder): Status: Acute Code(s): F41.1 - Generalized anxiety disorder (2) Depression, major, recurrent, moderate: Status: Acute Code(s): F33.1 - Major depressive disorder, recurrent, moderate Plan stop cymbalta start remeron 7.5mg at bedtime take lorazepam 0.5mg BID take one benadryl only for 30 days then stop continue therapy Medications: New mirtazapine 7.5 mg PO BEDTIME 30 tabs 2RF Refilled lorazepam 0.5 mg orally take one at bedtime and may take an additional tablet during the day as needed for severe anxiety PRN; 60 tabs 3RF anxiety Counseling and coordination of Care Pt. Self Management counseling: Exercise, Maintenance-social rhythm, Mod caffeine/ETOH intake, Nutrition education and improvement, Sleep hygiene and General coping skills Medication management counseling: Effectiveness, Side effects, Dosing range, Duration, Drug interaction and Adherence Details-Med Mgmt counseling: discussed risks of benadryl use mcc Diagnosis and Prognosis Counseling: Accuracy of diagnosis, Prognosis over time, Impact of diagnosis on life functions, Impact of family relationship, Problematic behaviors secondary to diagnosis and Adequacy of current interventions Details: I spent 40 minutes reviewing the record, seeing the patient and documenting in the medical record. Counseling provided to the patient/caregiver as outlined below. Addressed patient/caregiver concerns regarding current medication regime including effective adherence. Addressed patient/caregiver concerns regarding diagnosis and prognosis including accuracy of diagnosis, prognosis over time, impact of diagnosis. Addressed patient/caregiver concerns regarding impact of recent stressors. [facility] Medical History H. pylori infection Physical exam Generalized abdominal pain Upper respiratory tract infection Right lower quadrant abdominal pain Abdominal pain Anxiety Left arm numbness Fibromyalgia Surgical History Status post ORIF of fracture of ankle History of esophagogastroduodenoscopy (EGD) History of ankle surgery Hx of tonsillectomy Family History Father Essential hypertension Mother Essential hypertension Maternal Grandmother Breast cancer Alzheimer's dementia Maternal Grandfather No problems noted. Paternal Grandmother No problems noted. 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
== END 2024-08-01 13:36 | disposition home or self-care (01) ==
LOC: HO.HOP 13:08
PROVIDERS: PCP Internal Medicine; Visit Provider Clinical Nurse Specialist Psychiatric/Mental Health
DX: F41.1 Generalized anxiety disorder (principal); F33.1 Major depressive disorder, recurrent, moderate
CPT/HCPCS: 99214

== ENCOUNTER → 2024-08-01 13:08 | Outpatient (BNVA) | payer OTHER, SELFPAY | PROVIDERS: PCP Internal Medicine; Visit Provider Clinical Nurse Specialist Psychiatric/Mental Health | DX: F41.1 Generalized anxiety disorder (principal); F33.1 Major depressive disorder, recurrent, moderate | CPT/HCPCS: 99212 ==

== ENCOUNTER 2024-09-03 10:08 | Outpatient (AMB) | payer OTHER, SELFPAY ==
--- NOTE | 2024-09-03 10:10 | MHC.PC.OV ---
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 Required: No Accompanied by: Self / Same As Patient Allergies Penicillins Allergy (Severe, Verified 09/03/24 10:24) Anaphylaxis Medication List - Last Reconciled 09/03/24 by Monalisa Steward MD ascorbic acid (vitamin C) mg PO ashwagandha root extract 300 mg PO BID betamethasone dipropionate 0.05% 1 appl topical DAILY PRN 2 weeks cholecalciferol (vitamin D3) 25 mcg PO DAILY 90 days dicyclomine 20 mg PO QID PRN 30 days linaclotide (Linzess) 72 mcg PO QAM lorazepam 0.5 mg orally take one at bedtime and may take an additional tablet during the day as needed for severe anxiety PRN; mecobalamin (vitamin B12) 1,000 mcg PO DAILY mirtazapine 7.5 mg PO BEDTIME norethindrone-e.estradiol-iron 1.5 mg-30 mcg (21)/75 mg (7) (Junel FE 1.5/30 (28)) 1 tab PO DAILY pantoprazole (Protonix) 40 mg PO BID 30 days zinc sulfate (Zinc-15) 66 mg PO DAILY Tobacco use date assessed: 09/03/24 Dental Screening Dental Screen Date: 09/03/24 Did you have a dental visit in the last 12 months?: Yes Did you have a dental problem in the last 6 months where you did not have access to dental care?: No Was dental information given to patient?: Patient has dentist HPI HPI Comments History of Present Illness Details The patient is a 43-year-old female presenting with menopausal symptoms and management of chronic conditions. She reports crying spells, mood swings, and irritability suggestive of menopausal transition, potentially influenced by family history indicating premenopause. The patient also experiences chronic constipation, albeit reduced due to her current medication regimen including supplements. Despite dietary and physical activity efforts, the patient describes being overweight, with 20 pounds above her goal. There are concerns about the potential effects of her current medications on weight fluctuations. The anxiety and depression are being managed with Myrtazapine and Lorazepam. She reports no dizziness or headaches, and she is awaiting laboratory evaluations regarding vitamin B12 levels. Recent imaging efforts include a mammography in response to breast pain. Has some insomnia. [facility] Medical History H. pylori infection Physical exam Generalized abdominal pain Upper respiratory tract infection Right lower quadrant abdominal pain Abdominal pain Anxiety Left arm numbness Fibromyalgia Surgical History Status post ORIF of fracture of ankle History of esophagogastroduodenoscopy (EGD) History of ankle surgery Hx of tonsillectomy Family History Father Essential hypertension Mother Essential hypertension Maternal Grandmother Breast cancer Alzheimer's dementia Maternal Grandfather No problems noted. Paternal Grandmother No problems noted. 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 1. Little interest or pleasure in doing things: several days 2. Feeling down, depressed, or hopeless: several days 3. Trouble falling or staying asleep, or sleeping too much: several days 4. Feeling tired or having little energy: more than half the days 5. Poor appetite or overeating: more than half the days 6. Feeling bad about yourself - or that you are a failure or have let yourself or your family down: several days 7. Trouble concentrating on things, such as reading the newspaper or watching television: several days 8. Moving or speaking so slowly that other people could have noticed. Or the opposite - being so fidgety or restless that you have been moving around a lot more than usual: not at all 9. Thoughts that you would be better off or of hurting yourself in some way: not at all Total score: 9 Depression Screening Interpretation: Positive Depression Screening Follow-up: Existing condition, In treatment, Community Mental Health Worker F/U and Follow-up Visit Requested Depression Screening Done: Yes 56683 - PHQ-9 Billing: Yes Source: Developed by Drs. Tristen Villafana, Michelle Hastings, Celestino Cisneros and colleagues, with an educational sarah from [employer]. Thrive Questionnaire Date Thrive assessed: 09/03/24 I am a: Patient What is your living situation today?: I have a steady place to live Within the past 12 months, did the food you bought not last and you didn't have the money to get more?: Often true Within the past 12 months, did you worry whether your food would run out before you got money to buy more?: Never true Do you have trouble paying for medicines?: No Do you have trouble getting transportation to medical appointments?: No Do you have trouble paying your heating and electricity bill?: No Do you have trouble taking care of your child, family member or friend?: No Do you have trouble with day-to-day activities such as bathing, preparing meals, shopping, managing finances, etc.?: No Are you currently unemployed and looking for a job?: No Are you interested in more education?: No Please select the resources that you would like help with: None Currently or been in a relationship where the following occur: No concerns reported THRIVE Score: 1 AUDIT C Alcohol Use Questionnaire (AUDIT-C) 1. How often do you have a drink containing alcohol?: 2-4 times a month 2. How many drinks containing alcohol do you have on a typical day when you are drinking?: 1 or 2 3. How often do you have six or more drinks on one occasion?: Less than monthly Total Score: 3 ELVI-7 AMB Questionnaire ELVI-7 Date ELVI - 7 assessed: 09/03/24 Feeling nervous, anxious, or on edge: 1 = Several days Not being able to stop or control worryin = Several days Worrying too much about different things: 1 = Several days Trouble relaxin = Several days Being so restless that it is hard to sit still: 0 = Not at all Becoming easily annoyed or irritable: 2 = More than half the days Feeling afraid as if something awful might happen: 0 = Not at all Total ELVI-7 score (0-4 normal; 5-9 mild; 10-14 moderate; 15-21 severe): 6 Source: Developed by Drs. Tristen Villafana, Michelle Hastings, Celestino Cisneros and colleagues, with an educational sarah from [employer]. ELVI-7 Assessment Billing ELVI-7 Assessment Tool: ELVI-7 Assessment 82517 Review of Systems Const All systems reviewed & are unremarkable except as noted in HPI and below Card Denies chest pain at rest, Denies chest pain with activity, Denies edema, Denies irregular heart rhythm, Denies claudication, Denies dyspnea, Denies dyspnea on exertion, Denies orthopnea, Denies paroxysmal nocturnal dyspnea and Denies slow heart rate Resp Denies cough, Denies dyspnea and Denies dyspnea on exertion GI Denies abdominal pain, Denies change in bowel habits, Denies excessive flatus, Denies nausea and Denies vomiting Denies urinary incontinence, Denies urinary hesitancy and Denies urinary urgency Neuro Denies behavioral changes and Denies lack of coordination Psych Denies behavioral changes Physical exam (Primary Care) Vital Signs: Last Vital Signs BP 122/80 09/03/24 10:13 BMI result Body Mass Index 28.5 Tobacco/Smoking Status: Tobacco use Status Tobacco use date assessed 09/03/24 09/03/24 10:17 Patient Tobacco Use Status Never used Tobacco 09/03/24 10:12 e-Cigarette/Vaping Use Never Used 09/03/24 10:12 PHQ-9: PHQ-9 Score PHQ-9: Total score 9 09/03/24 10:29 Depression Screening Interpretation: Positive Depression Screening Follow-up: Existing condition, In treatment, Community Mental Health Worker F/U and Follow-up Visit Requested Thrive Assessment: Date of Thrive Assessment Date Thrive assessed 09/03/24 09/03/24 10:12 Currently or been in a relationship where the following occur: No concerns reported Resp Effort & Inspection: normal respiratory effort Auscultation: clear to auscultation bilaterally Cardio Jugular venous distension: no JVD Rate: regular rate Rhythm: regular rhythm Heart sounds: S1 normal heart sound present and S2 normal heart sound present Extrem General: Yes full ROM Coding Level of Care Code Est Pt Level 4 (40718) Complex EM visit Add On G2211 Diagnoses Depression, major, recurrent, moderate F33.1 Chronic idiopathic constipation K59.04 Anxiety F41.9 Persistent insomnia G47.00 Additional Codes ELVI-7 Assessment Billing - ELVI-7 Assessment Tool: ELVI-7 Assessment 55361 ([id number]) PHQ-9 - 43730 - PHQ-9 Billing: Yes ([id number]) Time Spent (min) 22 Assessment & Plan Assessment & Plan (1) Depression, major, recurrent, moderate: Code(s): F33.1 - Major depressive disorder, recurrent, moderate Category: Medical (2) Chronic idiopathic constipation: Code(s): K59.04 - Chronic idiopathic constipation Category: Medical (3) Anxiety: Code(s): F41.9 - Anxiety disorder, unspecified Category: Medical (4) Persistent insomnia: Code(s): G47.00 - Insomnia, unspecified Category: Medical Plan Management of menopausal symptoms should consider the interplay with her current medication regimen, notably Myrtazapine and Lorazepam. Monitoring her symptoms, mood, and the weight impact is crucial. Dietary patterns alongside exercise are cortez areas in managing her overweight concern, with continued use of supplements aiding her digestive health. Awaiting vitamin lab results will guide any adjustments in nutritional supplements. Recently undertaken mammography results will need review to manage breast health concerns. Ongoing monitoring and symptom-specific management remain essential. Patient was informed and verbally consented to the use of an ambient scribe for clinic note documentation during this visit. I discussed with the patient the potential for her current symptoms to be associated with premenopause and how her medications may play a part in mood regulation and weight fluctuations. I emphasized the need for continued monitoring of her weight and dietary patterns, considering the balancing effects of her medications. We explored potential follow-up on her vitamin B12 lab results and mammography findings, particularly focusing on any emergent issues requiring intervention. Detailed guidance was provided regarding lifestyle and dietary habits supportive to her situation, with consensual understanding of managing her symptoms and health parameters. Orders: Orders Vitamin D 25-OH Total 6 Months E55.9 - Vitamin D deficiency, unspecified Comprehensive [place]. Panel Fast 6 Months K59.04 - Chronic idiopathic constipation Vitamin B12 and Folate 6 Months E53.8 - Deficiency of other specified B group vitamins Lipid Panel 6 Months E78.5 - Hyperlipidemia, unspecified Complete Blood Count Auto Diff 6 Months D64.9 - Anemia, unspecified IRON PROFILE 6 Months D64.9 - Anemia, unspecified Patient Instructions: - Continue prescribed medications as directed. - Maintain regular gym attendance and dietary considerations. - Monitor any changes in mood or weight. - Await vitamin B12 test results and mammography follow-up. - Seek medical attention if breast pain intensifies. - Alert clinician if any new symptoms develop.
[2024-09-03 10:13] VITALS: BP 122/80; BMI 28.5
== END 2024-09-03 10:36 | disposition home or self-care (01) ==
LOC: HO.HMCH 10:08
PROVIDERS: PCP Internal Medicine; Visit Provider Internal Medicine
DX: F33.1 Major depressive disorder, recurrent, moderate (principal); K59.04 Chronic idiopathic constipation; F41.9 Anxiety disorder, unspecified; G47.00 Insomnia, unspecified

== ENCOUNTER → 2024-09-03 10:08 | Outpatient (BNVA) | payer OTHER, SELFPAY | PROVIDERS: PCP Internal Medicine; Visit Provider Internal Medicine | DX: F33.1 Major depressive disorder, recurrent, moderate (principal); K59.04 Chronic idiopathic constipation; E66.3 Overweight; F41.9 Anxiety disorder, unspecified; G47.00 Insomnia, unspecified; E55.9 Vitamin D deficiency, unspecified; E53.8 Deficiency of other specified B group vitamins; E78.5 Hyperlipidemia, unspecified; D64.9 Anemia, unspecified; Z68.28 Body mass index [BMI] 28.0-28.9, adult | CPT/HCPCS: 96127; 99212 ==

== ENCOUNTER 2025-01-29 15:04 | Outpatient (AMB) | payer OTHER, SELFPAY ==
--- NOTE | 2025-01-29 15:16 | A.OFFPC_ITS ---
Vital Signs 01/29/25 15:17 Height 5 ft 2 in Weight 161 lb 2 oz BMI 29.5 BP 100/60 Blood Pressure Location Lt brachial Position Sitting Pulse 84 Pulse Source Pulse Oximeter Temp 97.3 F Temp Source Temporal Artery Scan Pulse Oximetry (%) 98 Oxygen Delivery Method Room Air Intake Visit Reasons: pain on her left kidney area Intake Note: Patient is here to follow up on Pain on her left kidney area, burning senses when urination, frequency, chills, nauseas, headaches. Concept Artist Required: No Child Day Care Provider: Not Required per policy Accompanied by: Self / Same As Patient Allergies Penicillins Allergy (Severe, Verified 01/29/25 15:17) Anaphylaxis Tobacco use date assessed: 01/29/25 Dental Screening Dental Screen Date: 09/03/24 [facility] Medical History H. pylori infection Physical exam Generalized abdominal pain Upper respiratory tract infection Right lower quadrant abdominal pain Abdominal pain Anxiety Left arm numbness Fibromyalgia Surgical History Status post ORIF of fracture of ankle History of esophagogastroduodenoscopy (EGD) History of ankle surgery Hx of tonsillectomy Family History Father Essential hypertension Mother Essential hypertension Maternal Grandmother Breast cancer Alzheimer's dementia Maternal Grandfather No problems noted. Paternal Grandmother No problems noted. 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 Current occupational exposures/hazards: No Cognitive needs: No Hearing needs: No Vision needs: No Questionnaire Thrive Questionnaire Date Thrive assessed: 09/03/24 I am a: Patient What is your living situation today?: I have a steady place to live Within the past 12 months, did the food you bought not last and you didn't have the money to get more?: Often true Within the past 12 months, did you worry whether your food would run out before you got money to buy more?: Never true Do you have trouble paying for medicines?: No Do you have trouble getting transportation to medical appointments?: No Do you have trouble paying your heating and electricity bill?: No Do you have trouble taking care of your child, family member or friend?: No Do you have trouble with day-to-day activities such as bathing, preparing meals, shopping, managing finances, etc.?: No Are you currently unemployed and looking for a job?: No Are you interested in more education?: No Please select the resources that you would like help with: None Currently or been in a relationship where the following occur: No concerns reported THRIVE Score: 1 ELVI-7 AMB Questionnaire ELVI-7 Date ELVI - 7 assessed: 09/03/24 Source: Developed by Drs. Tristen Villafana, Michelle Hastings, Celestino Cisneros and colleagues, with an educational sarah from [employer]. Physical exam (Primary Care) Vital Signs: Last Vital Signs Temp 97.3 F 01/29/25 15:17 Pulse 84 01/29/25 15:17 BP 100/60 01/29/25 15:17 Pulse Ox 98 01/29/25 15:17 Oxygen Delivery Method Room Air 01/29/25 15:17 BMI result Body Mass Index 29.5 Tobacco/Smoking Status: Tobacco use Status Tobacco use date assessed 01/29/25 01/29/25 15:23 Patient Tobacco Use Status Never used Tobacco 01/29/25 15:23 e-Cigarette/Vaping Use Never Used 01/29/25 15:23 Thrive Assessment: Date of Thrive Assessment Date Thrive assessed 09/03/24 01/29/25 15:23 Currently or been in a relationship where the following occur: No concerns reported Results AMB Urinalysis, Automated UA Leukoctes 0 Geoff/uL Last Edit by BOB Dugan on 01/29/25 15:33 UA Nitrite Negative Last Edit by BOB Dugan on 01/29/25 15:33 UA Urobilinogen 0 mg/dL Last Edit by Hudson White, [place] on 01/29/25 15:33 UA Protein 0 mg/dL Last Edit by Hudson White, A on 01/29/25 15:33 UA pH 6.0 Last Edit by Hudson White, A on 01/29/25 15:33 UA Blood 1 Mino/uL Last Edit by Hudson White, A on 01/29/25 15:33 UA Specific [place] 1.010 Last Edit by Hudson White, [facility] on 01/29/25 15: 33 UA Ketone Negative Last Edit by Hudson White, A on 01/29/25 15:33 UA Bilirubin 0 mg/dL Last Edit by Hudson White, [facility] on 01/29/25 15:33 UA Glucose 0 mg/dL Last Edit by Hudson White, A on 01/29/25 15:33 Coding Assessment & Plan Assessment & Plan Orders: Orders AMB Urinalysis Automated Today Z13.9 - Encounter for screening, unspecified
[2025-01-29 15:17] VITALS: BP 100/60; PULSE 84; TEMP 36.3; O2SAT 98; BMI 29.5
== END 2025-01-29 15:47 | disposition home or self-care (01) ==
LOC: HO.HMCH 15:05
PROVIDERS: PCP Internal Medicine; Visit Provider Internal Medicine
DX: Z13.9 Encounter for screening, unspecified (principal)

== ENCOUNTER → 2025-01-29 15:04 | Outpatient (BNVA) | payer OTHER, SELFPAY | PROVIDERS: PCP Internal Medicine; Visit Provider Internal Medicine | DX: M54.50 Low back pain, unspecified (principal) | CPT/HCPCS: 81003; 99212 ==

== ENCOUNTER 2025-02-19 13:34 | Outpatient (AMB) | payer OTHER, SELFPAY ==
--- NOTE | 2025-02-19 13:39 | MHC.PC.OV ---
Vital Signs 02/19/25 13:40 Height 5 ft 2 in Weight 155 lb BMI 28.3 BP 126/76 Blood Pressure Location Lt brachial Position Sitting Pulse 79 Pulse Source Pulse Oximeter Temp 97.3 F Temp Source Temporal Artery Scan Pulse Oximetry (%) 97 Oxygen Delivery Method Room Air Intake Visit Reasons: Stomach problem,bloated Marker Machine Required: No Shoe Cobbler: Not Required per policy Accompanied by: Self / Same As Patient Allergies Penicillins Allergy (Severe, Verified 02/19/25 13:40) Anaphylaxis Medication List - Last Reconciled 02/19/25 by Santo Wolfe MD ascorbic acid (vitamin C) mg PO cholecalciferol (vitamin D3) 25 mcg PO DAILY 90 days dicyclomine 20 mg PO QID PRN 30 days linaclotide (Linzess) 72 mcg PO QAM lorazepam 0.5 mg orally take one at bedtime and may take an additional tablet during the day as needed for severe anxiety PRN; mecobalamin (vitamin B12) 1,000 mcg PO DAILY meloxicam 15 mg PO DAILY mirtazapine 7.5 mg PO BEDTIME norethindrone-e.estradiol-iron 1.5 mg-30 mcg (21)/75 mg (7) ( FE 1.5/30 (28)) 1 tab PO DAILY pantoprazole (Protonix) 40 mg PO BID 30 days phenazopyridine 200 mg PO TID zinc sulfate (Zinc-15) 66 mg PO DAILY Tobacco use date assessed: 02/19/25 Dental Screening Dental Screen Date: 09/03/24 HPI HPI Comments History of Present Illness Details The patient is a 44-year-old female with PMH of IBS follows with GI, gastritis and gastric ulcer presenting with severe abdominal pain. She woke up this morning with severe abdominal pain that was bad enough to cause her to be hunched over and has been increasing in severity. Associated symptoms include abdominal bloating, headache, chills, and significant nausea. She denies vomiting, diarrhea, blood in her stool, or black, tarry stools. Her last bowel movement was yesterday and was of regular consistency. The patient has a history of gastrointestinal issues and is followed by a GI specialist. She underwent an endoscopy last January, which revealed she had multiple ulcers that had increased in number. She follows a strict diet, avoiding meat, fried foods, soda, red sauces, and pizza, and primarily consumes walter rice, vegetables, and fish. She has an appointment for a second opinion with another GI doctor on April 11. Her current medications for her GI condition include Dicyclomine four times daily, Linzess 72 mcg once daily, and an unidentified white oval pill twice a day. She also takes vitamin C and vitamin D. She has discontinued ashwagandha and betamethasone cream. [facility] Medical History H. pylori infection Physical exam Generalized abdominal pain Upper respiratory tract infection Right lower quadrant abdominal pain Abdominal pain Anxiety Left arm numbness Fibromyalgia Surgical History Status post ORIF of fracture of ankle History of esophagogastroduodenoscopy (EGD) History of ankle surgery Hx of tonsillectomy Family History Father Essential hypertension Mother Essential hypertension Maternal Grandmother Breast cancer Alzheimer's dementia Maternal Grandfather No problems noted. Paternal Grandmother No problems noted. 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 Current occupational exposures/hazards: No Cognitive needs: No Hearing needs: No Vision needs: No Questionnaire Thrive Questionnaire Date Thrive assessed: 09/03/24 I am a: Patient What is your living situation today?: I have a steady place to live Within the past 12 months, did the food you bought not last and you didn't have the money to get more?: Often true Within the past 12 months, did you worry whether your food would run out before you got money to buy more?: Never true Do you have trouble paying for medicines?: No Do you have trouble getting transportation to medical appointments?: No Do you have trouble paying your heating and electricity bill?: No Do you have trouble taking care of your child, family member or friend?: No Do you have trouble with day-to-day activities such as bathing, preparing meals, shopping, managing finances, etc.?: No Are you currently unemployed and looking for a job?: No Are you interested in more education?: No Please select the resources that you would like help with: None Currently or been in a relationship where the following occur: No concerns reported THRIVE Score: 1 ELVI-7 AMB Questionnaire ELVI-7 Date ELVI - 7 assessed: 09/03/24 Source: Developed by Drs. Tristen Villafana, Michelle Hastings, Celestino Cisneros and colleagues, with an educational sarah from [employer]. Review of Systems Const Details: As per HPI. Physical exam (Primary Care) Vital Signs: Last Vital Signs Temp 97.3 F 02/19/25 13:40 Pulse 79 02/19/25 13:40 BP 126/76 02/19/25 13:40 Pulse Ox 97 02/19/25 13:40 Oxygen Delivery Method Room Air 02/19/25 13:40 BMI result Body Mass Index 28.3 Tobacco/Smoking Status: Tobacco use Status Tobacco use date assessed 02/19/25 02/19/25 13:48 Patient Tobacco Use Status Never used Tobacco 02/19/25 13:48 e-Cigarette/Vaping Use Never Used 02/19/25 13:48 Thrive Assessment: Date of Thrive Assessment Date Thrive assessed 09/03/24 02/19/25 13:48 Currently or been in a relationship where the following occur: No concerns reported Const Other: Pertinent findings are in BOLD GENERAL APPEARANCE NAD, activity normal for age, well developed/ well nourished, no cyanosis, pallor, or diaphoresis. EYES lids/conjunctiva normal. EARS/NOSE/THROAT Mucous membranes moist, nares normal, lips/teeth normal uvula midline without oral pharyngeal erythema, exudate or swelling TMs normal bilaterally. No lymphangitis/lymphedema. HEAD/NECK normocephalic atraumatic, no facial trauma, neck is supple. RESPIRATORY respiratory effort normal, speaks in full sentences, no tripod position, no accessory muscle use. Lungs clear to auscultation without rhonchi, wheezes, rales CARDIAC Regular rate and rhythm, no edema. ABDOMINAL Soft, ND/NT. No evidence of fluid wave. No pulsatile masses on exam, Webb sign or pain over Mcburney's point. Diffuse severe tenderness to palpation. MUSCLES/EXTREMITIES No abnormal range of motion, no swelling. SKIN Warm, pink and dry. No rashes, dermatoses, petechiae or lesions. NEUROLOGICAL Speech is clear and appropriate. Normal level of consciousness. Gait and coordination are normal. 5/5 strength in all extremities. PSYCH Normal mood and affect. Judgement/competence is appropriate Coding Level of Care Code Est Pt Level 3 (03441) Diagnoses Periumbilical abdominal pain R10.33 Time Spent (min) 20 Assessment & Plan Assessment & Plan (1) Periumbilical abdominal pain: Code(s): R10.33 - Periumbilical pain Category: Medical Plan: - The patient's presentation with severe, worsening abdominal pain, which is different from her baseline, is concerning for an acute process such as a complication from her known gastric ulcers. - Given the severity, the patient is advised and agrees to go to the emergency department for immediate evaluation. - The plan in the emergency department would likely include a CT scan of the abdomen and a GI consultation for a possible urgent EGD, which cannot be performed expeditiously in the outpatient setting. - A call was made to the emergency department to provide context for her visit. Plan I discussed with the patient that her current abdominal pain is more severe and different in character from her usual symptoms, which is concerning. I explained that while the pain is likely related to her history of gastritis and stomach ulcers, the severity warrants ruling out an acute complication. I recommended she go to the emergency department for an urgent workup, which could include a CT scan and a consultation with the GI team for a potential endoscopy, as these cannot be arranged quickly from the clinic. We also reviewed the importance of avoiding all NSAID medications like Motrin and Advil due to her ulcer history. The patient understood the risks and agreed with the plan to go to the ER. I will call the ER to inform them of her case. We will schedule a follow-up appointment for one week, which she can cancel if not needed. Medications: Discontinued betamethasone dipropionate 0.05% Discontinued Reason: Patient no longer taking 1 appl topical DAILY 2 weeks PRN 15 grams 0RF skin irritation meloxicam Discontinued Reason: Patient no longer taking 15 mg PO DAILY 14 tabs 0RF
[2025-02-19 13:40] VITALS: BP 126/76; PULSE 79; TEMP 36.3; O2SAT 97; BMI 28.3
== END 2025-02-19 14:07 | disposition home or self-care (01) ==
LOC: HO.HMCH 13:35
PROVIDERS: PCP Internal Medicine; Visit Provider Internal Medicine
DX: R10.33 Periumbilical pain (principal)

== ENCOUNTER → 2025-02-19 13:34 | Outpatient (BNVA) | payer OTHER, SELFPAY | PROVIDERS: PCP Internal Medicine; Visit Provider Internal Medicine | DX: R10.33 Periumbilical pain (principal) | CPT/HCPCS: 99212 ==

== ENCOUNTER 2025-02-19 14:20 | Emergency (ER) | payer OTHER, SELFPAY ==
--- NOTE | ~2025-02-19 | CT_ITS ---
CLINICAL HISTORY: Upper Abd Tenderness CT abdomen and pelvis with contrast Comparison: 05/30/2024, 01/30/2023 Findings: Lung bases are clear. No acute bony abnormalities. Stable right hepatic cyst and left hepatic hypodensity. No acute process noted in the liver or spleen. Pancreas and adrenal glands unremarkable. Gallbladder partially contracted, grossly unremarkable. No significant focal renal abnormalities. No renal stones or hydronephrosis. Abdominal aorta is normal in caliber. No free fluid or adenopathy in the pelvis. No diverticulitis. Appendix not identified. Uterus normal size. No adnexal abnormality. Impression: No acute process This document has been electronically signed by: Christopher Green MD on 02/20/2025 00:40:43
--- NOTE | ~2025-02-19 | US_ITS ---
CLINICAL HISTORY: RUQ Pain Tenderness; Nausea; [place] Ultrasound gallbladder Comparison: 01/17/2020 Findings: Gallbladder unremarkable without stones or wall thickening. Common bile duct: 2.2 mm. Impression: No acute process This document has been electronically signed by: Christopher Green MD on 02/19/2025 22:37:27
[2025-02-19 14:34] VITALS: BP 141/65; PULSE 82; RESP 18; TEMP 36.3; O2SAT 99; BMI 28.2
--- NOTE | 2025-02-19 14:34 | ED_ITS ---
HPI - Abdominal Pain General Chief Complaint: Abdominal Pain Stated Complaint: Stomach Pain Time Seen by Provider: 02/19/25 20:13 Source: patient Mode of arrival: ambulatory Limitations: no limitations History of Present Illness ED Provider: Tomer DOE HPI narrative: The patient is a 44-year-old female who presents to the Emergency Department for acute onset central upper abdominal pain that began this morning while getting her children ready for school. The pain did not wake her from sleep but has progressively worsened to the point that she felt ?hunched over? and unable to stand up straight. She localizes the pain to the epigastric region and RUQ, stating it is most severe centrally and less intense laterally and in the lower abdomen. Pain increases with deep palpation, and she cannot take a deep breath due to discomfort. The patient reports associated nausea without vomiting, abdominal bloating, subjective chills, and headache. She denies diarrhea and denies dysuria, hematuria, frequency, or urgency. No recent sick contacts. The patient reports she ate a vegetarian case ED as last night, which is not uncommon for her. The patient scheduled an appointment earlier today with her PCP who, after abdominal examination, referred her to the ED for further evaluation and imaging. No prior abdominal surgeries. Patient reports recent UTI about two weeks ago which was treated with an unspecified non-penicillin antibiotic (patient is penicillin-allergic). Patient reports resolution of those symptoms following antibiotics. Related Data Home Medications ?Medication ?Instructions ?Recorded ?Confirmed mecobalamin (vitamin B12) 1,000 1,000 mcg PO DAILY 02/19/25 mcg lozenges ascorbic acid (vitamin C) 500 mg mg PO 07/26/24 capsule zinc sulfate 66 mg tablet (Zinc-15) 66 mg PO DAILY 02/19/25 norethindrone 1.5 mg-ethinyl 1 tab PO DAILY 09/03/24 1 04/21/24 estradiol 30 mcg(21)/iron 75 mg(7) tablet (June FE ()) Previous Rx's ?Medication ?Instructions ?Recorded cholecalciferol (vitamin D3) 25 25 mcg PO DAILY 90 day s #90 caps 06/17/24 mcg (1,000 unit) capsule dicyclomine 20 mg tablet 20 mg PO QID PRN abdominal p ain 30 07/26/24 days #120 tabs linaclotide 72 mcg capsule 72 mcg PO QAM #30 caps 07/03 08/25 (Linzess) pantoprazole 40 mg tablet,delayed 40 mg PO BID 30 days #60 tabs 07/26/24 release (Protonix) lorazepam 0.5 mg tablet 0.5 mg PO .COMPLEX PRN anxie ty #60 08/01/24 tabs mirtazapine 7.5 mg tablet 7.5 mg PO BEDTIME #30 tabs 0 08/01/24 phenazopyridine 200 mg tablet 200 mg PO TID #6 tabs Allergies Allergy/AdvReac Type Severity Reaction Status Date / Time Penicillins Allergy Severe Anaphylaxis Verified 02/19/25 14:37 Review of Systems Review of Systems Yes all other systems are reviewed and are negative [facility] Past Medical History Medical History H. pylori infection Physical exam Generalized abdominal pain Upper respiratory tract infection Right lower quadrant abdominal pain Abdominal pain Anxiety Left arm numbness Fibromyalgia Surgical History Status post ORIF of fracture of ankle History of esophagogastroduodenoscopy (EGD) History of ankle surgery Hx of tonsillectomy Family History Family History Father Essential hypertension Mother Essential hypertension Maternal Grandmother Breast cancer Alzheimer's dementia Maternal Grandfather No problems noted. Paternal Grandmother No problems noted. Social History Social History Housing: House Are you a primary pharmacist critical care to a significant other at home: No Do you presently have visiting nurse or other home services: No Alcohol intake: current Alcohol intake frequency: does not drink Patient Tobacco Use Status: Never used Tobacco Smoked in Last 30 Days: No e-Cigarette/Vaping Use: Never Used Second Hand Smoke Exposure: No Use of substances other than those prescribed or required for medical reasons: No Substance Use Type: Marijuana Advance Directives: No Advance Directives Information Provided: No Patient : No service: No Current occupational status: employed 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 Current occupational exposures/hazards: No Cognitive needs: No Hearing needs: No Vision needs: No Physical Exam ED Vital Signs: Vital Signs - 24 hr 02/19/25 14:34 02/19/25 19:36 02/19/25 22:24 Temperature 97.4 F 98.1 F 98.4 F Pulse Rate 82 80 75 Respiratory Rate 18 16 16 Blood Pressure 141/65 H 120/86 114/71 Pulse Oximetry 99 98 98 Oxygen Delivery Method Room Air Room Air Room Air 02/20/25 00:24 Temperature Pulse Rate 76 Respiratory Rate Blood Pressure 114/73 Pulse Oximetry Oxygen Delivery Method BMI result Body Mass Index 28.2 CONSTITUTIONAL: The patient appears uncomfortable but otherwise non-toxic, well nourished and in no acute distress. Vital signs as documented. HEAD: Atraumatic, normocephalic. EYES: EOMs grossly intact, pupils equal, conjunctiva clear, no exudate. ENT: Nares patent, no discharge. Airway patent, no audible stridor, visible mucosa is pink and moist without noted lesions. NECK: Trachea is midline, no obvious masses or gross abnormalities. CHEST: Symmetric movement, normal appearance. LUNGS: LS present and CTAB, no w/r/r. Non-labored work of breathing. CARDIAC: Regular Rhythm, S1/S2 appreciated, no murmurs, rubs or gallops. ABDOMEN: Abdomen soft x4 quadrants, positive tenderness to palpation of the right upper quadrant and epigastrium, positive Webb's, negative rebound, no palpable masses or organomegaly. : Deferred. EXTREMITIES: Normal tone, moves all extremities spontaneously without reported pain. No obvious acute injury or deformity noted. NEURO: Alert and oriented x3, CN II-XII appear grossly intact. Cerebellar Functioning grossly intact. No obvious sensory or motor deficits. Speech clear and appropriate. PSYCH: normal affect, appropriate eye contact, fluid speech, with appropriate response to questioning. No reported suicidality or homicidality. SKIN: Warm, dry, color appropriate, normal turgor. No rashes noted. Course Course Course Narrative: This is a Rapid Medical Exam performed in triage by Gardenia Mensah PA-C. Full HPI, ROS and PE to be performed by primary ED provider. 44 yo F w/pmhx anxiety, fibromyalgia presenting to the ED c/o upper abdominal pain, nausea, & chills x this AM. denies vomiting, D/C, urinary sx PE: abdomen soft w/upper ttp. no rebound or guarding Plan: Labs, UA Medical Decision Making Medical Decision Making MDM Narrative: 9:04 PM 02/19/2025 (Tonie DOE): The patient is a 44-year-old female who presents to the Emergency Department for acute onset central upper abdominal pain that began this morning while getting her children ready for school. The pain did not wake her from sleep but has progressively worsened to the point that she felt ?hunched over? and unable to stand up straight. She localizes the pain to the epigastric region and RUQ, stating it is most severe centrally and less intense laterally and in the lower abdomen. Pain increases with deep palpation, and she cannot take a deep breath due to discomfort. The patient reports associated nausea without vomiting, abdominal bloating, subjective chills, and headache. She denies diarrhea and denies dysuria, hematuria, frequency, or urgency. No recent sick contacts. The patient reports she ate a vegetarian case ED as last night, which is not uncommon for her. The patient scheduled an appointment earlier today with her PCP who, after abdominal examination, referred her to the ED for further evaluation and imaging. No prior abdominal surgeries. Patient reports recent UTI about two weeks ago which was treated with an unspecified non-penicillin antibiotic (patient is penicillin-allergic). Patient reports resolution of those symptoms following antibiotics. On exam patient has point tenderness of the right upper quadrant with mild tenderness of the epigastrium. The patient has a positive Webb's sign. Negative rebound. Laboratory evaluation shows no leukocytosis, anemia, electrolyte abnormality, or MARIA FERNANDA. LFTs are unremarkable, lipase is normal, urinalysis shows negative , small blood on dip, microscopic analysis pending. Patient's presentation is concerning for possible cholelithiasis versus choledocholithiasis versus less likely acute cholecystitis. The patient will be evaluated with abdominal ultrasound, and treated with IV fluid hydration, Toradol, and Zofran. If ultrasound is unremarkable the patient will be sent for CT abdomen and pelvis. 10:42 PM 02/19/2025 (Tonie DOE): The patient had some pain relief with Toradol, however reports pain is returning. The patient's ultrasound is negative for acute cholecystic pathology, we will add on GI cocktail, and send the patient for a CT abdomen and pelvis to evaluate for other acute process. 12:50 AM 02/20/2025 (Tonie DOE): The patient's CT abdomen and pelvis shows no acute intra-abdominal pathology. The patient reports no significant relief from GI cocktail. Given the patient's reassuring workup including laboratory evaluation, unremarkable urinalysis, and normal ultrasound and CT abdomen, as well as the patient's response to Toradol, it is possible the patient is suffering from musculoskeletal pain of the abdominal wall. We will provide lidocaine patch and discharged with supportive care and outpatient follow up. Admission/Observation Consideration of admission/observation: Escalation of care including admission/observation considered Lab Data MDM Lab Attestation statement: I reviewed the patient's lab results. 02/19/25 15:41 02/19/25 15:41 Labs: Lab Results 02/19/25 02/19/25 Range/Units 15:41 19:40 WBC 8.4 (4.8-10.8) X10*3/uL RBC 4.71 (4.20-5.50) X10*6/uL Hgb 14.9 (12.0-16.0) g/dl Hct 43.7 (37.0-47.0) % MCV 92.8 (80.0-98.0) fL MCH 31.6 (27.0-33.0) pg MCHC 34.1 (31.0-35.0) g/dl RDW 11.7 (11.0-16.0) % Plt Count 383 D (160-400) X10*3/uL MPV 9.2 L (9.4-12.3) fL Immature Gran % (Auto) 0.2 (0.0-0.4) % Neut % (Auto) 68.9 (45-73) % Lymph % (Auto) 25.4 (20-40) % [place] % (Auto) 5.1 (2-11) % Eos % (Auto) 0.0 (0-4) % Baso % (Auto) 0.4 (0-2) % Lymph # (Auto) 2.1 (1.2-4.9) X10*3/uL [place] # (Auto) 0.4 (0.1-1.2) X10*3/uL Eos # (Auto) 0.0 (0.0-0.4) X10*3/uL Baso # (Auto) 0.0 (0.0-0.2) X10*3/uL Abs Immat Gran (auto) 0.02 (0.00-0.03) X10*3/uL Absolute Neuts (auto) 5.8 (2.0-8.3) x10*3/uL Absolute Nucleated RBC 0.000 (0.0-0.012) X10*3/uL Nucleated RBC % (auto) 0.0 (0.0-0.2) /100WBC Sodium 138 (135-145) mmol/L Potassium 4.0 (3.3-5.1) mmol/L Chloride 105 (96-108) mmol/L Carbon Dioxide 27 (22-29) mmol/L Anion Gap 10 L (12-20) BUN 11 (9-16) mg/dL Creatinine 0.70 (0.5-1.4) mg/dL Estim Creat Clear Calc 94.9 Estimated GFR > 60 Random Glucose 115 (60-115) mg/dL Calcium 9.5 D (8.4-10.2) mg/dL Magnesium 1.9 (1.6-2.6) mg/dL Total Bilirubin 0.5 (0.0-1.0) mg/dL Direct Bilirubin 0.2 (0.0-0.5) mg/dL AST 27 (5-31) U/L ALT 20 (0-31) U/L Alkaline Phosphatase 55 (39-117) U/L Total Protein 7.7 (6.5-8.0) g/dL Albumin 4.7 (3.5-5.0) g/dL Lipase 22 (8-78) U/L Urine Color Yellow Urine Appearance Clear Urine pH 7.0 (5.0-9.0) Ur Specific [place] 1.015 (1.005-1.025) Urine Protein Negative (Neg-Trace) mg/dL Urine Glucose (UA) Negative (Negative) mg/dL Urine Ketones Negative (Negative) mg/dL Urine Blood Small (1+) H (Negative) Urine Nitrite Negative (Negative) Ur Leukocyte Esterase Negative (Negative) Urine RBC 11-20 H (0-2) /HPF Urine WBC 0-5 (0-5) /HPF Ur Squamous Epith Cells 0-2 (0-2) /HPF Urine Bacteria None Seen (None Seen) Hyaline Casts 0-2 (0-2) /LPF Urine Test NEGATIVE (NEGATIVE) Radiology Impression Discussion of test interpretation with radiology: I have reviewed the radiologist's reading. Radiologist Impression: CT abdomen and pelvis with contrast Comparison: 05/30/2024, 01/30/2023 Findings: Lung bases are clear. No acute bony abnormalities. Stable right hepatic cyst and left hepatic hypodensity. No acute process noted in the liver or spleen. Pancreas and adrenal glands unremarkable. Gallbladder partially contracted, grossly unremarkable. No significant focal renal abnormalities. No renal stones or hydronephrosis. Abdominal aorta is normal in caliber. No free fluid or adenopathy in the pelvis. No diverticulitis. Appendix not identified. Uterus normal size. No adnexal abnormality. Impression: No acute process This document has been electronically signed by: Christopher Green MD on 02/20/2025 00:40:43 Ultrasound gallbladder Comparison: 01/17/2020 Findings: Gallbladder unremarkable without stones or wall thickening. Common bile duct: 2.2 mm. Impression: No acute process This document has been electronically signed by: Christopher Green MD on 02/19/2025 22:37:27 External Record Review External record reviewed: Outpatient record and Prior outpatient labs Prescription Management I considered prescription management with: Pain Medication Medications Administered Discontinued Medications Generic Name Dose Route Start Last Admin Trade Name Freq PRN Reason Stop Dose Admin Al Hydroxide/Mg Hydroxide 30 ml 02/19/25 22:41 02/19/25 22:53 Magnesium Hydrox/Alum Hydrox 30 Ml Oral.Susp PO 02/19/25 22:42 30 ml ONCE ONE Administration Famotidine 20 mg 02/19/25 22:41 02/19/25 22:50 Famotidine 20 Mg Tablet PO 02/19/25 22:42 20 mg ONCE ONE Administration Sodium Chloride 1,000 mls @ 999 mls/hr 02/19/25 21:15 02/19/25 22:28 Ns IV 02/19/25 22:15 Infused .Q1H1M ANGELINE Infusion Iohexol 100 ml 02/19/25 23:13 02/19/25 23:13 Iohexol 350 Mg/Ml 100 Ml Infus..Btl IV 02/19/25 23:14 85 ml ONCE ONE Administration Ketorolac Tromethamine 15 mg 02/19/25 21:05 02/19/25 21:11 Ketorolac Tromethamine 15 Mg/Ml Vial IVPUSH 02/19/25 21:06 15 mg ONCE ONE Administration Lidocaine HCl 15 ml 02/19/25 22:41 02/19/25 22:53 Lidocaine Hcl Viscous 2 % 15 Ml Solution PO 02/19/25 22:42 15 ml ONCE ONE Administration Ondansetron HCl 4 mg 02/19/25 21:05 02/19/25 21:11 Ondansetron Hcl 4 Mg/2 Ml Vial IVPUSH 02/19/25 21:06 4 mg ONCE ONE Administration Discharge Plan Discharge Clinical Impression: Abdominal wall pain in epigastric region Patient Disposition: Home, Self-Care Instructions: Abdominal Pain (ED) Additional Instructions: Thank you for choosing [facility]'s Emergency Department for your care today. Thankfully your laboratory evaluation, urinalysis, CT abdomen, ultrasound, and exam today are all reassuring. There was no evidence of any acute intra- abdominal process requiring immediate intervention, admission to the hospital, or continued ED observation, and it is safe to discharge you home. The exact cause of your symptoms is not entirely clear, however given your otherwise reassuring workup you may be suffering from a musculoskeletal strain of the abdominal wall. You should take alternating (staggered) doses of ibuprofen 600mg and Tylenol 1000mg every 4 hours as needed for any additional pain. Please stay well hydrated and get plenty of rest. Please rest the injured area, and apply heat or ice for 20 minutes every hour. We have treated you with a lidocaine patch, if you find this provides you significant relief additional patches can be purchased at any local pharmacy without a prescription. Please follow up with your primary care physician for re-evaluation, additional management of your symptoms, and continued preventative care. If you do not have a primary care physician, please call the [facility] at [phone] to establish a new primary care physician. While waiting to establish your new primary care physician, you can call our [facility] at [phone] for non-emergency needs. Please return to the emergency department if you develop a severe or sudden change in your symptoms, a fever over 100.4 that does not improve with Tylenol or Ibuprofen, recurrent vomiting, or any other new or worsening symptoms or concerns. Prescriptions: No Action cholecalciferol (vitamin D3) 25 mcg (1,000 unit) capsule 25 mcg PO DAILY 90 Days Qty: 90 1RF mecobalamin (vitamin B12) 1,000 mcg lozenge 1,000 mcg PO DAILY Rx Instructions: allow to dissolve in mouth OR may chew lightly before swallowing norethindrone-e.estradiol-iron [Junel FE 1.5/30 (28)] 1.5 mg-30 mcg (21)/75 mg (7) tablet 1 tab PO DAILY ascorbic acid (vitamin C) 500 mg capsule PO Zinc-15 66 mg tablet 66 mg PO DAILY Linzess 72 mcg capsule 72 mcg PO QAM Qty: 30 6RF pantoprazole [Protonix] 40 mg tablet,delayed release (DR/EC) 40 mg PO BID 30 Days Qty: 60 6RF dicyclomine 20 mg tablet 20 mg PO QID PRN (Reason: abdominal pain) 30 Days Qty: 120 6RF mirtazapine 7.5 mg tablet 7.5 mg PO BEDTIME Qty: 30 2RF lorazepam 0.5 mg tablet 0.5 mg PO .COMPLEX PRN (Reason: anxiety) Qty: 60 3RF Rx Instructions: 0.5 mg orally take one at bedtime and may take an additional tablet during the day as needed for severe anxiety PRN; phenazopyridine 200 mg tablet 200 mg PO TID Qty: 6 0RF Rx Instructions: TID daily after meals for 2 days Referrals: Monalisa Urban MD [Primary Care Provider, Internal Medicine] Clinical Impression: Abdominal wall pain in epigastric region Print Language: Norwegian
[2025-02-19 15:46] LABS: MANUAL DIFF FLAG NO
[2025-02-19 15:48] LABS: Hematocrit 43.7 % (37.0-47.0); Hemoglobin 14.9 g/dl (12.0-16.0); Imm Gran Abs Auto 0.02 X10*3/uL (0.00-0.03); Imm Gran Pct Auto 0.2 % (0.0-0.4); Lymphocytes Absolute Auto 2.1 X10*3/uL (1.2-4.9); Mean Corpuscular HGB Conc 34.1 g/dl (31.0-35.0); Mean Corpuscular Hemoglobin 31.6 pg (27.0-33.0); Mean Corpuscular Volume 92.8 fL (80.0-98.0); NRBC Abs Auto 0.000 X10*3/uL (0.0-0.012); NRBC Pct Auto 0.0 /100WBC (0.0-0.2); Platelet Count 383 X10*3/uL (160-400); Red Blood Count 4.71 X10*6/uL (4.20-5.50); White Blood Count 8.4 X10*3/uL (4.8-10.8)
[2025-02-19 16:09] LABS: Alanine Aminotransferase 20 U/L (0-31); Albumin Level 4.7 g/dL (3.5-5.0); Alkaline Phosphatase 55 U/L (39-117); Anion Gap 10 (12-20); Aspartate Amino Transferase 27 U/L (5-31); Blood Urea Nitrogen 11 mg/dL (9-16); Calcium 9.5 mg/dL (8.4-10.2); Carbon Dioxide 27 mmol/L (22-29); Chloride 105 mmol/L (96-108); Creatinine Clr Calc Pharmacy 94.9; Estimated Glomerular Filt Rate > 60; Lipase 22 U/L (8-78); Magnesium 1.9 mg/dL (1.6-2.6); Potassium 4.0 mmol/L (3.3-5.1); Sodium 138 mmol/L (135-145); Total Protein 7.7 g/dL (6.5-8.0)
[2025-02-19 19:36] VITALS: BP 120/86; PULSE 80; RESP 16; TEMP 36.7; O2SAT 98
[2025-02-19 20:05] LABS: Appearance Urine Clear; Glucose Urine UA Negative (Negative); PH 7.0 (5.0-9.0); Specific Gravity - Urine 1.015 (1.005-1.025); UMIC TRIGGER UACC YES
[2025-02-19 20:06] LABS: UPreg QC Valid YES
[2025-02-19 22:24] VITALS: BP 114/71; PULSE 75; RESP 16; TEMP 36.9; O2SAT 98
[2025-02-19] MEDS: Lidocaine HCl Viscous 2 % 15 ML SOLUTION PO (22:53)
[2025-02-19] MEDS: Magnesium Hydrox/Alum Hydrox 30 ML ORAL.SUSP PO (22:53)
[2025-02-19] MEDS: iohexoL 350 MG/ML 100 ML INFUS..BTL IV (23:13)
[2025-02-20 00:24] VITALS: BP 114/73; PULSE 76
[2025-02-20 01:06] VITALS: BP 114/73; PULSE 76; RESP 16; TEMP 36.6
[2025-02-20] MEDS: Lidocaine 4 % Patch ADH..PATCH 1 PATCH TRANSDERMA (01:24)
== END 2025-02-20 01:10 | disposition home or self-care (01) ==
PROVIDERS: Physician Assistant; Emergency Provider Emergency Medicine; PCP Internal Medicine
DX: R10.13 Epigastric pain (principal); R10.10 Upper abdominal pain, unspecified; R11.0 Nausea
CPT/HCPCS: 36415; 74177; 76705; 80048; 80076; 81001; 81003; 81025; 83690; 83735; 85025; 96361; 96374; 96375; 99285; J1885; J2405; Q9967

== ENCOUNTER → 2025-02-19 21:02 | Outpatient (BNV) | payer OTHER, SELFPAY | PROVIDERS: Emergency Provider Emergency Medicine; PCP Internal Medicine; Visit Provider Radiology Diagnostic Radiology | DX: R10.11 Right upper quadrant pain (principal); R11.0 Nausea; R10.819 Abdominal tenderness, unspecified site | CPT/HCPCS: 74177; 76705 ==

== ENCOUNTER 2025-03-05 13:48 | Outpatient (REF) | payer OTHER, SELFPAY ==
[2025-03-05 14:10] LABS: MANUAL DIFF FLAG NO
[2025-03-05 14:46] LABS: Hematocrit 42.2 % (37.0-47.0); Hemoglobin 14.5 g/dl (12.0-16.0); Imm Gran Abs Auto 0.01 X10*3/uL (0.00-0.03); Imm Gran Pct Auto 0.1 % (0.0-0.4); Lymphocytes Absolute Auto 2.7 X10*3/uL (1.2-4.9); Mean Corpuscular HGB Conc 34.4 g/dl (31.0-35.0); Mean Corpuscular Hemoglobin 31.7 pg (27.0-33.0); Mean Corpuscular Volume 92.1 fL (80.0-98.0); NRBC Abs Auto 0.000 X10*3/uL (0.0-0.012); NRBC Pct Auto 0.0 /100WBC (0.0-0.2); Platelet Count 372 X10*3/uL (160-400); Red Blood Count 4.58 X10*6/uL (4.20-5.50); White Blood Count 7.4 X10*3/uL (4.8-10.8)
[2025-03-05 15:24] LABS: Alanine Aminotransferase 17 U/L (0-31); Albumin Level 4.7 g/dL (3.5-5.0); Alkaline Phosphatase 48 U/L (39-117); Anion Gap 13 (12-20); Aspartate Amino Transferase 21 U/L (5-31); Blood Urea Nitrogen 8 mg/dL (9-16); Calcium 9.4 mg/dL (8.4-10.2); Carbon Dioxide 23 mmol/L (22-29); Chloride 107 mmol/L (96-108); Cholesterol 210 mg/dL (<200); Estimated Glomerular Filt Rate > 60; HDL Cholesterol 58 mg/dL (>40); Iron 149 mcg/dL (30-160); Percent Iron Saturation 46 % (15-50); Potassium 4.0 mmol/L (3.3-5.1); Sodium 139 mmol/L (135-145); Total Iron Binding Capacity 321 mcg/dL (228-428); Total Protein 7.5 g/dL (6.5-8.0); Triglycerides 112 mg/dL (<150); Unsaturated Iron Binding 172 ug/dL
[2025-03-05 15:44] LABS: Folate 12.8 ng/mL (> or = 4.0); Vitamin B12 620 pg/mL (200-900)
== END 2025-03-05 13:49 | disposition home or self-care (01) ==
LOC: HO.LAB 13:48
PROVIDERS: PCP Internal Medicine; Visit Provider Internal Medicine
DX: K59.04 Chronic idiopathic constipation (principal); D64.9 Anemia, unspecified; E53.8 Deficiency of other specified B group vitamins; E78.5 Hyperlipidemia, unspecified; E55.9 Vitamin D deficiency, unspecified
CPT/HCPCS: 36415; 80053; 80061; 82306; 82607; 82746; 83540; 85025

== ENCOUNTER 2025-03-06 09:35 | Outpatient (AMB) | payer OTHER, SELFPAY ==
--- NOTE | 2025-03-06 09:39 | A.OFFPC_ITS ---
Vital Signs 03/06/25 09:43 Height 5 ft 1.5 in Weight 157 lb BMI 29.2 BP 96/68 Blood Pressure Location Rt brachial Position Sitting Pulse 68 Pulse Source Pulse Oximeter Temp 97.3 F Temp Source Temporal Artery Scan Pulse Oximetry (%) 97 Oxygen Delivery Method Room Air Intake Visit Reasons: Annual Exam Cage Tender Required: No Radiological Defense Officer: Not Required per policy Accompanied by: Self / Same As Patient Allergies Penicillins Allergy (Severe, Verified 03/06/25 09:57) Anaphylaxis Medication List - Last Reconciled 03/06/25 by Monalisa Steward MD albuterol sulfate 90 mcg/actuation (Ventolin HFA) inhalation ascorbic acid (vitamin C) mg PO cholecalciferol (vitamin D3) 25 mcg PO DAILY 90 days lorazepam 0.5 mg orally take one at bedtime and may take an additional tablet during the day as needed for severe anxiety PRN; magnesium oxide 500 mg PO DAILY mecobalamin (vitamin B12) 1,000 mcg PO DAILY norethindrone-e.estradiol-iron 1.5 mg-30 mcg (21)/75 mg (7) (Junel FE 1.5/30 (28)) 1 tab PO DAILY zinc sulfate (Zinc-15) 66 mg PO DAILY Tobacco use date assessed: 03/06/25 Dental Screening Dental Screen Date: 03/06/25 Did you have a dental visit in the last 12 months?: Yes PFSH Medical History (Updated 03/06/25 @ 10:14 by Monalisa Steward MD) Physical exam H. pylori infection Generalized abdominal pain Upper respiratory tract infection Right lower quadrant abdominal pain Abdominal pain Anxiety Left arm numbness Fibromyalgia Surgical History Status post ORIF of fracture of ankle History of esophagogastroduodenoscopy (EGD) History of ankle surgery Hx of tonsillectomy Family History Father Essential hypertension Mother Essential hypertension Maternal Grandmother Breast cancer Alzheimer's dementia Maternal Grandfather No problems noted. Paternal Grandmother No problems noted. 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 1. Little interest or pleasure in doing things: several days 2. Feeling down, depressed, or hopeless: several days 3. Trouble falling or staying asleep, or sleeping too much: several days 4. Feeling tired or having little energy: more than half the days 5. Poor appetite or overeating: more than half the days 6. Feeling bad about yourself - or that you are a failure or have let yourself or your family down: several days 7. Trouble concentrating on things, such as reading the newspaper or watching television: several days 8. Moving or speaking so slowly that other people could have noticed. Or the opposite - being so fidgety or restless that you have been moving around a lot more than usual: not at all 9. Thoughts that you would be better off or of hurting yourself in some way: not at all Total score: 9 Depression Screening Interpretation: Positive Depression Screening Follow-up: Existing condition, In treatment, Community Mental Health Worker F/U and Follow- up Visit Requested Depression Screening Done: Yes 72648 - PHQ-9 Billing: Yes Source: Developed by Drs. Tristen Villafana, Michelle Hastings, Celestino Cisneros and colleagues, with an educational sarah from [employer]. Thrive Questionnaire Date Thrive assessed: 03/06/25 I am a: Patient What is your living situation today?: I have a steady place to live Within the past 12 months, did the food you bought not last and you didn't have the money to get more?: Often true Within the past 12 months, did you worry whether your food would run out before you got money to buy more?: Never true Do you have trouble paying for medicines?: No Do you have trouble getting transportation to medical appointments?: No Do you have trouble paying your heating and electricity bill?: No Do you have trouble taking care of your child, family member or friend?: No Do you have trouble with day-to-day activities such as bathing, preparing meals, shopping, managing finances, etc.?: No Are you currently unemployed and looking for a job?: No Are you interested in more education?: No Please select the resources that you would like help with: None Currently or been in a relationship where the following occur: No concerns reported THRIVE Score: 1 AUDIT C Alcohol Use Questionnaire (AUDIT-C) 1. How often do you have a drink containing alcohol?: 2-4 times a month 2. How many drinks containing alcohol do you have on a typical day when you are drinking?: 1 or 2 3. How often do you have six or more drinks on one occasion?: Less than monthly Total Score: 3 ELVI-7 AMB Questionnaire ELVI-7 Date ELVI - 7 assessed: 03/06/25 Feeling nervous, anxious, or on edge: 0 = Not at all Not being able to stop or control worryin = Not at all Worrying too much about different things: 0 = Not at all Trouble relaxin = Not at all Being so restless that it is hard to sit still: 0 = Not at all Becoming easily annoyed or irritable: 0 = Not at all Feeling afraid as if something awful might happen: 0 = Not at all Total ELVI-7 score (0-4 normal; 5-9 mild; 10-14 moderate; 15-21 severe): 0 Source: Developed by Drs. Tristen Villafana, Michelle Hastings, Celestino Cisneros and colleagues, with an educational sarah from [employer]. Physical exam (Primary Care) Vital Signs: Last Vital Signs Temp 97.3 F 03/06/25 09:43 Pulse 68 03/06/25 09:43 BP 96/68 03/06/25 09:43 Pulse Ox 97 03/06/25 09:43 Oxygen Delivery Method Room Air 03/06/25 09:43 BMI result Body Mass Index 29.2 Tobacco/Smoking Status: Tobacco use Status Tobacco use date assessed 03/06/25 03/06/25 09:48 Patient Tobacco Use Status Never used Tobacco 12/04/25 10:02 e-Cigarette/Vaping Use Never Used 03/06/25 10:02 PHQ-9: PHQ-9 Score PHQ-9: Total score 9 03/06/25 10:03 Depression Screening Interpretation: Positive Depression Screening Follow-up: Existing condition, In treatment, Community Mental Health Worker F/U and Follow- up Visit Requested Thrive Assessment: Date of Thrive Assessment Date Thrive assessed 03/06/25 03/06/25 09:48 Currently or been in a relationship where the following occur: No concerns repor dagoberto Office Procedures Flu Questionnaire Does the patient have a severe egg allergy?: No Does the patient have severe life threatening allergies?: No Does the patient have a fever or illness today?: No Has the patient ever had Guillain-[place] Syndrome?: No Has the patient ever had any past reaction to a flu shot?: No Immunizations Fluarix [id number] (PF) 45 mcg (15 mcg x 3)/0.5 mL IM syringe Performing Provider: Monalisa Steward MD [facility] [place] [facility] Documented (not given) by: Sujey Pelaez CMA on 03/06/25 09:50 Reason Not Given: Patient Refused Coding Level of Care Code Est Pt Prev Care 40-64y(08193) Diagnoses Physical exam Z00.00 Additional Codes PHQ-9 - 74368 - PHQ-9 Billing: Yes ([id number]) Assessment & Plan Assessment & Plan (1) Physical exam: Code(s): Z00.00 - Encounter for general adult medical examination without abnormal findings Category: Medical Plan Repeat in a year. Orders: Orders Influenza [id number] Immunization Today Z23 - Encounter for immunization Referrals Urology Referral R31.29 - Other microscopic hematuria
--- NOTE | 2025-03-06 09:41 | MHC.PC.OV ---
Vital Signs 03/06/25 09:43 Height 5 ft 1.5 in Weight 157 lb BMI 29.2 BP 96/68 Blood Pressure Location Rt brachial Position Sitting Pulse 68 Pulse Source Pulse Oximeter Temp 97.3 F Temp Source Temporal Artery Scan Pulse Oximetry (%) 97 Oxygen Delivery Method Room Air Intake Visit Reasons: Annual Exam Tool Dispatcher Required: No Accompanied by: Self / Same As Patient Allergies Penicillins Allergy (Severe, Verified 03/06/25 09:57) Anaphylaxis Medication List - Last Reconciled 03/06/25 by Monlaisa Steward MD albuterol sulfate 90 mcg/actuation (Ventolin HFA) inhalation ascorbic acid (vitamin C) mg PO cholecalciferol (vitamin D3) 25 mcg PO DAILY 90 days lorazepam 0.5 mg orally take one at bedtime and may take an additional tablet during the day as needed for severe anxiety PRN; magnesium oxide 500 mg PO DAILY mecobalamin (vitamin B12) 1,000 mcg PO DAILY norethindrone-e.estradiol-iron 1.5 mg-30 mcg (21)/75 mg (7) (Junel FE 1.5/30 (28)) 1 tab PO DAILY zinc sulfate (Zinc-15) 66 mg PO DAILY Tobacco use date assessed: 03/06/25 Dental Screening Dental Screen Date: 03/06/25 Did you have a dental visit in the last 12 months?: Yes HPI HPI Comments History of Present Illness Details The patient is a 44 year old female presenting for an annual physical examination. Her current medications and supplements include an albuterol inhaler as needed, vitamin C, vitamin D, lorazepam, vitamin B12, Junel for contraception, and multivitamins. She has been taking magnesium for anxiety as advised by another provider and has reduced her use of lorazepam. 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 Her surgical history includes ankle fracture repair and a tonsillectomy. She underwent endoscopies last year. For gynecological history, she had a Pap smear this year. She had an IUD removed, started oral contraceptive pills, and is awaiting a tubal ligation. Her last mammogram was last year. The patient has a history of depression, with a recent PHQ-9 score of 9, and is currently in therapy. She experiences occasional dizziness and reports a lot of night sweats. She has a diagnosis of fibromyalgia. Recent laboratory results showed an elevated total cholesterol of 210, but her 10-year cardiovascular risk score is low at 0.2%. A urinalysis showed a small amount of blood, which she reports as a recurrent finding. Her hemoglobin, white blood cells, platelets, renal function, electrolytes, blood sugar, iron, vitamin B12, vitamin D, and folic acid levels were all normal. Her family history is significant for hypertension in both parents. Regarding social history, she uses marijuana occasionally to help with sleep. [facility] Medical History (Updated 03/06/25 @ 10:14 by Monalisa Steward MD) Physical exam H. pylori infection Generalized abdominal pain Upper respiratory tract infection Right lower quadrant abdominal pain Abdominal pain Anxiety Left arm numbness Fibromyalgia Surgical History Status post ORIF of fracture of ankle History of esophagogastroduodenoscopy (EGD) History of ankle surgery Hx of tonsillectomy Family History Father Essential hypertension Mother Essential hypertension Maternal Grandmother Breast cancer Alzheimer's dementia Maternal Grandfather No problems noted. Paternal Grandmother No problems noted. 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 1. Little interest or pleasure in doing things: several days 2. Feeling down, depressed, or hopeless: several days 3. Trouble falling or staying asleep, or sleeping too much: several days 4. Feeling tired or having little energy: more than half the days 5. Poor appetite or overeating: more than half the days 6. Feeling bad about yourself - or that you are a failure or have let yourself or your family down: several days 7. Trouble concentrating on things, such as reading the newspaper or watching television: several days 8. Moving or speaking so slowly that other people could have noticed. Or the opposite - being so fidgety or restless that you have been moving around a lot more than usual: not at all 9. Thoughts that you would be better off or of hurting yourself in some way: not at all Total score: 9 Depression Screening Interpretation: Positive Depression Screening Follow-up: Existing condition, In treatment, Community Mental Health Worker F/U and Follow-up Visit Requested Depression Screening Done: Yes 80248 - PHQ-9 Billing: Yes Source: Developed by Drs. Tristen Villafana, Michelle Hastings, Celestino Cisneros and colleagues, with an educational sarah from [employer]. Thrive Questionnaire Date Thrive assessed: 03/06/25 I am a: Patient What is your living situation today?: I have a steady place to live Within the past 12 months, did the food you bought not last and you didn't have the money to get more?: Often true Within the past 12 months, did you worry whether your food would run out before you got money to buy more?: Never true Do you have trouble paying for medicines?: No Do you have trouble getting transportation to medical appointments?: No Do you have trouble paying your heating and electricity bill?: No Do you have trouble taking care of your child, family member or friend?: No Do you have trouble with day-to-day activities such as bathing, preparing meals, shopping, managing finances, etc.?: No Are you currently unemployed and looking for a job?: No Are you interested in more education?: No Please select the resources that you would like help with: None Currently or been in a relationship where the following occur: No concerns reported THRIVE Score: 1 AUDIT C Alcohol Use Questionnaire (AUDIT-C) 1. How often do you have a drink containing alcohol?: 2-4 times a month 2. How many drinks containing alcohol do you have on a typical day when you are drinking?: 1 or 2 3. How often do you have six or more drinks on one occasion?: Less than monthly Total Score: 3 ELVI-7 AMB Questionnaire ELVI-7 Date ELVI - 7 assessed: 03/06/25 Feeling nervous, anxious, or on edge: 0 = Not at all Not being able to stop or control worryin = Not at all Worrying too much about different things: 0 = Not at all Trouble relaxin = Not at all Being so restless that it is hard to sit still: 0 = Not at all Becoming easily annoyed or irritable: 0 = Not at all Feeling afraid as if something awful might happen: 0 = Not at all Total ELVI-7 score (0-4 normal; 5-9 mild; 10-14 moderate; 15-21 severe): 0 Source: Developed by Drs. Tristen Villafana, Michelle Hastings, Celestino Cisneros and colleagues, with an educational sarah from [employer]. ELVI-7 Assessment Billing ELVI-7 Assessment Tool: ELVI-7 Assessment 40038 Review of Systems Const All systems reviewed & are unremarkable except as noted in HPI and below Card Denies chest pain at rest, Denies chest pain with activity, Denies edema, Denies irregular heart rhythm, Denies claudication, Denies dyspnea, Denies dyspnea on exertion, Denies orthopnea, Denies paroxysmal nocturnal dyspnea and Denies slow heart rate Resp Denies cough, Denies dyspnea and Denies dyspnea on exertion GI Denies abdominal pain, Denies change in bowel habits, Denies excessive flatus, Denies nausea and Denies vomiting Musc Denies limited range of motion Physical exam (Primary Care) Vital Signs: Last Vital Signs Temp 97.3 F 03/06/25 09:43 Pulse 68 03/06/25 09:43 BP 96/68 03/06/25 09:43 Pulse Ox 97 03/06/25 09:43 Oxygen Delivery Method Room Air 03/06/25 09:43 BMI result Body Mass Index 29.2 Tobacco/Smoking Status: Tobacco use Status Tobacco use date assessed 03/06/25 03/06/25 09:48 Patient Tobacco Use Status Never used Tobacco 03/06/25 09:48 e-Cigarette/Vaping Use Never Used 03/06/25 09:48 PHQ-9: PHQ-9 Score PHQ-9: Total score 9 03/06/25 09:48 Depression Screening Interpretation: Positive Depression Screening Follow-up: Existing condition, In treatment, Community Mental Health Worker F/U and Follow-up Visit Requested Thrive Assessment: Date of Thrive Assessment Date Thrive assessed 03/06/25 03/06/25 09:48 Currently or been in a relationship where the following occur: No concerns reported HENMT Head: Yes normal to inspection, Yes normocephalic and Yes atraumatic Ears: external ears normal Eyes General: appearance normal, both eyes and all related structures Eyelids: Yes eyelids normal Conjunctivae: conjunctivae normal Neck Neck: Yes normal visual inspection and Yes supple Resp Effort & Inspection: normal respiratory effort Auscultation: clear to auscultation bilaterally Cardio Jugular venous distension: no JVD Rate: regular rate Rhythm: regular rhythm Heart sounds: S1 normal heart sound present and S2 normal heart sound present GI Inspection: Yes normal to inspection Palpation (GI): Soft to palpation and nontender Auscultation: normal bowel sounds Skin General skin exam: no rashes or lesions noted Neuro General: no focal motor deficits Extrem General: Yes full ROM Psych Appearance: grossly normal Office Procedures Flu Questionnaire Does the patient have a severe egg allergy?: No Does the patient have severe life threatening allergies?: No Does the patient have a fever or illness today?: No Has the patient ever had Guillain-[place] Syndrome?: No Has the patient ever had any past reaction to a flu shot?: No Immunizations Fluarix [id number] (PF) 45 mcg (15 mcg x 3)/0.5 mL IM syringe Performing Provider: Monalisa Steward MD Performing Location: [facility] [place] [place] [facility] Documented (not given) by: Sujey Pelaez CMA on 03/06/25 09:50 Reason Not Given: Patient Refused Coding Level of Care Code Est Pt Level 3 (98404) Est Pt Prev Care 40-64y(25210) Diagnoses Physical exam Z00.00 Depression, major, recurrent, moderate F33.1 Microscopic hematuria R31.29 Additional Codes PHQ-9 - 67756 - PHQ-9 Billing: Yes ([id number]) ELVI-7 Assessment Billing - ELVI-7 Assessment Tool: ELVI-7 Assessment 25207 ([id number]) Time Spent (min) 22 Assessment & Plan Assessment & Plan (1) Physical exam: Code(s): Z00.00 - Encounter for general adult medical examination without abnormal findings Category: Medical (2) Depression, major, recurrent, moderate: Code(s): F33.1 - Major depressive disorder, recurrent, moderate Category: Medical (3) Microscopic hematuria: Code(s): R31.29 - Other microscopic hematuria Category: Medical Plan Plan 1. Physical exam Recent laboratory results were reviewed, noting normal CBC, metabolic panel, and vitamin levels. The patient's tetanus vaccination is up to date. She has declined the influenza vaccine. An order will be placed for a screening mammogram. Pap smear up-to-date. 2. Hypercholesterolemia The patient's total cholesterol is slightly elevated at 210. However, her calculated 10-year cardiovascular risk score is very low at 0.2%, so no pharmacologic intervention is necessary at this time. 3. Microscopic Hematuria The patient has persistent microscopic hematuria noted on urinalysis. A referral will be placed to Urology for further evaluation. 4. Depression The patient's PHQ-9 score is 9, indicating mild depression. She is actively engaged with a therapist, and this will be continued. 5. Anxiety The patient is managing her anxiety with magnesium as per another provider's advice and is using lorazepam as needed. Continue current management. 6. Contraception Management The patient is taking Junel oral contraceptive pills after having her IUD removed. She is on a waiting list for a tubal ligation procedure. Orders: Orders Influenza [id number] Immunization Today Z23 - Encounter for immunization Referrals Urology Referral R31.29 - Other microscopic hematuria
[2025-03-06 09:43] VITALS: BP 96/68; PULSE 68; TEMP 36.3; O2SAT 97; BMI 29.2
== END 2025-03-06 10:12 | disposition home or self-care (01) ==
LOC: HO.HMCH 09:35
PROVIDERS: PCP Internal Medicine; Visit Provider Internal Medicine
DX: Z00.00 Encounter for general adult medical examination without abnormal findings (principal); F33.1 Major depressive disorder, recurrent, moderate; R31.29 Other microscopic hematuria

== ENCOUNTER → 2025-03-06 09:35 | Outpatient (BNVA) | payer OTHER, SELFPAY | PROVIDERS: PCP Internal Medicine; Visit Provider Internal Medicine | DX: Z28.21 Immunization not carried out because of patient refusal (principal); F33.1 Major depressive disorder, recurrent, moderate; R31.29 Other microscopic hematuria | CPT/HCPCS: 96127; 99396 ==